=== PATIENT | male | born 1965 | race Caucasian/White ===

== ENCOUNTER → 2021-08-27 | Outpatient (CLI) | payer MEDICAID ==
--- NOTE | 2021-08-27 21:29 | MR ---
EXAMINATION TYPE: MR knee LT wo con DATE OF EXAM: 08/27/2021 COMPARISON: Plain film 08/13/2021 HISTORY: Left knee pain x 2 mos, no trauma. TECHNIQUE: Multiplanar, multisequence imaging of the left knee is performed without IV contrast. FINDINGS: MEDIAL MENISCUS: Suspect partial meniscocapsular separation, coronal image #22 through 25 medially LATERAL MENISCUS: Anterior and posterior horns are intact without tear. CRUCIATE LIGAMENTS: The anterior and posterior cruciate ligaments are intact and unremarkable. COLLATERAL LIGAMENTS: The medial collateral ligament shows fluid signal along its course suggestive o f strain EXTENSOR MECHANISM: Visualized quadriceps and patellar tendons are intact. EFFUSION: Small suprapatellar joint effusion POPLITEAL CYST: Small Rangel's cyst measuring 11 mm x 8 mm x 20 mm TRICOMPARTMENT SPACES: Maintained CARTILAGE: There is grade 2 to grade III chondromalacia in the medial compartment and posterior mensah la BONE MARROW SIGNAL: Suspect possible enchondroma posterior aspect of the distal femoral metaphysis, b one island present within the lateral femoral condyle OTHER: Subcutaneous edema changes present IMPRESSION: Osteoarthritis. Suspect a degree of meniscocapsular separation, medial collateral ligament strain and additional findings above.
== END | disposition home or self-care (01) ==
LOC: RADMRIMAIN 19:49
PROVIDERS: ATTEND Orthopaedic Surgery
DX: M17.12 Unilateral primary osteoarthritis, left knee (principal)

== ENCOUNTER → 2022-12-16 | Outpatient (CLI) | payer OTHER ==
[2022-12-16 16:15] LABS: ALT 42 U/L (10-49); AST 27 U/L (14-35); Albumin 4.5 d/dL (3.8-4.9); Albumin/Globulin Ratio 1.73 Ratio (1.60-3.17); Alkaline Phosphatase 47 U/L (41-126); BUN/Creat Ratio 16.89 Ratio (12.00-20.00); Blood Urea Nitrogen 15.2 mg/dL (9.0-27.0); Calcium 9.6 mg/dL (8.7-10.3); Carbon Dioxide 23.4 mmol/L (21.6-31.8); Chloride 103 mmol/L (96-109); Chol/HDL Ratio 4.71 Ratio; Globulin 2.6 d/dL (1.6-3.3); Glucose 109 mg/dL (70-110); LDL Cholesterol,Calculated 181.5 mg/dL (0.0-131.0); Potassium 4.8 mmol/L (3.5-5.5); Sodium 139 mmol/L (135-145); Total Bilirubin 0.3 mg/dL (0.3-1.2); Total Protein 7.1 d/dL (6.2-8.2)
[2022-12-16 16:22] LABS: Basophils # (A) 0.04 X 10*3/uL (0.00-0.10); Basophils % (A) 0.5 %; Eosinophils # (A) 0.26 X 10*3/uL (0.04-0.35); Eosinophils % (A) 3.3 %; HCT 46.7 % (39.6-50.0); HGB 15.3 d/dL (12.0-15.0); Lymphocytes # (A) 1.27 X 10*3/uL (0.90-5.00); Lymphocytes % (A) 16.3 %; MCH 30.8 pg (27.0-32.0); MCHC 32.8 d/dL (32.0-37.0); Mean Platelet Volume 9.4 FL (9.5-12.2); Monocytes # (A) 0.75 X 10*3/uL (0.20-1.00); Monocytes % (A) 9.6 %; NRBC Per 100 WBC 0 X 10*3/uL (0.00-0.01); Neutrophils # (A) 5.44 X 10*3/uL (1.80-7.70); Platelet Count 320 X 10*3/uL (140-440); RBC 4.97 X 10*6/uL (4.40-5.60); RBC Morphology Normal (Normal); RDW 12.4 % (11.5-14.5); WBC 7.78 X 10*3/uL (4.50-10.00)
== END | disposition home or self-care (01) ==
LOC: LABWHC1 09:41
PROVIDERS: ATTEND Family Medicine
DX: Z00.00 Encounter for general adult medical examination without abnormal findings (principal); E55.9 Vitamin D deficiency, unspecified
CPT/HCPCS: 36415; 80053; 80061; 82306; 84153; 84443; 85025

== ENCOUNTER 2023-04-01 10:13 | Inpatient (IN) | payer OTHER ==
[~2023-04-01 10:13] MED LIST: hydrALAZINE HCL 20 MG/ML 1 ML VIAL IVP ONE
[2023-04-01] MEDS ORDERED: SODIUM CHLORIDE 0.9% 500 ML 500 ML IV STA (10:27)
--- NOTE | 2023-04-01 10:30 | ED ---
General Adult HPI - General Chief complaint: Neuro Symptoms/Deficit Stated complaint: Left side numbness Time Seen by Provider: 04/01/23 10:23 Source: patient, RN notes reviewed, old records reviewed Mode of arrival: ambulatory Limitations: no limitations - History of Present Illness Initial comments: 57-year-old male history of hypertension presenting for evaluation of left arm and leg weakness which began at 2100 yesterday. Patient denies headache. He noted that his arm was both numb and weak and that he was dragging his left leg which was also numb. Patient woke this morning with persistent symptoms and presented for evaluation. No chest pain. No abdominal pain. No headache. - Related Data Home Medications Medication Instructions Recorded Confirmed Acetaminophen-Codeine 300-30mg 1 each PO Q6H PRN 11/04/13 11/05/13 [Tylenol w/codeine #3] Atorvastatin [Lipitor] 10 mg PO DAILY 11/04/13 11/05/13 Cefadroxil 500 mg PO Q12HR 11/04/13 11/05/13 lisinopriL [Zestril] 20 mg PO DAILY PRN 11/04/13 11/05/13 Previous Rx's Medication Instructions Recorded HYDROcodone/APAP 7.5-325MG [[place] 1 - 2 each PO Q6H PRN #60 tab 11/07/13 7.5-325] Allergies Allergy/AdvReac Type Severity Reaction Status Date / Time No Known Allergies Allergy Verified 11/05/13 12:14 Review of Systems ROS Statement: Those systems with pertinent positive or pertinent negative responses have been documented in the HPI. ROS Other: All systems not noted in ROS Statement are negative. Past Medical History Past Medical History: Hyperlipidemia, Hypertension, Osteoarthritis (OA) History of Any Multi-Drug Resistant Organisms: None Reported Past Surgical History: Joint Replacement Additional Past Surgical History / Comment(s): 9 teeth pulled under anesthesia Past Anesthesia/Blood Transfusion Reactions: No Reported Reaction Past Psychological History: No Psychological Hx Reported Past Alcohol Use History: Daily, Heavy Past Drug Use History: Marijuana - Past Family History Father Family Medical History: Cancer General Exam Limitations: no limitations General appearance: alert, in no apparent distress Head exam: Present: atraumatic, normocephalic Eye exam: Present: normal appearance, PERRL ENT exam: Present: normal exam Neck exam: Present: normal inspection. Absent: tenderness, meningismus Respiratory exam: Present: normal lung sounds bilaterally. Absent: respiratory distress, wheezes Cardiovascular Exam: Present: regular rate, normal rhythm GI/Abdominal exam: Present: soft. Absent: distended, tenderness, guarding Extremities exam: Present: normal inspection, normal capillary refill Neurological exam: Present: alert, oriented X3, CN II-XII intact, motor sensory deficit (Left upper extremity numbness, weakness, ataxia, left lower extremity numbness and weakness and ataxia. NIH of 6) Psychiatric exam: Present: normal affect, normal mood Skin exam: Present: warm, dry, intact. Absent: cyanosis, diaphoretic Course Vital Signs 04/01/23 04/01/23 04/01/23 10:17 10:35 10:50 Temperature 98.1 F 98.1 F Pulse Rate 78 83 70 Respiratory 20 18 18 Rate Blood Pressure 205/91 198/101 203/103 O2 Sat by Pulse 99 97 96 Oximetry 04/01/23 04/01/23 04/01/23 11:05 11:20 11:35 Temperature 98.0 F Pulse Rate 73 59 L 72 Respiratory 18 18 18 Rate Blood Pressure 191/102 201/104 204/112 O2 Sat by Pulse 96 96 96 Oximetry 04/01/23 12:00 Temperature 98.1 F Pulse Rate 59 L Respiratory 18 Rate Blood Pressure 196/95 O2 Sat by Pulse 95 Oximetry - Reevaluation(s) Reevaluation #1: 04/01/23 10:[address] Jonas. 04/01/23 12:[address] Jonas, recommends medical management Reevaluation #2: 04/01/23 12:24 NIH of 6 Medical Decision Making - Medical Decision Making Was pt. sent in by a medical professional or institution (, PA, MEDIA ARTS PROFESSOR, urgent care, hospital, or fci...) When possible be specific @ -No Did you speak to anyone other than the patient for history (EMS, parent, family, police, friend...)? What history was obtained from this source @ -No Did you review nursing and triage notes (agree or disagree)? Why? @ -I reviewed and agree with nursing and triage notes Were old charts reviewed (outside hosp., previous admission, EMS record, old EKG, old radiological studies, urgent care reports/EKG's, fci records)? Report findings @ -No old charts were reviewed Differential Diagnosis (chest pain, altered mental status, abdominal pain women, abdominal pain men, vaginal bleeding, weakness, fever, dyspnea, syncope, headache, dizziness, GI bleed, back pain, seizure, CVA, palpatations, mental health, musculoskeletal)? @ -[Differential CVA Ischemic stroke, hemorrhagic stroke, brain tumor, atypical migraine, Wernicke's encephalopathy, seizure, multiple sclerosis, meningitis, encephalitis, hypoglycemia, Guillain-Mason, electrolytes disturbance, myasthenia gravis.... This is not meant to be an all-inclusive list EKG interpreted by me (3pts min.). @ -Sinus rhythm rate of 78, RI interval 200, QRS duration 92, QTC 414, no ST segment elevation. X-rays interpreted by me (1pt min.). @ -None done CT interpreted by me (1pt min.). @CT brain without contrast, negative for hemorrhage U/S interpreted by me (1pt. min.). @ -None done What testing was considered but not performed or refused? (CT, X-rays, U/S, labs)? Why? @ -None What meds were considered but not given or refused? Why? @ -None Did you discuss the management of the patient with other professionals (professionals i.e. , PA, MEDIA ARTS PROFESSOR, lab, RT, psych nurse, social security specialist, burn center nurse, t eacher, combatant diver officer, employment case manager)? Give summary @Dr. Garcia, [facility] Was smoking cessation discussed for >3mins.? @ -No Was critical care preformed (if so, how long)? @ -Yes, 35 minutes Were there social determinants of health that impacted care today? How? (Homelessness, low income, unemployed, alcoholism, drug addiction, transportation, low edu. Level, literacy, decrease access to med. care, nursing home, rehab)? @ -No Was there de-escalation of care discussed even if they declined (Discuss DNR or withdrawal of care, Hospice)? DNR status @ -No What co-morbidities impacted this encounter? (DM, HTN, Smoking, COPD, CAD, Cancer, CVA, ARF, Chemo, Hep., AIDS, mental health diagnosis, sleep apnea, morbid obesity)? @ -Hypertension Was patient admitted / discharged? Hospital course, mention meds given and route, prescriptions, significant lab abnormalities, going to OR and other pertinent info. @ -[57-year-old male with left-sided weakness and numbness. Patient has initial NIH of 6 Weakness, numbness and ataxia in both the left arm and left leg. A code stroke is activated. The patient receives both CT CT angiography which are reviewed both by radiology and by interventional neurology. Patient's symptom onset time excludes him from TPA. He will require medical management for acute CVA. He'll be admitted to Dr. Garcia who is aware with neurology on consult. Undiagnosed new problem with uncertain prognosis? @ -No Drug Therapy requiring intensive monitoring for toxicity (Heparin, Nitro, Insu emely, Cardizem)? @ -No Were any procedures done? @ -No Diagnosis/symptom? @Acute CVA with left-sided weakness Acute, or Chronic, or Acute on Chronic? @ -Acute Uncomplicated (without systemic symptoms) or Complicated (systemic symptoms)? @ -Complicated Side effects of treatment? @ -No Exacerbation, Progression, or Severe Exacerbation? @ -No Poses a threat to life or bodily function? How? (Chest pain, [place], [place], pneumonia, PE, COPD, DKA, ARF, appy, cholecystitis, CVA, Diverticulitis, Homicidal, Suicidal, threat to staff... and all critical care pts) @ -[Yes, CVA - Lab Data Result diagrams: 04/01/23 10:37 04/01/23 10:37 Lab Results 04/01/23 04/01/23 04/01/23 Range/Units 10:34 10:37 10:37 WBC 7.9 (3.8-10.6) k/uL RBC 4.80 (4.30-5.90) m/uL Hgb 15.3 (13.0-17.5) gm/dL Hct 45.6 (39.0-53.0) % MCV 94.8 (80.0-100.0) fL MCH 31.8 (25.0-35.0) pg MCHC 33.5 (31.0-37.0) g/dL RDW 12.4 (11.5-15.5) % Plt Count 313 (150-450) k/uL MPV 6.8 Neutrophils % 73 % Lymphocytes % 15 % Monocytes % 8 % Eosinophils % 2 % Basophils % 0 % Neutrophils # 5.7 (1.3-7.7) k/uL Lymphocytes # 1.2 (1.0-4.8) k/uL Monocytes # 0.6 (0-1.0) k/uL Eosinophils # 0.2 (0-0.7) k/uL Basophils # 0.0 (0-0.2) k/uL PT 10.1 (9.0-12.0) sec INR 1.0 (<1.2) APTT 24.3 (22.0-30.0) sec Sodium (137-145) mmol/L Potassium (3.5-5.1) mmol/L Chloride (98-107) mmol/L Carbon Dioxide (22-30) mmol/L Anion Gap mmol/L BUN (9-20) mg/dL Creatinine (0.66-1.25) mg/dL Est GFR (CKD-EPI)AfAm (>60 ml/min/1.73 sqM) Est GFR (CKD-EPI)NonAf (>60 ml/min/1.73 sqM) Glucose (74-99) mg/dL POC Glucose (mg/dL) 114 H (70-110) mg/dL POC Glu News Librarian ID Les Garza Calcium (8.4-10.2) mg/dL Total Bilirubin (0.2-1.3) mg/dL AST (17-59) U/L ALT (4-49) U/L Alkaline Phosphatase (38-126) U/L Creatine Kinase (55-170) U/L Troponin I (0.000-0.034) ng/mL Total Protein (6.3-8.2) g/dL Albumin (3.5-5.0) g/dL 04/01/23 04/01/23 Range/Units 10:37 10:37 WBC (3.8-10.6) k/uL RBC (4.30-5.90) m/uL Hgb (13.0-17.5) gm/dL Hct (39.0-53.0) % MCV (80.0-100.0) fL MCH (25.0-35.0) pg MCHC (31.0-37.0) g/dL RDW (11.5-15.5) % Plt Count (150-450) k/uL MPV Neutrophils % % Lymphocytes % % Monocytes % % Eosinophils % % Basophils % % Neutrophils # (1.3-7.7) k/uL Lymphocytes # (1.0-4.8) k/uL Monocytes # (0-1.0) k/uL Eosinophils # (0-0.7) k/uL Basophils # (0-0.2) k/uL PT (9.0-12.0) sec INR (<1.2) APTT (22.0-30.0) sec Sodium 138 (137-145) mmol/L Potassium 4.3 (3.5-5.1) mmol/L Chloride 103 (98-107) mmol/L Carbon Dioxide 26 (22-30) mmol/L Anion Gap 9 mmol/L BUN 14 (9-20) mg/dL Creatinine 0.80 (0.66-1.25) mg/dL Est GFR (CKD-EPI)AfAm >90 (>60 ml/min/1.73 sqM) Est GFR (CKD-EPI)NonAf >90 (>60 ml/min/1.73 sqM) Glucose 118 H (74-99) mg/dL POC Glucose (mg/dL) (70-110) mg/dL POC Glu News Librarian ID Calcium 9.7 (8.4-10.2) mg/dL Total Bilirubin 1.0 (0.2-1.3) mg/dL AST 30 (17-59) U/L ALT 36 (4-49) U/L Alkaline Phosphatase 46 (38-126) U/L Creatine Kinase 134 (55-170) U/L Troponin I <0.012 (0.000-0.034) ng/mL Total Protein 7.8 (6.3-8.2) g/dL Albumin 4.6 (3.5-5.0) g/dL Critical Care Time Critical Care Time: Yes Total Critical Care Time: 35 Disposition Clinical Impression: Cerebrovascular accident (CVA) Disposition: ADMITTED IP TO THIS [facility] Condition: Stable Is patient prescribed a controlled substance at d/c from ED?: No Referrals: Jonathan Araiza [Primary Care Provider] - 1-2 days Time of Disposition: 12:27
[2023-04-01 10:36] LABS: Glucose,Whole Blood 114 mg/dL (70-110)
[2023-04-01 11:06] LABS: Basophils % (A) 0 %; Eosinophils # (A) 0.2 k/uL (0-0.7); Eosinophils % (A) 2 %; HCT 45.6 % (39.0-53.0); HGB 15.3 gm/dL (13.0-17.5); Lymphocytes # (A) 1.2 k/uL (1.0-4.8); Lymphocytes % (A) 15 %; MCH 31.8 pg (25.0-35.0); MCHC 33.5 g/dL (31.0-37.0); MCV 94.8 fL (80.0-100.0); Mean Platelet Volume 6.8; Monocytes # (A) 0.6 k/uL (0-1.0); Monocytes % (A) 8 %; Neutrophils # (A) 5.7 k/uL (1.3-7.7); Neutrophils % (A) 73 %; Platelet Count 313 k/uL (150-450); RDW 12.4 % (11.5-15.5); WBC 7.9 k/uL (3.8-10.6)
--- NOTE | 2023-04-01 11:07 | CT ---
EXAMINATION TYPE: CT brain wo con DATE OF EXAM: 04/01/2023 COMPARISON: None HISTORY: CODE STROKE CT DLP: 1973.6 mGycm Automated exposure control for dose reduction was used. FINDINGS: The ventricles, basal cisterns and sulci over convexities within normal limits. There is no mass effe ct or shift of midline structures. No abnormal density is seen throughout the brain parenchyma and there is no acute intra or extra-axia l hemorrhage. The posterior fossa is grossly normal. Intraorbital contents appear normal and symmetric. The paranasal sinuses and mastoid air cells are well aerated. IMPRESSION: No acute bleed or mass effect. IMPRESSION:
[2023-04-01 11:19] LABS: ALT 36 U/L (4-49); AST 30 U/L (17-59); African American GFR (CKD) >90 (>60 ml/min/1.73 sqM); Albumin 4.6 g/dL (3.5-5.0); Alkaline Phosphatase 46 U/L (38-126); Anion Gap 9 mmol/L; Blood Urea Nitrogen 14 mg/dL (9-20); Calcium 9.7 mg/dL (8.4-10.2); Carbon Dioxide 26 mmol/L (22-30); Chloride 103 mmol/L (98-107); Creatine Kinase 134 U/L (55-170); Glucose 118 mg/dL (74-99); Non-African American GFR(CKD) >90 (>60 ml/min/1.73 sqM); Potassium 4.3 mmol/L (3.5-5.1); Sodium 138 mmol/L (137-145); Total Protein 7.8 g/dL (6.3-8.2)
[2023-04-01 11:22] LABS: Partial Thromboplastin Time 24.3 sec (22.0-30.0); Prothrombin Time 10.1 sec (9.0-12.0)
[2023-04-01] MEDS ORDERED: ASPIRIN 325 MG TAB PO STA (11:34)
--- NOTE | 2023-04-01 11:58 | CT ---
EXAMINATION TYPE: CT angio head neck DATE OF EXAM: 04/01/2023 HISTORY: Code Stroke COMPARISON: None CT DLP: 1973.6 mGycm. Automated Exposure Control for Dose Reduction was Utilized. TECHNIQUE: CTA scan of the head and neck is performed without and with IV Contrast, patient injected with 65 ml mL of Isovue 370, axial images are obtained, coronal and sagittal reformatted images are reviewed. 3D reconstructed images are created on an independent workstation and reviewed. 3-D postpro cessing was performed FINDINGS: CTA neck: The brachiocephalic origins are widely patent. There is no significant stenosis of the common or or internal carotid arteries within the neck. There is minimal calcified plaque formation in the proximal internal carotid arteries bilaterally. The right vertebral artery is dominant but there is no vertebral artery stenosis. CTA HEAD: Intracranially, there is no segmental occlusion, sizable aneurysm sac or vascular malformation.. IMPRESSION: No significant arterial disease of the head and neck as described above.
[2023-04-01] MEDS: SODIUM CHLORIDE 0.9% 1,000 ML IV SCH (12:18)
--- NOTE | 2023-04-01 12:48 | XR ---
EXAMINATION TYPE: XR chest 2V DATE OF EXAM: 04/01/2023 COMPARISON: NONE HISTORY: Altered mental status TECHNIQUE: Frontal and lateral views of the chest are obtained. FINDINGS: There is no focal air space opacity, pleural effusion, or pneumothorax seen. The cardiac silhouette size is within normal limits. The osseous structures are intact. IMPRESSION: No acute cardiopulmonary process.
[2023-04-01] MEDS ORDERED: ACETAMINOPHEN TAB 325 MG TAB PO PRN (13:47)
[2023-04-01] MEDS ORDERED: hydrALAZINE HCL 20 MG/ML 1 ML VIAL IVP PRN (13:56)
--- NOTE | 2023-04-01 13:57 | P.HPIM ---
History of Present Illness H&P Date: 04/01/23 History of present illness; patient is a 57-year-old gentleman with past medical significant for hypertension and apparent the ER because of left-sided weakness that started yesterday. Patient stated that he was all right yesterday evening at around 9 PM started noticing that his left arm and leg were numb and also weaker. Denied any slurred speech. There was no complaint of any facial droop. No complain of any recent fall. Patient initially did not pay any attention to it as he has history of sciatica and thought it was secondary to that. Patient went to sleep and woke up this morning with persistent weakness of left side. Because of this persistent weakness, patient came to the ER Initial lab work done in the ER showed WBC 7.9, hemoglobin 15.3, platelet count 313, sodium 138, potassium 4.3, BUN 14, glucose 118, AST 30 ALT 36 troponin 0.012 EKG done in the ER showed heart rate of 78, normal sinus rhythm, no ST segment elevation or T-wave inversion noticeable CT brain negative for acute cranial process CTA head and neck negative for any significant stenosis of head and neck circulation Chest x-ray done in the ER for any acute cardiopulmonary process ER physician talked to the on-call interventional neurologist and was decided the patient was not a candidate for TPA, they recommended MRI and medical management Patient admitted to medicine service REVIEW OF SYSTEMS: CONSTITUTIONAL: No fever, no malaise, no fatigue. HEENT: No recent visual problems or hearing problems. Denied any sore throat. CARDIOVASCULAR: No chest pain, orthopnea, PND, no palpitations, no syncope. PULMONARY: No shortness of breath, no cough, no hemoptysis. GASTROINTESTINAL: No diarrhea, no nausea, no vomiting, no abdominal pain. NEUROLOGICAL: As mentioned in HPI HEMATOLOGICAL: Denies any bleeding or petechiae. GENITOURINARY: Denies any burning micturition, frequency, or urgency. MUSCULOSKELETAL/RHEUMATOLOGICAL: Denies any joint pain, swelling, or any muscle pain. ENDOCRINE: Denies any polyuria or polydipsia. The rest of the 14-point review of systems is negative. PHYSICAL EXAMINATION: GENERAL: The patient is alert and oriented x3, not in any acute distress. Well developed, well nourished. HEENT: Pupils are round and equally reacting to light. EOMI. No scleral icterus. No conjunctival pallor. Normocephalic, atraumatic. No pharyngeal erythema. No th yromegaly. CARDIOVASCULAR: S1 and S2 present. No murmurs, rubs, or gallops. PULMONARY: Chest is clear to auscultation, no wheezing or crackles. ABDOMEN: Soft, nontender, nondistended, normoactive bowel sounds. No palpable organomegaly. MUSCULOSKELETAL: No joint swelling or deformity. EXTREMITIES: No cyanosis, clubbing, or pedal edema. NEUROLOGICAL: Gross neurological examination did not reveal any focal deficits. Muscle strength 4/5 in left upper and lower extremity, muscle strength 5 x 5 in right side. Decreased sensation to touch noticeable in left arm and leg. Plantars are downgoing bilaterally SKIN: No rashes. Assessment and plan Acute CVA Hypertension Monitor vital signs Monitor CBC Monitor CMP Continue telemetry monitoring Continue neurochecks Ordered HbA1c level Order lipid panel Continue aspirin and Lipitor Ordered 2-D echo Ordered MRI brain Consult neurology PT and OT consulted Labs and medication were reviewed.. Continue same treatment. Continue with symptomatic treatment. Resume home medication. Monitor labs and vitals. DVT and GI prophylaxis. Further recommendations as per clinical course of the patient Dictation was produced using [employer] dictation software. please excuse any grammatical, word or spelling errors. Past Medical History Past Medical History: Hyperlipidemia, Hypertension, Osteoarthritis (OA) History of Any Multi-Drug Resistant Organisms: None Reported Past Surgical History: Joint Replacement Additional Past Surgical History / Comment(s): 9 teeth pulled under anesthesia Past Anesthesia/Blood Transfusion Reactions: No Reported Reaction Past Psychological History: No Psychological Hx Reported Past Alcohol Use History: Daily, Heavy Past Drug Use History: Marijuana - Past Family History Father Family Medical History: Cancer Medications and Allergies Home Medications Medication Instructions Recorded Confirmed Type amLODIPine [Norvasc] 2.5 mg PO DAILY 04/01/23 04/01/23 History lisinopriL 30 mg PO DAILY 04/01/23 04/01/23 History Allergies Allergy/AdvReac Type Severity Reaction Status Date / Time No Known Allergies Allergy Verified 04/01/23 12:57 Physical Exam Vitals: Vital Signs Temp Pulse Resp BP Pulse Ox 04/01/23 12:30 65 18 187/97 96 04/01/23 12:00 98.1 F 59 L 18 196/95 95 04/01/23 11:35 72 18 204/112 96 04/01/23 11:20 59 L 18 201/104 96 04/01/23 11:05 98.0 F 73 18 191/102 96 04/01/23 10:50 70 18 203/103 96 04/01/23 10:35 98.1 F 83 18 198/101 97 04/01/23 10:17 98.1 F 78 20 205/91 99 Intake and Output 03/31/23 04/01/23 04/01/23 22:59 06:59 14:59 Other: Weight 97.522 kg Results CBC & Chem 7: 04/01/23 10:37 04/01/23 10:37 Labs: Abnormal Lab Results - Last 24 Hours (Table) 04/01/23 04/01/23 Range/Units 10:34 10:37 Glucose 118 H (74-99) mg/dL POC Glucose (mg/dL) 114 H (70-110) mg/dL
--- NOTE | 2023-04-01 18:12 | P.CNNES ---
History of Present Illness Consult date: 04/01/23 Requesting physician: Dereje Lynch Reason for Consult: cva History of Present Illness: This is a 57-year-old gentleman with history of hypertension who presented to the department on 04/01/2023 because of left-sided weakness and numbness. He presented today aorund 10:13am. He stated that his left-sided weakness and numbness began yesterday around 7 PM borders mild then when he woke up today he felt was not much worse especially left upper extremity. He saw his symptoms will improve is why he did not seek any medical attention. He states that he has history of hypertension and his blood pressure is in the 140s at. He denies being on any antiplatelets or anticoagulation. Denies history of stroke or TIA in the past. As of tobacco use. Denies of any illicit drug use. He states he drinks sixpack every other day. He denies of any headache. Denies of any finding difficulty, any difficulty swallowing. Some other workup during this hospital visit consisted of: Initial vital signs his blood pressure is 205/91 and his systolic blood pressure has been in the range of 190s to 200s diastolic has been in the range of 90s to 100s. CBC with differential, chemistry panel seems unremarkable CT angiography the head and neck was reported as no significant arterial disease of the head and neck as described above. CT of the head is reported as no acute bleed or mass effect. Personally review the CT head and was no large or significant acute or subacute ischemia and there is no bleed. Stroke code was activated by ED team. NIH stroke scale is 6. No IV tpa since outside window since last normal was on 03/31/23 at 7pm. Review of Systems Review of system is a positive and negative as per HPI. Past Medical History Past Medical History: Hyperlipidemia, Hypertension, Osteoarthritis (OA) History of Any Multi-Drug Resistant Organisms: None Reported Past Surgical History: Joint Replacement Additional Past Surgical History / Comment(s): 9 teeth pulled under anesthesia Past Anesthesia/Blood Transfusion Reactions: No Reported Reaction Past Psychological History: No Psychological Hx Reported Past Alcohol Use History: Daily, Heavy Past Drug Use History: Marijuana - Past Family History Father Family Medical History: Cancer Medications and Allergies Home Medications Medication Instructions Recorded Confirmed Type amLODIPine [Norvasc] 2.5 mg PO DAILY 04/01/23 04/01/23 History lisinopriL 30 mg PO DAILY 04/01/23 04/01/23 History Allergies Allergy/AdvReac Type Severity Reaction Status Date / Time No Known Allergies Allergy Verified 04/01/23 12:57 Physical Examination - Vital Signs Vital Signs: Vital Signs Temp Pulse Resp BP Pulse Ox 04/01/23 16:30 86 18 168/91 96 04/01/23 15:30 98.0 F 80 18 184/96 95 04/01/23 13:50 59 L 18 182/97 94 L 04/01/23 13:30 76 18 201/108 96 04/01/23 13:00 65 18 185/98 96 04/01/23 12:30 65 18 187/97 96 04/01/23 12:00 98.1 F 59 L 18 196/95 95 04/01/23 11:35 72 18 204/112 96 04/01/23 11:20 59 L 18 201/104 96 04/01/23 11:05 98.0 F 73 18 191/102 96 04/01/23 10:50 70 18 203/103 96 04/01/23 10:35 98.1 F 83 18 198/101 97 04/01/23 10:17 98.1 F 78 20 205/91 99 Intake and Output 04/01/23 04/01/23 04/01/23 06:59 14:59 22:59 Other: Weight 97.522 kg GENERAL: The patient is lying in bed and is not in acute distress. NEUROLOGICAL: Higher mental function: The patient is awake, alert, oriented to self, place and time. Patient is following commands. No aphasia and no neglect. Cranial nerves: The pupils are round, equal and reactive to light and accommodation. Visual davis are full to confrontation throughout. Extraocular movement is intact no nystagmus is noted. Facial sensation is normal to touch throughout. The facial strength is normal throughout. Hearing is normal bilaterally to hand rub. Tongue is midline and moved [id number] without any difficulty. No dysarthria is noted. Shoulder shrug is normal bilaterally. Motor: The strength is left upper exremity is 3-4 over the upper extremity extensor with left hand camera assembler 4- with left arm drift. Left lower extremity is 4+. Otherwise 5 over 5 throughout right side. Mildly decrease tone over the left side. Normal bulk. Cerebellum: Difficulty perfroming left since weakness. But normal finger to nose heel to lilly on the right. . Sensation: Sensation is normal to touch throughout. Reflexes (right/left): 2+ throughout. Plantars are downgoing bilaterally. Results - Laboratory Findings CBC and BMP: 04/01/23 10:37 04/01/23 10:37 Abnormal Lab Findings: Abnormal Labs 04/01/23 04/01/23 10:34 10:37 Glucose 118 H POC Glucose (mg/dL) 114 H Assessment and Plan Assessment: This is a 57-year-old gentleman with history of hypertension and states his blood pressure runs in the 140s who presents them are department on 04/01/2023 in morning because of left-sided weakness and numbness that began on 03/31/2023 around 7 PM. He felt his symptoms were mild at night yesterday but was worse when he woke up today. Acute left-sided weakness with numbness and had NIH stroke scale of a 6 in the ED is likely due to acute ischemic stroke. Escalated hypertension and the blood pressure has been in the 200s over 90s to 100 History of hypertension Alcohol use and he drinks 6 pack every other day Plan: In the ED the patient was given aspirin 325mg once then was started on aspirin 325 daily. In addition I started the patient on Plavix 75 mg daily. He was started by ED team on Lipitor 80 mg daily at bedtime for secondary stroke prophylaxis. MR the brain, 2-D echo, lipid panel, hemoglobin A1c are ordered and pending. I ordered TSH level Continue Neuro checks Cardiac monitoring PT OT and CHILDREN'S BOOK AUTHOR are consulted Please avoid aggressive management of the hypertension and recommend permissive hypertension for 24-48 hours. Treat systolic blood pressure of more than 180. Placed the patient on thiamine 100 mg daily because of his alcohol use and he drinks 6 packs every other day and he was notified to decrease the consumption when he does drink on that particular day I ordered alcohol level as well as urine drug screen We'll defer the rest of the medical management to primary team For DVT prophylaxis I started the patient on subcu heparin 5000 Hz every 12 hours The plan discussed with the patient and his nurse Thank you consultation Time with Patient: Greater than 30
[2023-04-01 19:06] LABS: Alcohol <10 mg/dL
[2023-04-01 20:03] LABS: Amphetamine Screen,Urine Not Detected (NotDetected); Barbiturate Screen,Urine Not Detected (NotDetected); Benzodiazepines Screen,Urine Not Detected (NotDetected); Cocaine Screen,Urine Not Detected (NotDetected); Methadone Screen, Urine Not Detected (NotDetected); Opiate Screen,Urine Not Detected (NotDetected); Oxycodone Screen, Urine Not Detected (NotDetected); Phencyclidine Screen,Urine Not Detected (NotDetected); Tricyclic Antidepressant,Urine Not Detected (NotDetected); Urn Cannabinoid Scrn Detected (NotDetected)
[2023-04-01] MEDS: ATORVASTATIN 80 MG TAB PO SCH (22:23)
[2023-04-01] MEDS: HEPARIN SODIUM,PORCINE 5,000 UNIT/ML 1 ML VIAL SQ SCH (22:23)
[2023-04-01] MEDS: CLOPIDOGREL 75 MG TAB PO SCH (22:23)
[2023-04-02] MEDS: SODIUM CHLORIDE 0.9% 1,000 ML IV SCH ×2 (02:52→18:11)
[2023-04-02] MEDS ORDERED: hydrALAZINE HCL 20 MG/ML 1 ML VIAL IVP STA (04:18)
[2023-04-02] MEDS: CLOPIDOGREL 75 MG TAB PO SCH (09:11)
[2023-04-02] MEDS: THIAMINE 100 MG TAB PO SCH (09:11)
[2023-04-02] MEDS: ASPIRIN 325 MG TAB PO SCH (09:11)
[2023-04-02] MEDS: HEPARIN SODIUM,PORCINE 5,000 UNIT/ML 1 ML VIAL SQ SCH ×2 (09:11→20:12)
--- NOTE | 2023-04-02 11:43 | P.PN ---
Subjective Progress Note Date: 04/02/23 I am following-up with patient and he felt minimally better today in his strength in left upper extremity. He had some numbness over the left cheek. Otherwise feels about the same. Objective - Vital Signs Vital signs: Vital Signs Temp 98.2 F 04/02/23 11:29 Pulse 70 04/02/23 11:29 Resp 17 04/02/23 11:29 BP 171/94 04/02/23 11:29 Pulse Ox 99 04/02/23 11:29 FiO2 Intake & Output 04/01/23 04/02/23 04/02/23 18:59 06:59 18:59 Intake Total 118 Output Total 1300 250 Balance -1300 -132 Weight 97.522 kg Intake: Oral 118 Output: Urine 1300 250 Other: Voiding Method Urinal Urinal # Voids 2 - Exam GENERAL: The patient is lying in bed and is not in acute distress. NEUROLOGICAL: Higher mental function: The patient is awake, alert, oriented to self, place and time. Patient is following commands. No aphasia and no neglect. Cranial nerves: The pupils are round, equal and reactive to light and accommodation. Visual davis are full to confrontation throughout. Extraocular movement is intact no nystagmus is noted. Facial sensation is mildly decreased over the V2 distribution to touch. The facial strength is normal throughout. Hearing is normal bilaterally to hand rub. Tongue is midline and moved side -to-side without any difficulty. No dysarthria is noted. Shoulder shrug is normal bilaterally. Motor: The strength is left upper exremity is 3-4 over the upper extremity extensor with left hand hr manager 4- with left arm drift. Left lower extremity is 4+. Otherwise 5 over 5 throughout right side. Mildly decrease tone over the left side. Normal bulk. Cerebellum: Difficulty perfroming left since weakness. But normal finger to nose heel to lilly on the right. . Sensation: Sensation is normal to touch throughout. Reflexes (right/left): 2+ throughout. Plantars are downgoing bilaterally. Some other workup during this hospital visit consisted of: TSH: 3.24 CBC with differential, chemistry panel seems unremarkable UDS is positive for Marijuana and serum alcohol is <10. CT angiography the head and neck was reported as no significant arterial disease of the head and neck as described above. CT of the head is reported as no acute bleed or mass effect. Personally review the CT head and was no large or significant acute or subacute ischemia and there is no bleed. - Labs CBC & Chem 7: 04/01/23 10:37 04/01/23 10:37 Labs: Abnormal Lab Results - Last 24 Hours (Table) 04/01/23 Range/Units 19:17 U Marijuana (THC) Screen Detected H (NotDetected) Assessment and Plan Assessment: This is a 57-year-old gentleman with history of hypertension and states his blood pressure runs in the 140s who presents them are department on 04/01/2023 in morning because of left-sided weakness and numbness that began on 03/31/2023 around 7 PM. He felt his symptoms were mild at night yesterday but was worse when he woke up today. Acute left-sided weakness with numbness and had NIH stroke scale of a 6 in the ED is likely due to acute ischemic stroke. Escalated hypertension and the blood pressure has been in the 200s over 90s to 100 History of hypertension Alcohol use and he drinks 6 pack every other day Plan: Continue ASA 325mg daily and Plavix 75mg daily (was not on antiplatelets prior to this). Continue Lipitor 80 mg daily at bedtime for secondary stroke prophylaxis. MR the brain, 2-D echo, lipid panel, hemoglobin A1c are ordered and pending. Continue Neuro checks Cardiac monitoring PT OT and BOX STACKER are consulted Please avoid aggressive management of the hypertension and recommend permissive hypertension for 24 hours. Treat systolic blood pressure of more than 180. Placed the patient on thiamine 100 mg daily because of his alcohol use and he drinks 6 packs every other day and he was notified to decrease the consumption when he does drink on that particular day We'll defer the rest of the medical management to primary team For DVT prophylaxis On subcu heparin 5000 Hz every 12 hours The plan discussed with the patient. Dr. Celaya will start neurology service tomorrow A.M. Time with Patient: Less than 30
--- NOTE | 2023-04-02 12:10 | P.PN ---
Subjective Progress Note Date: 04/02/23 patient is a 57-year-old gentleman with past medical significant for hypertension and apparent the ER because of left-sided weakness that started yesterday. Patient stated that he was all right yesterday evening at around 9 PM started noticing that his left arm and leg were numb and also weaker. Denied any slurred speech. There was no complaint of any facial droop. No complain of any recent fall. Patient initially did not pay any attention to it as he has history of sciatica and thought it was secondary to that. Patient went to sleep and woke up this morning with persistent weakness of left side. Because of this persistent weakness, patient came to the ER Initial lab work done in the ER showed WBC 7.9, hemoglobin 15.3, platelet count 313, sodium 138, potassium 4.3, BUN 14, glucose 118, AST 30 ALT 36 troponin 0.012 EKG done in the ER showed heart rate of 78, normal sinus rhythm, no ST segment elevation or T-wave inversion noticeable CT brain negative for acute cranial process CTA head and neck negative for any significant stenosis of head and neck circulation Chest x-ray done in the ER for any acute cardiopulmonary process ER physician talked to the on-call interventional neurologist and was decided the patient was not a candidate for TPA, they recommended MRI and medical management Patient admitted to medicine service 04/02. Patient seen and examined. No acute issues overnight. Still has weakness of left side. Denies any slurred speech REVIEW OF SYSTEMS: CONSTITUTIONAL: No fever, no malaise,. CARDIOVASCULAR: No chest pain, no palpitations, no syncope. PULMONARY: No shortness of breath, no cough, GASTROINTESTINAL: No diarrhea, no nausea, no vomiting, no abdominal pain. NEUROLOGICAL: No headaches, no weakness, PHYSICAL EXAMINATION: GENERAL: The patient is alert and oriented x3, not in any acute distress. Well developed, well nourished. HEENT: Pupils are round and equally reacting to light. EOMI. No scleral icterus. No conjunctival pallor. Normocephalic, atraumatic. No pharyngeal erythema. No thyromegaly. CARDIOVASCULAR: S1 and S2 present. No murmurs, rubs, or gallops. PULMONARY: Chest is clear to auscultation, no wheezing or crackles. ABDOMEN: Soft, nontender, nondistended, normoactive bowel sounds. No palpable organomegaly. MUSCULOSKELETAL: No joint swelling or deformity. EXTREMITIES: No cyanosis, clubbing, or pedal edema. NEUROLOGICAL:. Cranial nerves II through XII intact Muscle strength 4/5 in left upper and lower extremity, muscle strength 5 x 5 in right side. Decreased sensation to touch noticeable in left arm and leg. Plantars are downgoing bilaterally SKIN: No rashes. Assessment and plan Acute CVA Hypertension Monitor vital signs Monitor CBC Monitor CMP Continue telemetry monitoring Continue neurochecks Ordered HbA1c level Order lipid panel Continue aspirin and Lipitor Ordered 2-D echo Ordered MRI brain Follow-up on neurology recommendations Follow-up on PT and OT recommendations Labs and medication were reviewed.. Continue same treatment. Continue with sym ptomatic treatment. Resume home medication. Monitor labs and vitals. DVT and GI prophylaxis. Further recommendations as per clinical course of the patient Dictation was produced using [employer] dictation software. please excuse any grammatical, word or spelling errors. Objective - Vital Signs Vital signs: Vital Signs Temp 98.0 F 04/02/23 08:10 Pulse 69 04/02/23 08:10 Resp 17 04/02/23 08:10 BP 169/87 04/02/23 08:10 Pulse Ox 97 04/02/23 09:14 FiO2 Intake & Output 04/01/23 04/02/23 04/02/23 18:59 06:59 18:59 Intake Total 118 Output Total 1300 250 Balance -1300 -132 Weight 97.522 kg Intake: Oral 118 Output: Urine 1300 250 Other: Voiding Method Urinal Urinal # Voids 2 - Labs CBC & Chem 7: 04/01/23 10:37 04/01/23 10:37 Labs: Abnormal Lab Results - Last 24 Hours (Table) 04/01/23 04/01/23 04/01/23 Range/Units 10:34 10:37 19:17 Glucose 118 H (74-99) mg/dL POC Glucose (mg/dL) 114 H (70-110) mg/dL U Marijuana (THC) Screen Detected H (NotDetected)
--- NOTE | 2023-04-02 13:15 | CA ---
Transthoracic Echo Report Name: Ralph Peacock Age: 57 Gender: M : 1965 Exam Date: 04/01/2023 15:19 Exam Location: [facility] Ht (in): 67 Wt (lb): 215 Ordering Physician: Velasquez Garcia MD Attending/Referring Phys: Manager Of Planning Alona Delcid RDCS Procedure CPT: Indications: Thrombus Cardiac Hx: Technical Quality: Technically difficult study Contrast 1: Lumason Total Dose (mL): 4 Contrast 2: Total Dose (mL): MEASUREMENTS (Male / Female) Normal Values 2D ECHO LV Diastolic Diameter PLAX 4.1 cm 4.2 - 5.9 / 3.9 - 5.3 cm LV Systolic Diameter PLAX 2.7 cm IVS Diastolic Thickness 1.5 cm 0.6 - 1.0 / 0.6 - 0.9 cm LVPW Diastolic Thickness 1.4 cm 0.6 - 1.0 / 0.6 - 0.9 cm LV Relative Wall Thickness 0.7 RV Internal Dim ED PLAX 3.5 cm LA Volume 68.7 cm??? 18 - 58 / 22 - 52 cm??? M-MODE Aortic Root Diameter MM 3.8 cm LA Systolic Diameter MM 2.7 cm LA Ao Ratio MM 0.7 AV Cusp Separation MM 1.9 cm DOPPLER AV Peak Velocity 149.7 cm/s AV Peak Gradient 9.0 mmHg AV Mean Velocity 95.4 cm/s AV Mean Gradient 4.3 mmHg AV Velocity Time Integral 27.2 cm LVOT Peak Velocity 115.5 cm/s LVOT Peak Gradient 5.3 mmHg LVOT Velocity Time Integral 22.5 cm MV Area PHT 3.0 cm??? Mitral E Point Velocity 52.0 cm/s Mitral A Point Velocity 74.1 cm/s Mitral E to A Ratio 0.7 MV Deceleration Time 253.1 ms MV E' Velocity 5.9 cm/s Mitral E to MV E' Ratio 8.8 FINDINGS Left Ventricle Moderately increased left ventricular wall thickness. Left ventricular cavity size normal. Normal left ventricular systolic function with no obvious regional wall motion abnormalities. Left ventricular ejection fraction is estimated at 55-60 %. Right Ventricle Mild right ventricular dilatation. Right ventricular systolic pressure within normal limits. Right Atrium Normal right atrial size. Left Atrium Mildly increased left atrial volume. Mildly increased left atrial area. Mitral Valve Structurally normal mitral valve. Mild mitral annular calcification. Trace to mild mitral regurgitation. Aortic Valve Trileaflet aortic valve. No aortic stenosis. Trace aortic regurgitation. Tricuspid Valve Structurally normal tricuspid valve. Mild tricuspid regurgitation. Pulmonic Valve Structurally normal pulmonic valve. Pericardium No pericardial effusion. Aorta Normal size aortic root and proximal ascending aorta. CONCLUSIONS Left ventricular hypertrophy with preserved systolic function Previewed by: Dr. Lopez Kimbrough MD (Electronically Signed) Final Date: 02 April 2023 13:14
[2023-04-02 14:51] LABS: Chol/HDL Ratio 5.27 Ratio; LDL Cholesterol,Calculated 172.8 mg/dL (0.0-131.0)
[2023-04-02] MEDS: ATORVASTATIN 80 MG TAB PO SCH (20:12)
[2023-04-02] MEDS: hydrALAZINE HCL 20 MG/ML 1 ML VIAL IVP PRN (20:12)
[2023-04-02] MEDS ORDERED: BACLOFEN 10 MG TAB PO PRN (21:48)
[2023-04-02] MEDS ORDERED: LORazepam 0.5 MG TAB PO PRN (22:14)
[2023-04-02] MEDS: lisinopriL 5 MG TAB PO SCH (22:19)
--- NOTE | 2023-04-03 00:21 | CT ---
EXAM: CT Head Without Intravenous Contrast CLINICAL HISTORY: ITS.REASON CT Reason: acute decreased sensation LUE TECHNIQUE: Axial computed tomography images of the head/brain without intravenous contrast. CTDI is 15.64 mGy and DLP is 1232.1 mGy-cm. This CT exam was performed using one or more of the following dose reduction techniques: automated exposure control, adjustment of the mA and/or kV according to patient size, and/or use of iterative reconstruction technique. COMPARISON: CT Head dated 04/01/23 FINDINGS: Brain: Mild volume loss with prominent ventricles and sulci. Periventricular white matter hypoattenuation likely reflects chronic small vessel disease. No hemorrhage. Ventricles: See above. Bones/joints: Unremarkable. No acute fracture. Soft tissues: Unremarkable. Sinuses: Unremarkable as visualized. No acute sinusitis. Mastoid air cells: Unremarkable as visualized. No mastoid effusion. IMPRESSION: No acute findings in the head/brain.
[2023-04-03] MEDS: hydrALAZINE HCL 20 MG/ML 1 ML VIAL IVP PRN (03:42)
[2023-04-03] MEDS: SODIUM CHLORIDE 0.9% 1,000 ML IV SCH (04:17)
[2023-04-03 07:43] LABS: HCT 47.2 % (39.0-53.0); MCH 31.8 pg (25.0-35.0); MCHC 33.8 g/dL (31.0-37.0); MCV 94.2 fL (80.0-100.0); Mean Platelet Volume 6.9; Platelet Count 316 k/uL (150-450); RBC 5.02 m/uL (4.30-5.90); RDW 12.4 % (11.5-15.5); WBC 9.7 k/uL (3.8-10.6)
[2023-04-03 07:56] LABS: ALT 31 U/L (4-49); AST 25 U/L (17-59); African American GFR (CKD) >90 (>60 ml/min/1.73 sqM); Albumin 4.4 g/dL (3.5-5.0); Alkaline Phosphatase 42 U/L (38-126); Anion Gap 9 mmol/L; Blood Urea Nitrogen 12 mg/dL (9-20); Calcium 9.3 mg/dL (8.4-10.2); Carbon Dioxide 21 mmol/L (22-30); Chloride 106 mmol/L (98-107); Glucose 120 mg/dL (74-99); Non-African American GFR(CKD) >90 (>60 ml/min/1.73 sqM); Potassium 4.1 mmol/L (3.5-5.1); Sodium 136 mmol/L (137-145); Total Bilirubin 0.9 mg/dL (0.2-1.3); Total Protein 7.3 g/dL (6.3-8.2)
[2023-04-03] MEDS: CLOPIDOGREL 75 MG TAB PO SCH (08:14)
[2023-04-03] MEDS: ASPIRIN 325 MG TAB PO SCH (08:14)
[2023-04-03] MEDS: THIAMINE 100 MG TAB PO SCH (08:14)
[2023-04-03] MEDS: lisinopriL 5 MG TAB PO SCH (08:14)
[2023-04-03] MEDS: HEPARIN SODIUM,PORCINE 5,000 UNIT/ML 1 ML VIAL SQ SCH ×2 (08:15→20:08)
[2023-04-03] MEDS ORDERED: LORazepam 2 MG/ML INJ IV STA (10:32)
--- NOTE | 2023-04-03 11:36 | P.PN ---
Subjective Progress Note Date: 04/03/23 Patient was initially seen by Dr. Robert Cyr. Please refer to his note for details. Patient is a 57-year-old right-handed male came to the hospital on 04/01/2023 at 10:13 AM for left-sided weakness. His symptoms started the night prior at 7 PM when he noticed some dragging and heavy feeling with the left leg. He thought it was his sciatic nerve acting up, therefore continued therapy. However in the middle of the night, he noticed left arm weakness. He was not a candidate for TPA, as symptoms have been present for over 12 hours. Patient does drink alcohol, and also sometimes uses marijuana gummies. Objective - Vital Signs Vital signs: Vital Signs Temp 98.1 F 04/03/23 08:51 Pulse 96 04/03/23 08:51 Resp 20 04/03/23 08:51 BP 135/76 04/03/23 08:51 Pulse Ox 97 04/03/23 08:51 FiO2 Intake & Output 04/02/23 04/03/23 04/03/23 18:59 06:59 18:59 Intake Total 458 10 Output Total 550 300 Balance -92 -290 Intake: IV 10 Invasive Line 1 10 Oral 458 Output: Urine 550 300 Other: Voiding Method Urinal Urinal Urinal # Voids 1 # Bowel Movements 1 - Exam Patient is a middle aged male, in no acute distress. Patient is alert awake oriented to time place and person. Speech and language functions are normal. Patient can name and repeat very well. No aphasia or dysarthria. Attention, concentration and fund of knowledge is adequate. On cranial nerve examination, pupils are equal, round and reacting to light, visual davis are full on confrontation, with no neglect on double simultaneous stimulation. Extraocular muscles are intact with no nystagmus. Patient has slight flattening of the left nasolabial fold. His tongue protrudes to the midline. Palatal elevation and sensation normal, hearing and shoulder shrug normal, facial sensation normal. On muscle strength testing, there is left pronator drift and the left arm hits the bed. The strength is (right/left) deltoid 5/2, biceps 5/3 to 3-, physical therapist assistant 5/4-, hip flexion 5/4, ankle dorsiflexion 5/4-. Deep tendon reflexes revealed positive Babinski only on the left. Sensory to touch is equal with no neglect on double simultaneous stimulation. Cerebellar function showed patient cannot perform [id number] testing on the left side. No ataxia for [id number] testing on either side. Tone and bulk of muscles normal. Gait deferred.. On general examination, there is no carotid bruit or murmur, S1-S2 audible. Chest is clear on consultation. Abdomen is soft nontender. No organomegaly, bowel sounds present. Peripheral pulses are present. No edema. - Labs CBC & Chem 7: 04/03/23 07:32 04/03/23 07:32 Labs: Abnormal Lab Results - Last 24 Hours (Table) 04/02/23 04/03/23 Range/Units 08:01 07:32 Sodium 136 L (137-145) mmol/L Carbon Dioxide 21 L (22-30) mmol/L Glucose 120 H (74-99) mg/dL Triglycerides 250.00 H (0.00-149.00) mg/dL Cholesterol 275.00 H (0.00-200.00) mg/dL LDL Cholesterol, Calc 172.8 H (0.0-131.0) mg/dL VLDL Cholesterol, Calc 50.00 H (5.00-40.00) mg/dL Assessment and Plan Assessment: This is a 57-year-old gentleman with history of hypertension and states his blood pressure runs in the 140s who presents them are department on 04/01/2023 at 10:13 AM because of left-sided weakness and numbness that began on 03/31/2023 around 7 PM. He felt his symptoms were mild at night yesterday but was worse when he woke up today. Acute left-sided weakness with numbness and had NIH stroke scale of a 6 in the ED is likely due to acute ischemic stroke. Escalated hypertension and the blood pressure has been in the 200s over 90s to 100 History of hypertension Hyperlipidemia Alcohol use and he drinks 6 pack every other day Sometimes uses marijuana gummies Plan: Patient believes he got slightly worse last night. He states his blood pressure went up, his left leg was shaking and after that his left side has got worse. Suggest keeping blood pressure around 160-180 systolic. Avoid hypotension. Continue ASA 325mg daily and Plavix 75mg daily (was not on antiplatelets prior to this). Continue Lipitor 80 mg daily at bedtime for secondary stroke prophylaxis. Pending MR the brain, 2-D echo revealed left ventricular hypertrophy, with preserved systolic function with EF 55-60%. Mildly increased left atrial size. No embolic source. Hemoglobin A1c 5.7. Lipid panel with cholesterol 275, LDL 172, HDL 52 and triglycerides 250. Contin ue high intensity statins. Lipitor [address] angiography the head and neck was reported as no significant arterial disease of the head and neck. Repeat CT of the head performed last night reported no acute findings in the head/brain. On my review, it appears there is a possible subacute hypodensity in the right basal ganglia/posterior external capsule. Continue Neuro checks Cardiac monitoring PT OT and CONCRETE PILE DRIVER OPERATOR are consulted Please avoid aggressive management of the hypertension. Placed the patient on thiamine 100 mg daily because of his alcohol use and he drinks 6 packs every other day and he was notified to decrease the consumption when he does drink on that particular day We'll defer the rest of the medical management to primary team For DVT prophylaxis On subcu heparin 5000 Hz every 12 hours Addendum: MRI of the brain was done, which revealed acute/subacute CVA involving the right stanton radiata of the frontal lobe. This does extend into the basal ganglia. Nonspecific white matter changes, likely secondary to small vessel ischemic disease. I personally reviewed MRI, agree with the findings. Consider inpatient rehabilitation. Discussed with patient's and patient's son in detail, review MRI on the computer.
--- NOTE | 2023-04-03 13:35 | MR ---
EXAMINATION TYPE: MR brain wo con DATE OF EXAM: 04/03/2023 1:06 PM CLINICAL INDICATION:Male, 57 years old with history of worsening neuro deficit,stroke suspected COMPARISON: 04/02/2023 . TECHNIQUE: Multi planar, multi sequence imaging was performed through the brain including: T1, T2, In version recovery, Diffusion weighted imaging, and gradient echo imaging. No gadolinium was given. FINDINGS: Restricted diffusion within the right stanton radiata of the frontal lobe with extension into the basa l ganglia. Mild cerebral atrophy and proportional dilation of the ventricular systems. Scattered foci of high T2 signal intensity are seen within the periventricular white matter. Midline structures omar w no abnormality. The susceptibility weighted images and straight punctate site of blooming artifact within the right thalamus compatible with microhemorrhage. The bone marrow signal is within normal l imits. Paranasal sinuses and mastoid air cells: Mild scattered paranasal sinus disease. Visualized orbits: Orbital contents are intact. IMPRESSION: 1. Acute/subacute CVA involving the right stanton radiata of the frontal lobe. This does extend into t he basal ganglia. 2. Nonspecific white matter changes, likely secondary to small vessel ischemic disease.
--- NOTE | 2023-04-03 13:56 | P.PN ---
Subjective Progress Note Date: 04/03/23 patient is a 57-year-old gentleman with past medical significant for hypertension and apparent the ER because of left-sided weakness that started yesterday. Patient stated that he was all right yesterday evening at around 9 PM started noticing that his left arm and leg were numb and also weaker. Denied any slurred speech. There was no complaint of any facial droop. No complain of any recent fall. Patient initially did not pay any attention to it as he has history of sciatica and thought it was secondary to that. Patient went to sleep and woke up this morning with persistent weakness of left side. Because of this persistent weakness, patient came to the ER Initial lab work done in the ER showed WBC 7.9, hemoglobin 15.3, platelet count 313, sodium 138, potassium 4.3, BUN 14, glucose 118, AST 30 ALT 36 troponin 0.012 EKG done in the ER showed heart rate of 78, normal sinus rhythm, no ST segment elevation or T-wave inversion noticeable CT brain negative for acute cranial process CTA head and neck negative for any significant stenosis of head and neck circulation Chest x-ray done in the ER for any acute cardiopulmonary process ER physician talked to the on-call interventional neurologist and was decided the patient was not a candidate for TPA, they recommended MRI and medical management Patient admitted to medicine service 04/02. Patient seen and examined. No acute issues overnight. Still has weakness of left side. Denies any slurred speech 04/03. Patient seen and examined. CT brain done on 04/02 negative for acute intracranial process. 2-D echo done showed left ventricular Hypertrophy with preserved systolic function. lipid panel showed triglyceride 250, cholesterol 275, LDL 172. started on lisinopril 5 mg daily. REVIEW OF SYSTEMS: CONSTITUTIONAL: No fever, no malaise,. CARDIOVASCULAR: No chest pain, no palpitations, no syncope. PULMONARY: No shortness of breath, no cough, GASTROINTESTINAL: No diarrhea, no nausea, no vomiting, no abdominal pain. NEUROLOGICAL: No headaches, no weakness, PHYSICAL EXAMINATION: GENERAL: The patient is alert and oriented x3, not in any acute distress. Well developed, well nourished. HEENT: Pupils are round and equally reacting to light. EOMI. No scleral icterus. No conjunctival pallor. Normocephalic, atraumatic. No pharyngeal erythema. No thyromegaly. CARDIOVASCULAR: S1 and S2 present. No murmurs, rubs, or gallops. PULMONARY: Chest is clear to auscultation, no wheezing or crackles. ABDOMEN: Soft, nontender, nondistended, normoactive bowel sounds. No palpable organomegaly. MUSCULOSKELETAL: No joint swelling or deformity. EXTREMITIES: No cyanosis, clubbing, or pedal edema. NEUROLOGICAL:. Cranial nerves II through XII intact Muscle strength 4/5 in left upper and lower extremity, muscle strength 5 x 5 in right side. Decreased sensation to touch noticeable in left arm and leg. Plantars are downgoing bilaterally SKIN: No rashes. Assessment and plan Acute CVA Hypertension Monitor vital signs Monitor CBC Monitor CMP Continue telemetry monitoring Continue neurochecks HbA1c level is 5.7 lipid panel showed triglyceride 250, cholesterol 275, LDL 172 Continue aspirin and Lipitor, neurology added Plavix 2-D echo done showed left ventricular Hypertrophy with preserved systolic function Ordered MRI brain Follow-up on neurology recommendations Follow-up on PT and OT recommendations Labs and medication were reviewed.. Continue same treatment. Continue with symptomatic treatment. Resume home medication. Monitor labs and vitals. DVT and GI prophylaxis. Further recommendations as per clinical course of the patient Dictation was produced using [employer] dictation software. please excuse any grammatical, word or spelling errors. Objective - Vital Signs Vital signs: Vital Signs Temp 98.1 F 04/03/23 08:51 Pulse 96 04/03/23 08:51 Resp 20 04/03/23 08:51 BP 135/76 04/03/23 08:51 Pulse Ox 97 04/03/23 08:51 FiO2 Intake & Output 04/02/23 04/03/23 04/03/23 18:59 06:59 18:59 Intake Total 458 10 Output Total 550 300 Balance -92 -290 Intake: IV 10 Invasive Line 1 10 Oral 458 Output: Urine 550 300 Other: Voiding Method Urinal Urinal Urinal # Voids 1 # Bowel Movements 1 - Labs CBC & Chem 7: 04/03/23 07:32 04/03/23 07:32 Labs: Abnormal Lab Results - Last 24 Hours (Table) 04/02/23 04/03/23 Range/Units 08:01 07:32 Sodium 136 L (137-145) mmol/L Carbon Dioxide 21 L (22-30) mmol/L Glucose 120 H (74-99) mg/dL Triglycerides 250.00 H (0.00-149.00) mg/dL Cholesterol 275.00 H (0.00-200.00) mg/dL LDL Cholesterol, Calc 172.8 H (0.0-131.0) mg/dL VLDL Cholesterol, Calc 50.00 H (5.00-40.00) mg/dL
--- NOTE | 2023-04-03 15:20 | P.CONS ---
History of Present Illness - Reason for Consult Consult date: 04/03/23 rehab recommendations - Chief Complaint CVA, left sided weakness - History of Present Illness Mr Ralph Peacock is a 57 y/o right handed, male who lives in a bilevel home with 7 steps with his . He was independent with mobility and ADLs prior to admission. 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 He has 5 children. Patient presented to the hospital on 04/01/23 with left sided weakness. His symptoms started the night prior, felt his left leg was heavy and ahd to drag it. He originally thought it was his sciatic nerve acting up. He was determined not to be a tPA candidate. CT head negative for acute intracranial process. CTA head and neck negative for significant stenosis. Neurology was consulted. He had a 2D echo revealing left ventricular hypertrophy with EF 55-60%. MRI brain omar wed Acute/Subacute CVA involving the right stanton radiata of the frontal lobe with extension into the basal ganglia. PM&R consulted for rehab recommendations. Patient was seen by therapies; mod assist with bathing and UB dressing, max assist with LB dressing, grooming min assist, Mod I with eating, toielting max assist, gait 20 ft CONDITIONER TENDER with 2 people for safety, min assist with bed mobility, slums, heart healthy diet. Today thinks his left UE is weaker than it had been. He is tired as he was medicated for the MRI, has numbness in the left UE, left sided weakness. Denies NEGRON, CP, SOB, abdominal pain. Last BM yesterday, denies bladder issues. Review of Systems reviewed, negative unless stated above in HPI Past Medical History Past Medical History: Hyperlipidemia, Hypertension, Osteoarthritis (OA) History of Any Multi-Drug Resistant Organisms: None Reported Past Surgical History: Joint Replacement Additional Past Surgical History / Comment(s): 9 teeth pulled under anesthesia Past Anesthesia/Blood Transfusion Reactions: No Reported Reaction Past Psychological History: No Psychological Hx Reported Past Alcohol Use History: Daily, Heavy Past Drug Use History: Marijuana - Past Family History Father Family Medical History: Cancer Medications and Allergies Home Medications Medication Instructions Recorded Confirmed Type amLODIPine [Norvasc] 2.5 mg PO DAILY 04/01/23 04/01/23 History lisinopriL 30 mg PO DAILY 04/01/23 04/01/23 History Allergies Allergy/AdvReac Type Severity Reaction Status Date / Time No Known Allergies Allergy Verified 04/01/23 12:57 Physical Exam Vitals: Vital Signs Temp Pulse Pulse Resp BP BP Pulse Ox 04/03/23 11:05 98.5 F 99 18 164/95 95 04/03/23 08:51 98.1 F 96 20 135/76 97 04/03/23 07:55 98.1 F 96 17 135/76 96 04/03/23 03:45 98.1 F 88 18 186/94 97 04/02/23 23:49 98.0 F 62 18 177/92 96 04/02/23 21:30 18 187/98 97 04/02/23 21:15 98.0 F 20 214/107 92 L 04/02/23 20:00 98.1 F 76 18 185/120 97 04/02/23 16:53 175/99 04/02/23 16:00 98.3 F 68 17 194/94 97 Intake and Output 04/03/23 04/03/23 04/03/23 06:59 14:59 22:59 Output Total 300 600 Balance -300 -600 Output: Urine 300 600 Other: Voiding Method Urinal Urinal # Voids 1 2 # Bowel Movements 1 General: WDWN, male, NAD Head: Normocephalic, atraumatic. Eyes: Symmetric Ears: Symmetric. Hearing within normal limits. Mouth: Clear. Neck: Supple. Cardiac: Regular rate and rhythm. Calves supple, non tender, no edema Lungs: Breathing comfortably on RA. Chest symmetric. Abdomen: Soft, nontender. Extremities: Arthritic changes consistent with age. Neurological: Alert and oriented x4. Follows 3 step commands. Speech is clear and fluent without paraphasic errors. Repeats no ifs ands or buts, names 3/3 objects. Cranial nerves: CN II-XII: intact EXCEPT left facial weakness. Sensation: Intact and symmetrical limbs EXCEPT decreased left forearm/hand Musculoskeletal: ROM WFL EXCEPT: decreased left shoulder, wrist. DTR symmetric UE/LE, equivocal left babinski. Finger to nose, heel to lilly intact on right; dysmetria with left heel to lilly, unable to do left finger to nose. MMT UE Sh Abd EE EF FABD WE HG Right 5 5 5 5 5 5 Left <3 4- 4- 2 2 2 MMT LE HF KE DF EHL Right 5 5 5 5 Left 4+ 4+ 4+ 4+ Skin: Skin intact where visible to head, neck, and bilateral upper and lower extremities Psych: Calm, cooperative Results CBC & Chem 7: 04/03/23 07:32 04/03/23 07:32 Labs: Abnormal Lab Results - Last 24 Hours (Table) 04/03/23 Range/Units 07:32 Sodium 136 L (137-145) mmol/L Carbon Dioxide 21 L (22-30) mmol/L Glucose 120 H (74-99) mg/dL Assessment and Plan Assessment: # left hemiparesis secondary to Acute/Subacute CVA involving the right stanton radiata of the frontal lobe with extension into the basal ganglia -ASA 325 mg QD, Plavix, statin -PT/OT, MASH FILTER CLOTH CHANGER signed off # Impaired gait and ADLs secondary to CVA # Escalated HTN, on admission BP 205/91 # HTN -suggested keeping BP around 160-180 systolic #HLD # ETOH -drinks a 6 pack every other day # Pain Management -Tylenol 650 mg Q 6 hrs prn, Baclofen 5 mg QD prn - no pain issues at this time # DVT Proph -Heparin SQ # Bowel/ Bladder: Nursing to monitor and report concerns if any. # Diet-cardiac # Skin/wound: Skin/Wound care to follow as needed # Your medical dx and mgt Goals: Modified Independent mobility and ADLS both basic and advanced; increased functional mobility/strength; increased balance, safety, endurance. Improvement in medical issues through your care. Barriers: left hemiparesis, endurance Discharge recommendation: Recommending IPR for continued rehab, patient will need insurance authorization. Patient seen and examined in coordination with Dr. Lerma, consult remotely prepped by Ivonne Schwab PA-C
[2023-04-03] MEDS: ATORVASTATIN 80 MG TAB PO SCH (20:09)
[2023-04-04] MEDS: THIAMINE 100 MG TAB PO SCH (08:58)
[2023-04-04] MEDS: HEPARIN SODIUM,PORCINE 5,000 UNIT/ML 1 ML VIAL SQ SCH ×2 (08:58→20:15)
[2023-04-04] MEDS: CLOPIDOGREL 75 MG TAB PO SCH (08:58)
[2023-04-04] MEDS: lisinopriL 5 MG TAB PO SCH (08:58)
[2023-04-04] MEDS: ASPIRIN 325 MG TAB PO SCH (08:58)
[2023-04-04] MEDS: amLODIPine 2.5 MG TAB PO SCH (13:18)
--- NOTE | 2023-04-04 13:27 | P.PN ---
Subjective Progress Note Date: 04/04/23 patient is a 57-year-old gentleman with past medical significant for hypertension and apparent the ER because of left-sided weakness that started yesterday. Patient stated that he was all right yesterday evening at around 9 PM started noticing that his left arm and leg were numb and also weaker. Denied any slurred speech. There was no complaint of any facial droop. No complain of any recent fall. Patient initially did not pay any attention to it as he has history of sciatica and thought it was secondary to that. Patient went to sleep and woke up this morning with persistent weakness of left side. Because of this persistent weakness, patient came to the ER Initial lab work done in the ER showed WBC 7.9, hemoglobin 15.3, platelet count 313, sodium 138, potassium 4.3, BUN 14, glucose 118, AST 30 ALT 36 troponin 0.012 EKG done in the ER showed heart rate of 78, normal sinus rhythm, no ST segment elevation or T-wave inversion noticeable CT brain negative for acute cranial process CTA head and neck negative for any significant stenosis of head and neck circulation Chest x-ray done in the ER for any acute cardiopulmonary process ER physician talked to the on-call interventional neurologist and was decided the patient was not a candidate for TPA, they recommended MRI and medical management Patient admitted to medicine service 04/02. Patient seen and examined. No acute issues overnight. Still has weakness of left side. Denies any slurred speech 04/03. Patient seen and examined. CT brain done on 04/02 negative for acute intracranial process. 2-D echo done showed left ventricular Hypertrophy with preserved systolic function. lipid panel showed triglyceride 250, cholesterol 275, LDL 172. started on lisinopril 5 mg daily. 04/04. Patient seen and examined. MRI done showed acute/subacute CVA involving the right stanton radiata frontal lobe. Still has weakness of left upper and lower extremity. Discussed with him getting therapy, he is agreeable to go to inpatient rehab REVIEW OF SYSTEMS: CONSTITUTIONAL: No fever, no malaise,. CARDIOVASCULAR: No chest pain, no palpitations, no syncope. PULMONARY: No shortness of breath, no cough, GASTROINTESTINAL: No diarrhea, no nausea, no vomiting, no abdominal pain. NEUROLOGICAL: No headaches, no weakness, PHYSICAL EXAMINATION: GENERAL: The patient is alert and oriented x3, not in any acute distress. Well developed, well nourished. HEENT: Pupils are round and equally reacting to light. EOMI. No scleral icterus. No conjunctival pallor. Normocephalic, atraumatic. No pharyngeal erythema. No thyromegaly. CARDIOVASCULAR: S1 and S2 present. No murmurs, rubs, or gallops. PULMONARY: Chest is clear to auscultation, no wheezing or crackles. ABDOMEN: Soft, nontender, nondistended, normoactive bowel sounds. No palpable organomegaly. MUSCULOSKELETAL: No joint swelling or deformity. EXTREMITIES: No cyanosis, clubbing, or pedal edema. NEUROLOGICAL:. Cranial nerves II through XII intact Muscle strength 4/5 in left upper and lower extremity, muscle strength 5 x 5 in right side. Decreased sensation to touch noticeable in left arm and leg. Plantars are downgoing bilaterally SKIN: No rashes. Assessment and plan Acute CVA Hypertension Monitor vital signs Monitor CBC Monitor CMP Continue telemetry monitoring Continue neurochecks HbA1c level is 5.7 lipid panel showed triglyceride 250, cholesterol 275, LDL 172 Continue aspirin and Lipitor, Plavix Resume home dose of Norvasc, increase lisinopril to 20 mg daily 2-D echo done showed left ventricular Hypertrophy with preserved systolic function MRI done showed acute/subacute CVA involving the right stanton radiata frontal lobe Follow-up on neurology recommendations PT and OT recommended IPR Labs and medication were reviewed.. Continue same treatment. Continue with symptomatic treatment. Resume home medication. Monitor labs and vitals. DVT and GI prophylaxis. Further recommendations as per clinical course of the patient Dictation was produced using [employer] dictation software. please excuse any grammatical, word or spelling errors. Objective - Vital Signs Vital signs: Vital Signs Temp 98.2 F 04/04/23 08:20 Pulse 85 04/04/23 08:20 Resp 17 04/04/23 08:20 BP 172/83 04/04/23 08:20 Pulse Ox 98 04/04/23 08:20 FiO2 Intake & Output 04/03/23 04/04/23 04/04/23 18:59 06:59 18:59 Intake Total 118 Output Total 600 Balance -482 Intake: Oral 118 Output: Urine 600 Other: Voiding Method Urinal Urinal Urinal # Voids 2 2 - Labs CBC & Chem 7: 04/03/23 07:32 04/03/23 07:32
--- NOTE | 2023-04-04 16:47 | P.PN ---
Subjective Progress Note Date: 04/04/23 04/04/2023: Patient was seen for a follow-up. Denies any new neurological symptoms. Patient states he walked with a physical therapist in the hallway and was quite well balanced. The therapist was next to him. Did not use any assistive device. Patient's blood pressure is better controlled. He has been started on low-dose Norvasc 2.5 mg. Denies any new neurological symptoms. Patient is able to lift his arm much better, but still a significant problem with extending the fingers, and spreading the fingers. 04/03/2023: Patient was initially seen by Dr. Robert Cyr. Please refer to his note for details. Patient is a 57-year-old right-handed male came to the hospital on 04/01/2023 at 10:13 AM for left-sided weakness. His symptoms started the night prior at 7 PM when he noticed some dragging and heavy feeling with the left leg. He thought it was his sciatic nerve acting up, therefore continued therapy. However in the middle of the night, he noticed left arm weakness. He was not a candidate for TPA, as symptoms have been present for over 12 hours. Patient does drink alcohol, and also sometimes uses marijuana gummies. Objective - Vital Signs Vital signs: Vital Signs Temp 97.8 F 04/04/23 15:28 Pulse 85 04/04/23 15:28 Resp 17 04/04/23 15:28 BP 144/96 04/04/23 15:28 Pulse Ox 97 04/04/23 15:28 FiO2 Intake & Output 04/03/23 04/04/23 04/04/23 18:59 06:59 18:59 Intake Total 118 180 Output Total 600 800 Balance -482 -620 Intake: Oral 118 180 Output: Urine 600 800 Other: Voiding Method Urinal Urinal Urinal # Voids 2 2 2 - Exam Patient is a middle aged male, in no acute distress. Patient is alert awake oriented to time place and person. Speech and language functions are normal. Patient can name and repeat very well. No aphasia or dysarthria. Attention, concentration and fund of knowledge is adequate. On cranial nerve examination, pupils are equal, round and reacting to light, visual davis are full on confrontation, with no neglect on double simultaneous stimulation. Extraocular muscles are intact with no nystagmus. Patient has slight flattening of the left nasolabial fold. His tongue protrudes to the midline. Palatal elevation and sensation normal, hearing and shoulder shrug normal, facial sensation normal. On muscle strength testing, there is left pronator drift and the left arm hits the bed. The strength is (right/left) deltoid 5/4-, biceps 5/3+, anesthesia attending 5/4, finger extension 5/0 finger abduction 5/0, hip flexion 5/4+, ankle dorsiflexion 5/4+. Deep tendon reflexes revealed positive Babinski only on the left. Sensory to touch is equal with no neglect on double simultaneous stimulation. Cerebellar function showed patient cannot perform [id number] testing on the left side. No ataxia for [id number] testing on either side. Tone and bulk of muscles normal. Gait deferred.. On general examination, there is no carotid bruit or murmur, S1-S2 audible. Chest is clear on consultation. Abdomen is soft nontender. No organomegaly, bowel sounds present. Peripheral pulses are present. No edema. - Labs CBC & Chem 7: 04/03/23 07:32 04/03/23 07:32 Assessment and Plan Assessment: This is a 57-year-old gentleman with history of hypertension and states his blood pressure runs in the 140s who presents them are department on 04/01/2023 at 10:13 AM because of left-sided weakness and numbness that began on 03/31/2023 around 7 PM. He felt his symptoms were mild at night yesterday but was worse when he woke up today. Acute left-sided weakness with numbness and had NIH stroke scale of a 6 in the ED is likely due to acute ischemic stroke. Escalated hypertension and the blood pressure has been in the 200s over 90s to 100 History of hypertension Hyperlipidemia Alcohol use and he drinks 6 pack every other day Sometimes uses marijuana gummies Plan: Patient's neurological examination has improved. His left arm and left leg both are improved. Continue ASA 325mg daily and Plavix 75mg daily (was not on antiplatelets prior to this). Recommend dual antiplatelet medications for 4 weeks, then stop Plavix and continue aspirin 325 mg indefinitely. Start Pepcid 20 mg twice a day for gastric ulcer prophylaxis while patient is on DAPT. MRI of the brain was done, which revealed acute/subacute CVA involving the right stanton radiata of the frontal lobe. This does extend into the basal ganglia. Nonspecific white matter changes, likely secondary to small vessel ischemic disease. I personally reviewed MRI, agree with the findings. 2-D echo revealed left ventricular hypertrophy, with preserved systolic function with EF 55-60%. Mildly increased left atrial size. No embolic source. Hemoglobin A1c 5.7. Lipid panel with cholesterol 275, LDL 172, HDL 52 and triglycerides 250. Continue high intensity statins. Lipitor [address] angiography the head and neck was reported as no significant arterial disease of the head and neck. Continue Neuro checks Cardiac monitoring PT OT and OIL EXPELLER are consulted Please avoid aggressive management of the hypertension. Placed the patient on thiamine 100 mg daily because of his alcohol use and he drinks 6 packs every other day and he was notified to decrease the consumption when he does drink on that particular day We'll defer the rest of the medical management to primary team For DVT prophylaxis On subcu heparin 5000 Hz every 12 hours Discussed with patient's son in detail. Patient accepted to inpatient rehab, awaiting insurance authorization. Neurologically clear. Recommend follow-up with neurologist outpatient in 2-3 weeks.
[2023-04-04] MEDS: ATORVASTATIN 80 MG TAB PO SCH (20:14)
[2023-04-04] MEDS: FAMOTIDINE 20 MG TAB PO SCH (20:15)
[2023-04-05] MEDS ORDERED: lisinopriL 20 MG TAB PO SCH (09:00)
[2023-04-05] MEDS: HEPARIN SODIUM,PORCINE 5,000 UNIT/ML 1 ML VIAL SQ SCH (09:08)
[2023-04-05] MEDS: THIAMINE 100 MG TAB PO SCH (09:09)
[2023-04-05] MEDS: FAMOTIDINE 20 MG TAB PO SCH (09:09)
[2023-04-05] MEDS: CLOPIDOGREL 75 MG TAB PO SCH (09:09)
[2023-04-05] MEDS: ASPIRIN 325 MG TAB PO SCH (09:09)
[2023-04-05] MEDS: amLODIPine 2.5 MG TAB PO SCH (09:09)
[2023-04-05 10:21] VITALS: TEMP 98.3
--- NOTE | 2023-04-05 11:11 | P.DS ---
Providers Date of admission: 04/01/23 12:22 Expected date of discharge: 04/05/23 Attending physician: Fermin Mancini Consults: 04/01/23 12:23 Consult Physician Routine Consulting Provider: Robert Cyr Consult Reason/Comments: CVA Do you want consulting provider notified?: Yes 04/03/23 11:38 Consult Physician Routine Consulting Provider: Ace Kumari Consult Reason/Comments: eval for IPR Do you want consulting provider notified?: Yes Primary care physician: Jonathan Araiza Hospital Course: Discharge diagnosis Acute CVA. MRI showed acute/subacute CVA involving right stanton radiata frontal lobe Hypertension. Uncontrolled. Hospital course Patient is a 57-year-old gentleman with past medical significant for hypertension and apparent the ER because of left-sided weakness that started yesterday. Patient stated that he was all right yesterday evening at around 9 PM started noticing that his left arm and leg were numb and also weaker. Denied any slurred speech. There was no complaint of any facial droop. No complain of any recent fall. Patient initially did not pay any attention to it as he has history of sciatica and thought it was secondary to that. Patient went to sleep and woke up this morning with persistent weakness of left side. Because of this persistent weakness, patient came to the ER Initial lab work done in the ER showed WBC 7.9, hemoglobin 15.3, platelet count 313, sodium 138, potassium 4.3, BUN 14, glucose 118, AST 30 ALT 36 troponin 0.012 EKG done in the ER showed heart rate of 78, normal sinus rhythm, no ST segment elevation or T-wave inversion noticeable CT brain negative for acute cranial process CTA head and neck negative for any significant stenosis of head and neck circulation Chest x-ray done in the ER for any acute cardiopulmonary process ER physician talked to the on-call interventional neurologist and was decided the patient was not a candidate for TPA, they recommended MRI and medical management Patient admitted to medicine service 04/02. Patient seen and examined. No acute issues overnight. Still has weakness of left side. Denies any slurred speech 04/03. Patient seen and examined. CT brain done on 04/02 negative for acute intracranial process. 2-D echo done showed left ventricular Hypertrophy with preserved systolic function. lipid panel showed triglyceride 250, cholesterol 275, LDL 172. started on lisinopril 5 mg daily. 04/04. Patient seen and examined. MRI done showed acute/subacute CVA involving the right stanton radiata frontal lobe. Still has weakness of left upper and lower extremity. Discussed with him getting therapy, he is agreeable to go to inpatient rehab 04/05/2023 Patient is currently sitting in a chair. Awake alert and oriented 3. Able to tolerate oral diet. Still having left upper and lower extremity weakness and feels heaviness in the hand. No complains of spasms. No headache or dizziness or lightheadedness. No palpitations. Patient has been afebrile. No other a cute overnight issues. Patient is being discharged to inpatient rehab. Continue with both aspirin and Plavix for 4 weeks and followed by aspirin indefinitely. Continue with statins. Continue with blood pressure medications. Laboratory data reviewed. 2-D echo done showed left ventricular Hypertrophy with preserved systolic function MRI done showed acute/subacute CVA involving the right stanton radiata frontal lobe PHYSICAL EXAMINATION: GENERAL: The patient is alert and oriented x3, not in any acute distress. Well developed, well nourished. HEENT: Pupils are round and equally reacting to light. EOMI. No scleral icterus. No conjunctival pallor. Normocephalic, atraumatic. No pharyngeal erythema. No thyromegaly. CARDIOVASCULAR: S1 and S2 present. No murmurs, rubs, or gallops. PULMONARY: Chest is clear to auscultation, no wheezing or crackles. ABDOMEN: Soft, nontender, nondistended, normoactive bowel sounds. No palpable organomegaly. MUSCULOSKELETAL: No joint swelling or deformity. EXTREMITIES: No cyanosis, clubbing, or pedal edema. NEUROLOGICAL:. Cranial nerves II through XII intact Muscle strength 4/5 in left upper and lower extremity, muscle strength 5 x 5 in right side. Decreased sensation to touch noticeable in left arm and leg. Plantars are downgoing bilaterally SKIN: No rashes. Vital Signs 04/05/23 04/05/23 03:43 09:10 Temperature 97.7 F 98.3 F Pulse Rate [ 82 86 Pulse Oximetery ] Respiratory 17 18 Rate Blood Pressure 144/79 174/84 [Right Arm] O2 Sat by Pulse 94 L 98 Oximetry Total time taken greater than 35 minutes including 18 minutes for counseling and coordination of care. Patient Condition at Discharge: Stable Plan - Discharge Summary New Discharge Prescriptions: New Famotidine [Pepcid] 20 mg PO BID 28 Days #56 tab Thiamine [Vitamin B-1] 100 mg PO DAILY #30 tab lisinopriL [Zestril] 20 mg PO BID #60 tab Aspirin 325 mg PO DAILY #30 tab Atorvastatin [Lipitor] 80 mg PO HS #30 tab Clopidogrel [Plavix] 75 mg PO DAILY #28 tab Continue amLODIPine [Norvasc] 2.5 mg PO DAILY Discontinued lisinopriL 30 mg PO DAILY Discharge Medication List amLODIPine [Norvasc] 2.5 mg PO DAILY 04/01/23 [History] Aspirin 325 mg PO DAILY #30 tab 04/05/23 [Rx] Atorvastatin [Lipitor] 80 mg PO HS #30 tab 04/05/23 [Rx] Clopidogrel [Plavix] 75 mg PO DAILY #28 tab 04/05/23 [Rx] Famotidine [Pepcid] 20 mg PO BID 28 Days #56 tab 04/05/23 [Rx] Thiamine [Vitamin B-1] 100 mg PO DAILY #30 tab 04/05/23 [Rx] lisinopriL [Zestril] 20 mg PO BID #60 tab 04/05/23 [Rx] Follow up Appointment(s)/Referral(s): [facility], [NON-STAFF] - Jonathan Araiza [Primary Care Provider] - 1-2 days Discharge/Stand Alone Forms: AA Meetings [facility], Outpatient Counseling, In Substance Abuse Facilities Discharge Disposition: TRANSFER TO SNF/ECF
[2023-04-05 12:20] VITALS: BP 142/97; PULSE 91; RESP 17
== END 2023-04-05 13:00 | DRG 45 ==
LOC: EC 10:13 → 3SCARD 12:22
PROVIDERS: ADMIT Hospitalist; ATTEND Hospitalist
DX: I63.9 Cerebral infarction, unspecified (principal); G81.94 Hemiplegia, unspecified affecting left nondominant side; I11.9 Hypertensive heart disease without heart failure; F10.10 Alcohol abuse, uncomplicated; R29.706 NIHSS score 6; E78.5 Hyperlipidemia, unspecified; M19.90 Unspecified osteoarthritis, unspecified site; R27.0 Ataxia, unspecified; M54.30 Sciatica, unspecified side; Y90.0 Blood alcohol level of less than 20 mg/100 ml; Z96.60 Presence of unspecified orthopedic joint implant; Z79.899 Other long term (current) drug therapy; Z28.310 Unvaccinated for COVID-19
CPT/HCPCS: 36415; 70450; 70496; 70498; 70551; 71046; 80053; 80061; 80306; 80320; 82550; 83036; 84443; 84484; 85025; 85027; 85610; 85730; 93005; 93306; 94760; 96361; 96372; 96375; 99285

== ENCOUNTER → 2023-10-26 | Outpatient (CLI) | payer OTHER ==
--- NOTE | 2023-10-27 13:05 | NM ---
EXAMINATION TYPE: NM hepatobiliary w EF DATE OF EXAM: 10/26/2023 COMPARISON: NONE CLINICAL INDICATION: Male, 58 years old with history of K82.8 OTHER SPECIFIED DISEASES OF GALLBLADDER ; TECHNIQUE: After the intravenous administration of 5.0 mCi Tc 99m Mebrofenin hepatobiliary scintigrap hy is performed. Immediate images post injection. FINDINGS: There is satisfactory initial accumulation of tracer by the liver. The gallbladder is visualized wit hin 4 minutes. The small bowel activity is noted after oral and intravenous administration after on e hour. At one hour 8 ounces of oral ensure plus is given to mimic CCK and gallbladder ejection frac tion is calculated at 59 %, in the normal range. IMPRESSION: No scintigraphic evidence for acute/chronic cholecystitis or biliary dyskinesia.
== END | disposition home or self-care (01) ==
LOC: RADNMMAIN 12:49
PROVIDERS: ATTEND Internal Medicine
DX: K82.8 Other specified diseases of gallbladder (principal)
CPT/HCPCS: 78226; A9537

== ENCOUNTER 2023-11-02 09:15 | Inpatient (IN) | payer OTHER ==
[2023-11-02] MEDS: HYDROmorphone 1 MG/ML 1 ML SYRINGE IVP STA ×2 (09:41→10:27)
[2023-11-02] MEDS: KETOROLAC 15 MG/ML 1 ML VIAL IVP STA (09:42)
[2023-11-02] MEDS: ONDANSETRON 4 MG/2 ML VIAL IVP STA ×2 (09:43→10:28)
[2023-11-02] MEDS: SODIUM CHLORIDE 0.9% 1,000 ML IV STA (09:44)
[2023-11-02] MEDS: SODIUM CHLORIDE 0.9% 500 ML 500 ML IV STA (09:44)
--- NOTE | 2023-11-02 09:50 | ED ---
General Adult HPI - General Chief complaint: Abdominal Pain Stated complaint: Stomach pain Time Seen by Provider: 11/02/23 09:20 Source: patient, family, RN notes reviewed, old records reviewed Mode of arrival: wheelchair Limitations: no limitations - History of Present Illness Initial comments: This is a 58-year-old male who presents to the emergency department complaining of left-sided abdominal pain that radiates to his back. Patient states it sta rted about 3 weeks ago and it has not improved. Patient states he was seen over at [facility] and they could not determine the source of his pain. Patient states the pain is so bad he cannot stop vomiting. Patient denies any fever or chills. Patient denies chest pain difficulty breathing shortness of breath. Patient denies any diarrhea. Patient states this occurred about 3 years ago and again no determination was made of a cause of the pain. - Related Data Home Medications Medication Instructions Recorded Confirmed amLODIPine [Norvasc] 2.5 mg PO DAILY 04/01/23 11/02/23 Aspirin EC [Ecotrin Low Dose] 81 mg PO DAILY 11/02/23 11/02/23 Ezetimibe [Zetia] 10 mg PO DAILY 11/02/23 11/02/23 HYDROcodone/APAP 5-325MG [[place] 1 tab PO Q12H PRN 11/02/23 11/02/23 5-325] Pregabalin [Lyrica] 150 mg PO BID 11/02/23 11/02/23 Rosuvastatin [Crestor] 20 mg PO HS 11/02/23 11/02/23 methocarbamoL [Robaxin-750] 750 mg PO BID 11/02/23 11/02/23 traMADol HCL 50 mg PO BID PRN 11/02/23 11/02/23 Previous Rx's Medication Instructions Recorded Clopidogrel [Plavix] 75 mg PO DAILY #28 tab 04/05/23 lisinopriL [Zestril] 20 mg PO BID #60 tab 04/05/23 Allergies Allergy/AdvReac Type Severity Reaction Status Date / Time No Known Allergies Allergy Verified 04/01/23 12:57 Review of Systems ROS Statement: Those systems with pertinent positive or pertinent negative responses have been documented in the HPI. ROS Other: All systems not noted in ROS Statement are negative. Past Medical History Past Medical History: CVA/TIA, Hyperlipidemia, Hypertension, Osteoarthritis (OA) History of Any Multi-Drug Resistant Organisms: None Reported Past Surgical History: Joint Replacement Additional Past Surgical History / Comment(s): 9 teeth pulled under anesthesia Past Anesthesia/Blood Transfusion Reactions: No Reported Reaction Past Psychological History: No Psychological Hx Reported Smoking Status: Never smoker Past Alcohol Use History: Daily, Heavy Past Drug Use History: Marijuana - Past Family History Father Family Medical History: Cancer General Exam - General Exam Comments Initial Comments: GENERAL: Patient is well-developed and well-nourished. Patient is nontoxic and well- hydrated and is in moderate distress. ENT: Neck is soft and supple. No significant lymphadenopathy is noted. Oropharynx is clear. Moist mucous membranes. Neck has full range of motion without eliciting any pain. EYES: The sclera were anicteric and conjunctiva were pink and moist. Extraocular movements were intact and pupils were equal round and reactive to light. Eyelids were unremarkable. PULMONARY: Unlabored respirations. Good breath sounds bilaterally. No audible rales rhonchi or wheezing was noted. CARDIOVASCULAR: There is a regular rate and rhythm without any murmurs gallops or rubs. ABDOMEN: Patient has tenderness to the left lower quadrant and has positive CVA tenderness SKIN: Skin is clear with no lesions or rashes and otherwise unremarkable. NEUROLOGIC: Patient is alert and oriented x3. Cranial nerves II through XII are grossly intact. Motor and sensory are also intact. Normal speech, volume and content. Symmetrical smile. MUSCULOSKELETAL: Normal extremities with adequate strength and full range of motion. Positive le ft CVA tenderness LYMPHATICS: No significant lymphadenopathy is noted PSYCHIATRIC: Normal psychiatric evaluation. Limitations: no limitations Course Vital Signs 11/02/23 11/02/23 11/02/23 09:17 09:47 10:29 Temperature 97 F L Pulse Rate 55 L 78 92 Respiratory 40 H 24 24 Rate Blood Pressure 230/120 157/77 176/71 O2 Sat by Pulse 98 100 Oximetry 11/02/23 11/02/23 11:25 11:32 Temperature Pulse Rate 95 Respiratory 20 Rate Blood Pressure 200/150 208/101 O2 Sat by Pulse 100 Oximetry Medical Decision Making - Medical Decision Making EKG is interpreted by myself but EKG shows a sinus rhythm with occasional PAC at 61 bpm parable 188 QRS 94 QT interval 394 QTc is 398. Patient's EKG shows no ST segment ovation or depression Was pt. sent in by a medical professional or institution (KIRBY Castillo, INSTRUCTOR OF NURSING, urgent care, hospital, or longterm...) When possible be specific @ -No Did you speak to anyone other than the patient for history (EMS, parent, family, police, friend...)? What history was obtained from this source @ -No Did you review nursing and triage notes (agree or disagree)? Why? @ -I reviewed and agree with nursing and triage notes Were old charts reviewed (outside hosp., previous admission, EMS record, old EKG, old radiological studies, urgent care reports/EKG's, longterm records)? Report findings @ -I reviewed the patient's prior HIDA scan and it showed no acute abnormality to explain the patient's pain Differential Diagnosis (chest pain, altered mental status, abdominal pain women, abdominal pain men, vaginal bleeding, weakness, fever, dyspnea, syncope, headache, dizziness, GI bleed, back pain, seizure, CVA, palpatations, mental health, musculoskeletal)? @ -Differential Abdominal Pain Men: Appendicitis, cholecystitis, diverticulosis, ischemic bowel, pancreatitis, hepatitis, UTI, gastroenteritis, AAA, incarcerated hernia, bowel obstruction, constipation, inflammatory bowel, hepatitis, peptic ulcer disease, splenic infarction, perforated viscus, testicular torsion, this is not meant to be an all-inclusive list EKG interpreted by me (3pts min.). @ -As above X-rays interpreted by me (1pt min.). @ -None done CT interpreted by me (1pt min.). @ -CT of the abdomen pelvis showed no acute abnormality U/S interpreted by me (1pt. min.). @ -None done What testing was considered but not performed or refused? (CT, X-rays, U/S, labs)? Why? @ -None What meds were considered but not given or refused? Why? @ -None Did you discuss the management of the patient with other professionals (pr ofessionals i.e. KIRBY Castillo, INSTRUCTOR OF NURSING, lab, RT, psych nurse, social security benefits interviewer, paramedic supervisor, teacher, child support case officer, transplant case manager)? Give summary @ -I spoke with Dr. Winston he agreed to admit the patient admit the patient I consulted Dr. Cunha Was smoking cessation discussed for >3mins.? @ -No Was critical care preformed (if so, how long)? @ -No Were there social determinants of health that impacted care today? How? (Homelessness, low income, unemployed, alcoholism, drug addiction, transportation, low edu. Level, literacy, decrease access to med. care, nursing home, rehab)? @ -No Was there de-escalation of care discussed even if they declined (Discuss DNR or withdrawal of care, Hospice)? DNR status @ -No What co-morbidities impacted this encounter? (DM, HTN, Smoking, COPD, CAD, Cancer, CVA, ARF, Chemo, Hep., AIDS, mental health diagnosis, sleep apnea, morbid obesity)? @ -High blood pressure. Was patient admitted / discharged? Hospital course, mention meds given and route, prescriptions, significant lab abnormalities, going to OR and other pertinent info. @ -Patient was given a liter half of fluid. Patient was given Zofran for vomiting. Patient was also given Dilaudid x 2. Patient states helped only briefly. Patient was then given morphine 5 mg and droperidol which seemed to help the pain significantly. I spoke with Dr. Winston he wanted the patient admitted I admitted the patient I did consult Dr. Cunha. Patient's lactic acid was elevated but there was no signs of any infection patient was hydrated with a liter and a half of fluid. Patient's blood pressure was also elevated but he did not take his blood pressure medicines this morning. Patient was given Vasotec 2.5 mg Undiagnosed new problem with uncertain prognosis? @ -No Drug Therapy requiring intensive monitoring for toxicity (Heparin, Nitro, Insulin, Cardizem)? @ -No Were any procedures done? @ -No Diagnosis/symptom? @ -Abdominal pain Acute, or Chronic, or Acute on Chronic? @ -Acute Uncomplicated (without systemic symptoms) or Complicated (systemic symptoms)? @ -Complicated Side effects of treatment? @ -No Exacerbation, Progression, or Severe Exacerbation? @ -No Poses a threat to life or bodily function? How? (Chest pain, [place], [place], pneumonia, PE, COPD, DKA, ARF, appy, cholecystitis, CVA, Diverticulitis, Homicidal, Suicidal, threat to staff... and all critical care pts) @ -Yes since the cause remains unknown this could be something significant considering the severe amount the patient is in and lead to morbidity or mortality - Lab Data Result diagrams: 11/02/23 09:45 11/02/23 09:45 Lab Results 11/02/23 11/02/23 11/02/23 Range/Units 09:45 09:45 09:45 WBC 12.9 H (3.8-10.6) k/uL RBC 5.38 (4.30-5.90) m/uL Hgb 15.7 (13.0-17.5) gm/dL Hct 47.9 (39.0-53.0) % MCV 89.0 (80.0-100.0) fL MCH 29.2 (25.0-35.0) pg MCHC 32.8 (31.0-37.0) g/dL RDW 12.7 (11.5-15.5) % Plt Count 411 (150-450) k/uL MPV 6.8 Neutrophils % 79 % Lymphocytes % 12 % Monocytes % 6 % Eosinophils % 2 % Basophils % 0 % Neutrophils # 10.2 H (1.3-7.7) k/uL Lymphocytes # 1.5 (1.0-4.8) k/uL Monocytes # 0.7 (0-1.0) k/uL Eosinophils # 0.2 (0-0.7) k/uL Basophils # 0.1 (0-0.2) k/uL Sodium 141 (137-145) mmol/L Potassium 4.6 (3.5-5.1) mmol/L Chloride 105 (98-107) mmol/L Carbon Dioxide 24 (22-30) mmol/L Anion Gap 12 mmol/L BUN 15 (9-20) mg/dL Creatinine 0.76 (0.66-1.25) mg/dL Est GFR (CKD-EPI)AfAm >90 (>60 ml/min/1.73 sqM) Est GFR (CKD-EPI)NonAf >90 (>60 ml/min/1.73 sqM) Glucose 142 H (74-99) mg/dL Plasma Lactic Acid Kurt 4.8 H* (0.7-2.0) mmol/L Calcium 10.0 (8.4-10.2) mg/dL Total Bilirubin 0.7 (0.2-1.3) mg/dL AST 27 (17-59) U/L ALT 31 (4-49) U/L Alkaline Phosphatase 71 (38-126) U/L Troponin I (0.000-0.034) ng/mL Total Protein 7.7 (6.3-8.2) g/dL Albumin 4.7 (3.5-5.0) g/dL Amylase 46 (30-110) U/L Lipase 99 (23-300) U/L 11/02/23 Range/Units 10:52 WBC (3.8-10.6) k/uL RBC (4.30-5.90) m/uL Hgb (13.0-17.5) gm/dL Hct (39.0-53.0) % MCV (80.0-100.0) fL MCH (25.0-35.0) pg MCHC (31.0-37.0) g/dL RDW (11.5-15.5) % Plt Count (150-450) k/uL MPV Neutrophils % % Lymphocytes % % Monocytes % % Eosinophils % % Basophils % % Neutrophils # (1.3-7.7) k/uL Lymphocytes # (1.0-4.8) k/uL Monocytes # (0-1.0) k/uL Eosinophils # (0-0.7) k/uL Basophils # (0-0.2) k/uL Sodium (137-145) mmol/L Potassium (3.5-5.1) mmol/L Chloride (98-107) mmol/L Carbon Dioxide (22-30) mmol/L Anion Gap mmol/L BUN (9-20) mg/dL Creatinine (0.66-1.25) mg/dL Est GFR (CKD-EPI)AfAm (>60 ml/min/1.73 sqM) Est GFR (CKD-EPI)NonAf (>60 ml/min/1.73 sqM) Glucose (74-99) mg/dL Plasma Lactic Acid Kurt (0.7-2.0) mmol/L Calcium (8.4-10.2) mg/dL Total Bilirubin (0.2-1.3) mg/dL AST (17-59) U/L ALT (4-49) U/L Alkaline Phosphatase (38-126) U/L Troponin I <0.012 (0.000-0.034) ng/mL Total Protein (6.3-8.2) g/dL Albumin (3.5-5.0) g/dL Amylase (30-110) U/L Lipase (23-300) U/L Disposition Clinical Impression: Abdominal pain, Hypertension Disposition: ADMITTED IP TO THIS [facility] Referrals: Rebecca Winston MD [Primary Care Provider] - 1-2 days Time of Disposition: 12:18
[2023-11-02 10:04] LABS: Basophils # (A) 0.1 k/uL (0-0.2); Basophils % (A) 0 %; Eosinophils # (A) 0.2 k/uL (0-0.7); Eosinophils % (A) 2 %; HCT 47.9 % (39.0-53.0); HGB 15.7 gm/dL (13.0-17.5); Lymphocytes # (A) 1.5 k/uL (1.0-4.8); Lymphocytes % (A) 12 %; MCH 29.2 pg (25.0-35.0); MCHC 32.8 g/dL (31.0-37.0); Mean Platelet Volume 6.8; Monocytes # (A) 0.7 k/uL (0-1.0); Monocytes % (A) 6 %; Neutrophils # (A) 10.2 k/uL (1.3-7.7); Neutrophils % (A) 79 %; Platelet Count 411 k/uL (150-450); RBC 5.38 m/uL (4.30-5.90); RDW 12.7 % (11.5-15.5); WBC 12.9 k/uL (3.8-10.6)
[2023-11-02 10:22] LABS: ALT 31 U/L (4-49); AST 27 U/L (17-59); African American GFR (CKD) >90 (>60 ml/min/1.73 sqM); Albumin 4.7 g/dL (3.5-5.0); Alkaline Phosphatase 71 U/L (38-126); Amylase 46 U/L (30-110); Anion Gap 12 mmol/L; Blood Urea Nitrogen 15 mg/dL (9-20); Carbon Dioxide 24 mmol/L (22-30); Chloride 105 mmol/L (98-107); Glucose 142 mg/dL (74-99); Lipase 99 U/L (23-300); Non-African American GFR(CKD) >90 (>60 ml/min/1.73 sqM); Potassium 4.6 mmol/L (3.5-5.1); Sodium 141 mmol/L (137-145); Total Bilirubin 0.7 mg/dL (0.2-1.3); Total Protein 7.7 g/dL (6.3-8.2)
--- NOTE | 2023-11-02 11:06 | CT ---
EXAMINATION TYPE: CT abdomen pelvis wo con CT DLP: 985.8 mGycm, Automated exposure control for dose reduction was used. DATE OF EXAM: 11/02/2023 10:54 AM COMPARISON: None CLINICAL INDICATION:Male, 58 years old with history of Abdominal pain severe; Abdominal pain severe. Diaphoretic TECHNIQUE: Axial CT abdomen pelvis wo con;Sagittal and coronal reformats were created on a separate workstation. Contrast used: mL of , (none if empty) Oral contrast used: without Oral Contrast (none if empty) FINDINGS: LOWER CHEST: Unremarkable ABDOMEN LIVER: Unremarkable GALLBLADDER AND BILE DUCTS: Couple small layering gallstones in the gallbladder neck. There is a sing le gallstone in the cystic duct on series 202 image 39 possibly obstructing the cystic duct. PANCREAS: Unremarkable. SPLEEN: Unremarkable. ADRENAL GLANDS: Unremarkable. KIDNEYS AND URETERS: No evidence of hydronephrosis or renal calculus. The ureters are unremarkable. PELVIS BLADDER: Unremarkable REPRODUCTIVE: Unremarkable. ABDOMEN & PELVIS STOMACH AND BOWEL: No evidence of bowel obstruction. Scattered colonic diverticula. The appendix is n ormal. PERITONEUM/RETROPERITONEUM: No evidence of pneumoperitoneum or free fluid. VASCULATURE: No evidence of aortic aneurysm. MUSCULOSKELETAL: No acute osseous abnormalities. Moderate disc degeneration changes are present throu ghout the thoracolumbar spine., right hip arthroplasty with streak artifact limits evaluation. Severe degeneration changes of the left hip with ithy-tc-mual articulation. Grade 2 anterolisthesis of L4 a nd L5 with bilateral spondylolysis. LYMPH NODES: No gross evidence for lymphadenopathy. SOFT TISSUE/ABDOMINAL WALL: Fat-containing umbilical hernia. IMPRESSION: 1. Gallstone in the cystic duct best appreciated on series 202 image 39 which may be obstructing. Co rrelate for signs and symptoms of early cholecystitis. Additional layering gallstones present. 2. Scattered colonic diverticulosis. 3. End-stage left hip osteoporosis. 4. Grade 2 anterolisthesis of L4 and L5 with bilateral spondylolysis.
[2023-11-02] MEDS: droPERidol 5 MG/2 ML VIAL IVP ONE (11:27)
[2023-11-02] MEDS: ENALAPRILAT 1.25 MG/ML 1 ML VIAL IVP STA (11:50)
[2023-11-02] MEDS: MORPHINE SULFATE 4 MG/ML SYRINGE IVP STA (11:50)
[2023-11-02 12:35] LABS: Appearance,Urine Clear (Clear); Bilirubin,Urine Negative (Negative); Blood,Urine Negative (Negative); Color,Urine Colorless; Glucose,Urine (UA) Negative (Negative); Ketones,Urine 1+ (Negative); Leukocyte Esterase,Urine Negative (Negative); Nitrite,Urine Negative (Negative); Protein,Urine Negative (Negative); Specific Gravity,Urine 1.014 (1.001-1.035); Urobilinogen,Urine <2.0 mg/dL (<2.0)
[2023-11-02] MEDS: SODIUM CHLORIDE 0.9% 1,000 ML IV ONE (15:05)
[2023-11-02] MEDS: MORPHINE SULFATE 4 MG/ML SYRINGE IVP PRN (15:47)
[2023-11-02] MEDS: KETOROLAC 15 MG/ML 1 ML VIAL IVP SCH (18:23)
[2023-11-02] MEDS: ONDANSETRON 4 MG/2 ML VIAL IVP PRN (18:24)
[2023-11-02] MEDS: AMPICILLIN-SULBACTAM 3 GM in SODIUM CHLORIDE 0.9% 100 ML IVPB SCH (18:54)
[2023-11-02] MEDS: EZETIMIBE 10 MG TAB PO SCH (18:54)
[2023-11-02] MEDS: SODIUM CHLORIDE 0.9% 1,000 ML IV SCH (18:54)
[2023-11-02] MEDS: HYDROcodone/APAP 5-325MG 1 EACH TAB PO PRN (18:54)
[2023-11-02] MEDS: amLODIPine 2.5 MG TAB PO SCH (18:54)
--- NOTE | 2023-11-02 18:59 | P.HPIM ---
History of Present Illness H&P Date: 11/02/23 Chief Complaint: Abdominal pain left upper quadrant HISTORY OF PRESENT ILLNESS: This is a 58-year-old male with a previous medical history significant for hypertension and hypertensive cardiovascular disease, hyperlipidemia, history of patent foramen ovale, history of ischemic cerebrovascular accident in the past with left sided weakness, patient was recently hospitalized at [facility] with increased left upper quadrant abdominal pain to mid epigas tric abdominal pain associated with increased nausea vomiting dry heaving as well as diaphoresis, associated with significant lactic acidosis at that time, he did have a CT scan of the abdomen pelvis at that time that showed only Patricia lithiasis without evidence of any cholecystitis, patient was admitted to the hospital at that time and he was treated with IV antibiotic as well as IV pain medication and antiemetics, and he was discharged home, he was seen in the office he was doing fine he was having episodes of this abdominal pain on and off this is the fourth episode over the last year or so, patient ended up going for a HIDA scan that was negative for acute cholecystitis or any cystic duct obstruction or biliary dyskinesia, I made an appointment for the patient to go see Dr. Velazco is a general surgery for evaluation and he is scheduled not till December or December of this year, patient apparently came to the emergency department today with significant left upper quadrant abdominal pain associated with diaphoresis nausea vomiting, he had a significant lactic acidosis, he did receive IV fluid resuscitation, he ended up started on IV pain medication in the form of Toradol, Dilaudid, morphine, droperidol, the patient is not feeling any better, added Toradol 15 mg IV push every 6 hours [id number], he was started also on IV antibiotic in the form of Unasyn, 3 g IV piggyback every 6 hours, patient will be seen in consultation by gastroenterology, as well as general surgery Dr. Decker, patient did have a CT scan of the abdomen and pelvis that showed evidence of layering gallstones, with a stone at the cystic duct suggestive of possible cystic duct obstruction, we will continue IV fluid resuscitation in the form of normal saline at 130 cc an hour, continue Zofran 4 mg IV push every 6 hours, Protonix 40 mg IV push every 24 hours, hold off aspirin and Plavix for now, continue with Unasyn 3 g IV piggyback every 6 hours obtain blood culture, stool culture, patient and his stated that they were exposed possibly to Salmonella because they have lizards at home they have tu rtles water turtles at home as well and to have multiple chickens and they get at least 16 eggs on a daily basis and 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 That need to be done urgently. REVIEW OF SYSTEMS: Constitutional: positive for documented fever, chills, poitive for night sweats. No weight change. No weakness, fatigue or lethargy. No daytime sleepiness. EENT: No headache. No blurred vision or double vision, no loss of vision. No loss of Hearing, no ringing in the ears, no dizziness. No nasal drainage or congestion. No epistaxis. No sore throat. Lungs: No shortness of breath, no cough, no sputum production. No wheezing. Reports dyspnea with activity. Cardiovascular: No chest pain, no lower extremity edema. No palpitations. No paroxysmal nocturnal dyspnea. No orthopnea. No lightheadedness or dizziness. No syncopal episodes. Abdominal: Reports abdominal pain. positive for nausea, vomiting. No diarrhea. No constipation. positive for bloody but no tarry stools reports loss of appetite. Genitourinary: No dysuria, increased frequency, urgency. No urinary retention. Musculoskeletal: No myalgias. left sided muscle weakness, no gait dysfunction, no frequent falls. No back pain. No neck pain. Integumentary: No wounds, no lesions. No rash or pruritus. No unusual bruising. No change in hair or nails. Neurologic: No aphasia. No facial droop. No change in mentation. No head injury. No headache. No paralysis. No paresthesia. Psychiatric: No depression. No anxiety. No mood swings. Endocrine: No abnormal blood sugars. No weight change. PAST MEDICAL HISTORY: Hypertension and hypertensive cardiovascular disease. Mixed hyperlipidemia. Ischemic cerebrovascular accident with left-sided weakness. Patent foramen ovale. Spondylosis of the lumbar spine. GERD with esophagitis. Cholelithiasis. Enlarged prostate. PAST SURGICAL HISTORY: Right total hip arthroplasty 2013 Tonsillectomy and adenoidectomy Transesophageal echocardiogram 2023 Colonoscopy 2022 SOCIAL HISTORY: Patient does not smoke, he drinks occasionally he denies any drug use or abuse. He lives with his . 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 FAMILY HISTORY: Father at age of 78 from acute myelogenous leukemia, mother is 88 with CVA hypertension and hyperlipidemia, patient has 1 brother 65-year-old with history of multiple sclerosis, patient has 1 sister 62-year-old with a history of patent foramen ovale status post closure device placement, patient has 1 son he is 31-year-old and he had small bowel hypoplasia ended up with a colostomy and he is doing fine now, patient has 2 daughters alive and well. PHYSICAL EXAMINATION: General: This is a 58-year-old male laying down in bed in moderate distress. HEENT: Head is atraumatic, normocephalic, pupils were equal round reactive to light and recommendation, extraocular muscle movement were intact, sclera nonicteric, conjunctivae were pale, mucous membranes of the mouth are somewhat d ry. Neck: Supple, no JVP, normal carotid upstroke bilaterally, no lymphadenopathy. Chest: Decreased breath sounds at the bases, few rhonchi, no expiratory wheezes, no chest wall tenderness, no intercostal retractions. Heart: First heart sound is normal, second heart sound is normal there is systolic ejection murmur 2/6 located in the left sternal border. Abdomen: Soft, moderate tenderness in the epigastric area and the left upper quadrant area no guarding or rebound tenderness, positive for bowel sounds. Extremities: There is no edema no calf tenderness DP +2 bilaterally. Neurologic examination: Patient is awake alert and oriented x3, cranial nerves II-12 appear grossly intact, left-sided weakness. ASSESSMENT AND PLAN: 1. Acute cholecystitis with cystic duct obstruction. Keep the patient on nothing per mouth except for his medication, start the patient on IV fluid in the form of normal saline at 130 cc an hour, continue Zofran 4 mg IV push every 6 hours as needed, continue Unasyn 3 g IV piggyback every 6 hours, obtain blood cultures, obtain stool culture, start the patient on morphine 4 mg IV push every 4 hours as needed, started the patient on Toradol 15 mg IV push every 6 hours, patient will be seen in consultation by general surgery as well as by gastroenterology. 2. Hypertension and hypertensive cardiovascular disease. Continue patient on lisinopril 20 mg orally twice every day, continue amlodipine 2.5 mg once every day, patient may have Vasotec as needed for systolic blood pressure greater than 160 monitor the patient blood pressure very closely. 3. Mixed hyperlipidemia. Continue patient on rosuvastatin 20 mg once every day, will substitute, keep LDL 55-70. 4. History of ischemic cerebrovascular accident in the past. Hold aspirin and Plavix for now for anticipation of laparoscopic cholecystectomy monitor the patient very closely. 5. GERD with esophagitis. Continue patient on Protonix 40 mg IV push every 24 hours. 6. History of patent foramen ovale. Patient has been under the care of Dr. Gunn and the plan is to have a closure device when the patient gallbladder is taken out. 7. 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 continue patient on Robaxin-750 milligram orally 3 times every day, continue Lajas for pain control and use morphine for breakthrough pain. 8. Lactic acidosis likely related to sepsis. Continue IV fluid resuscitation, continue IV antibiotic, recheck lactic acid in 6 hours. 9. DVT prophylaxis. Lovenox 40 mg subcutaneous every 24 hours. 10. GI prophylaxis. Protonix 40 mg IV push every 24 hours. 11. Admit to inpatient. Estimated length of stay 2 midnights. 12. Patient is full code. Past Medical History Past Medical History: CVA/TIA, Hyperlipidemia, Hypertension, Osteoarthritis (OA) History of Any Multi-Drug Resistant Organisms: None Reported Past Surgical History: Joint Replacement Additional Past Surgical History / Comment(s): 9 teeth pulled under anesthesia Past Anesthesia/Blood Transfusion Reactions: No Reported Reaction Past Psychological History: No Psychological Hx Reported Smoking Status: Never smoker Past Alcohol Use History: Daily, Heavy Past Drug Use History: Marijuana - Past Family History Father Family Medical History: Cancer Medications and Allergies Home Medications Medication Instructions Recorded Confirmed Type amLODIPine [Norvasc] 2.5 mg PO DAILY 04/01/23 11/02/23 History Clopidogrel [Plavix] 75 mg PO DAILY #28 tab 04/05/23 11/02/23 Rx lisinopriL [Zestril] 20 mg PO BID #60 tab 04/05/23 11/02/23 Rx Aspirin EC [Ecotrin Low Dose] 81 mg PO DAILY 11/02/23 11/02/23 History Ezetimibe [Zetia] 10 mg PO DAILY 11/02/23 11/02/23 History HYDROcodone/APAP 5-325MG [[place]ajas 1 tab PO Q12H PRN 11/02/23 11/02/23 History 5-325] Pregabalin [Lyrica] 150 mg PO BID 11/02/23 11/02/23 History Rosuvastatin [Crestor] 20 mg PO HS 11/02/23 11/02/23 History methocarbamoL [Robaxin-750] 750 mg PO BID 11/02/23 11/02/23 History traMADol HCL 50 mg PO BID PRN 11/02/23 11/02/23 History Allergies Allergy/AdvReac Type Severity Reaction Status Date / Time No Known Allergies Allergy Verified 04/01/23 12:57 Physical Exam Vitals: Vital Signs Temp Pulse Resp BP Pulse Ox 11/02/23 18:21 90 20 186/105 100 11/02/23 15:07 105 H 18 135/104 100 11/02/23 12:34 95 18 175/98 97 11/02/23 11:32 208/101 11/02/23 11:25 95 20 200/150 100 11/02/23 10:29 92 24 176/71 100 11/02/23 09:47 78 24 157/77 11/02/23 09:17 97 F L 55 L 40 H 230/120 98 Intake and Output 11/02/23 11/02/23 11/02/23 06:59 14:59 22:59 Other: Weight 113.398 kg Results CBC & Chem 7: 11/02/23 09:45 11/02/23 09:45 Labs: Abnormal Lab Results - Last 24 Hours (Table) 11/02/23 11/02/23 11/02/23 Range/Units 09:45 09:45 09:45 WBC 12.9 H (3.8-10.6) k/uL Neutrophils # 10.2 H (1.3-7.7) k/uL Glucose 142 H (74-99) mg/dL Plasma Lactic Acid Kurt 4.8 H* (0.7-2.0) mmol/L Urine Ketones (Negative) 11/02/23 11/02/23 11/02/23 Range/Units 12:29 12:55 15:43 WBC (3.8-10.6) k/uL Neutrophils # (1.3-7.7) k/uL Glucose (74-99) mg/dL Plasma Lactic Acid Kurt 3.5 H* 3.3 H* (0.7-2.0) mmol/L Urine Ketones 1+ H (Negative)
[2023-11-02] MEDS ORDERED: CLOPIDOGREL 75 MG TAB PO SCH (19:00)
[2023-11-02] MEDS ORDERED: ASPIRIN 81 MG PO SCH (19:00)
[2023-11-02] MEDS: ATORVASTATIN 40 MG TAB PO SCH (21:26)
[2023-11-02] MEDS: lisinopriL 20 MG TAB PO SCH (21:26)
[2023-11-02] MEDS: PREGABALIN 75 MG CAP PO SCH (21:26)
[2023-11-02] MEDS: methocarbamoL 750 MG TAB PO SCH (21:27)
[2023-11-03] MEDS: ENALAPRILAT 1.25 MG/ML 1 ML VIAL IVP PRN (01:15)
[2023-11-03] MEDS: PANTOPRAZOLE 40 MG/10 ML VIAL IVP SCH (08:57)
[2023-11-03] MEDS: ENOXAPARIN 40 MG/0.4 ML SYRINGE SQ SCH (08:57)
[2023-11-03 10:13] LABS: Basophils % (A) 0 %; Eosinophils % (A) 0 %; HGB 14.3 gm/dL (13.0-17.5); Lymphocytes % (A) 8 %; MCH 29.5 pg (25.0-35.0); MCHC 33.2 g/dL (31.0-37.0); MCV 88.6 fL (80.0-100.0); Mean Platelet Volume 7.2; Monocytes # (A) 0.7 k/uL (0-1.0); Monocytes % (A) 5 %; Neutrophils # (A) 10.5 k/uL (1.3-7.7); Neutrophils % (A) 84 %; Platelet Count 367 k/uL (150-450); RBC 4.85 m/uL (4.30-5.90); RDW 13.3 % (11.5-15.5); WBC 12.5 k/uL (3.8-10.6)
[2023-11-03 10:15] LABS: ALT 25 U/L (4-49); AST 24 U/L (17-59); African American GFR (CKD) >90 (>60 ml/min/1.73 sqM); Albumin 4.4 g/dL (3.5-5.0); Alkaline Phosphatase 64 U/L (38-126); Anion Gap 12 mmol/L; Blood Urea Nitrogen 15 mg/dL (9-20); Calcium 9.5 mg/dL (8.4-10.2); Carbon Dioxide 19 mmol/L (22-30); Chloride 110 mmol/L (98-107); Glucose 141 mg/dL (74-99); INR 1.1 (<1.2); Non-African American GFR(CKD) >90 (>60 ml/min/1.73 sqM); Potassium 3.8 mmol/L (3.5-5.1); Prothrombin Time 11.9 sec (10.0-12.5); Sodium 141 mmol/L (137-145); Total Bilirubin 0.7 mg/dL (0.2-1.3); Total Protein 7.2 g/dL (6.3-8.2)
--- NOTE | 2023-11-03 11:08 | P.CONS ---
History of Present Illness - Reason for Consult Consult date: 11/03/23 Severe abdominal pain Requesting physician: Mason Morales - Chief Complaint abdominal pain - History of Present Illness This is a 58-year-old male who presented to the emergency department with complaints of left lower quadrant abdominal pain. Patient is laying in bed and appears comfortable. He states that the pain has been intermittent. He states 1 to 2 weeks ago he was seen at [facility] for similar abdominal pain and has had it in the past as well. States they did not find anything at [facility]. He had a HIDA scan done as an outpatient that was normal. It is associated with nausea but no vomiting. He denies any fevers or chills. He does state that he had a little bit of blood in his bowel movement yesterday. Last colonoscopy was with Dr. Camargo in April 2023 which she states was normal. No report available. Patient had mild leukocytosis on admission, otherwise labs were unremarkable. Patient has been afebrile. He had a CT of the abdomen and pelvis that reported gallstone in the cystic duct best appreciated on series 202 image 39 which may be obstructing. Correlate for signs and symptoms of early cholecystitis. Additional layering gallstones present. Scattered colonic diverticulosis. End-stage left hip osteoporosis. Grade 2 anterolisthesis of L4 and L5 with bilateral spondylolysis. Review of Systems REVIEW OF SYSTEMS: CARDIOPULMONARY: No chest pain or shortness of breath. Gastrointestinal: Left lower abdominal pain, intermittent. Nausea with no vomiting. No hematemesis, coffee-ground emesis. No rectal bleeding, or melena. GENITOURINARY: No dysuria or hematuria. MUSCULOSKELETAL: Reports normal range of motion., Joint pain. SKIN: No rashes. No jaundice. ENDOCRINE: No chills, fevers. No excessive weight gain or loss. No polydipsia or polyuria. PSYCHIATRIC: Unremarkable. NEUROLOGY: No change in mental status. Denies dizziness, headache. ENT: Vision unremarkable. CONSTITUTIONAL: No recent weight loss. No fever, chills, night sweats. Past Medical History Past Medical History: CVA/TIA, Hyperlipidemia, Hypertension, Osteoarthritis (OA) History of Any Multi-Drug Resistant Organisms: None Reported Past Surgical History: Joint Replacement Additional Past Surgical History / Comment(s): 9 teeth pulled under anesthesia Past Anesthesia/Blood Transfusion Reactions: No Reported Reaction Past Psychological History: No Psychological Hx Reported Smoking Status: Former smoker Past Alcohol Use History: Daily, Heavy Additional Past Alcohol Use History / Comment(s): 8-10 beers/day Past Drug Use History: Marijuana - Past Family History Father Family Medical History: Cancer Medications and Allergies Home Medications Medication Instructions Recorded Confirmed Type amLODIPine [Norvasc] 2.5 mg PO DAILY 04/01/23 11/02/23 History Clopidogrel [Plavix] 75 mg PO DAILY #28 tab 04/05/23 11/02/23 Rx lisinopriL [Zestril] 20 mg PO BID #60 tab 04/05/23 11/02/23 Rx Aspirin EC [Ecotrin Low Dose] 81 mg PO DAILY 11/02/23 11/02/23 History Ezetimibe [Zetia] 10 mg PO DAILY 11/02/23 11/02/23 History HYDROcodone/APAP 5-325MG [[place] 1 tab PO Q12H PRN 11/02/23 11/02/23 History 5-325] Pregabalin [Lyrica] 150 mg PO BID 11/02/23 11/02/23 History Rosuvastatin [Crestor] 20 mg PO HS 11/02/23 11/02/23 History methocarbamoL [Robaxin-750] 750 mg PO BID 11/02/23 11/02/23 History traMADol HCL 50 mg PO BID PRN 11/02/23 11/02/23 History Allergies Allergy/AdvReac Type Severity Reaction Status Date / Time No Known Allergies Allergy Verified 04/01/23 12:57 Physical Exam Vitals: Vital Signs Temp Pulse Pulse Resp BP BP Pulse Ox 11/03/23 04:14 98.1 F 80 16 145/72 98 11/03/23 02:13 162/54 11/03/23 01:08 97.8 F 78 16 170/85 98 11/02/23 23:13 88 11/02/23 20:35 95 18 170/86 98 11/02/23 20:00 98.2 F 16 155/88 95 11/02/23 19:24 94 20 164/95 100 11/02/23 18:21 90 20 186/105 100 11/02/23 15:07 105 H 18 135/104 100 11/02/23 12:34 95 18 175/98 97 11/02/23 11:32 208/101 11/02/23 11:25 95 20 200/150 100 11/02/23 10:29 92 24 176/71 100 11/02/23 09:47 78 24 157/77 11/02/23 09:17 97 F L 55 L 40 H 230/120 98 Intake and Output 11/02/23 11/03/23 11/03/23 22:59 06:59 14:59 Intake Total 1240 Output Total 600 Balance 640 Intake: Intake, IV Titration 1240 Amount Ampicillin-Sulbactam 3 gm 200 In Sodium Chloride 0.9% 100 ml @ 200 mls/hr IVPB Q6HR SHRUTI Rx#:[id number] Sodium Chloride 0.9% 1, 1040 000 ml @ 130 mls/hr IV . Q7H42M SHRUTI Rx#:[id number] Oral 0 Output: Urine 600 Other: Weight 113.398 kg General appearance: The patient is alert, oriented, appears in no acute distress. HET: Head is normocephalic and atraumatic. Conjunctiva pink. Sclera anicteric. Neck: Supple without lymphadenopathy. Trachea midline. Heart: Regular. Lungs: Equal expansion, normal respiratory effort. Abdomen: Soft, left lower quadrant tenderness, nondistended. Skin: No rashes. No jaundice. Extremities: Normal skin color and turgor. No pedal edema. Neurological: No focal deficits. Alert and oriented x3. Results CBC & Chem 7: 11/03/23 09:14 11/03/23 09:14 Labs: Abnormal Lab Results - Last 24 Hours (Table) 11/02/23 11/02/23 11/02/23 Range/Units 09:45 09:45 09:45 WBC 12.9 H (3.8-10.6) k/uL Neutrophils # 10.2 H (1.3-7.7) k/uL Glucose 142 H (74-99) mg/dL Plasma Lactic Acid Kurt 4.8 H* (0.7-2.0) mmol/L Urine Ketones (Negative) 11/02/23 11/02/23 11/02/23 Range/Units 12:29 12:55 15:43 WBC (3.8-10.6) k/uL Neutrophils # (1.3-7.7) k/uL Glucose (74-99) mg/dL Plasma Lactic Acid Kurt 3.5 H* 3.3 H* (0.7-2.0) mmol/L Urine Ketones 1+ H (Negative) 11/02/23 Range/Units 19:17 WBC (3.8-10.6) k/uL Neutrophils # (1.3-7.7) k/uL Glucose (74-99) mg/dL Plasma Lactic Acid Kurt 3.5 H* (0.7-2.0) mmol/L Urine Ketones (Negative) Comments: CT of the abdomen and pelvis that reported gallstone in the cystic duct best appreciated on series 202 image 39 which may be obstructing. Correlate for signs and symptoms of early cholecystitis. Additional layering gallstones present. Scattered colonic diverticulosis. End-stage left hip osteoporosis. Grade 2 anterolisthesis of L4 and L5 with bilateral spondylolysis. Assessment and Plan (1) Left lower quadrant abdominal pain Narrative/Plan: 58-year-old male presenting with severe intermittent left lower quadrant abdominal pain. He has been seen at an outside facility within the last couple weeks had workup there and was sent home. He had an outpatient HIDA scan that was normal. CT abdomen pelvis reports multiple gallstones with a gallstone in the cystic duct possibly occluded. However patient has no pain in the right upper quadrant or epigastric region. LFTs are normal. Mild leukocytosis and patient has reported IV small amount of blood in his stool yesterday. CT of the abdomen pelvis did note pockets of diverticulosis. Patient's symptoms are more consistent with diverticulitis, patient's pain likely secondary to acute diverticulitis. He is currently on IV Unasyn. Recommend continuing IV antibiotics. Clear liquid diet and advance as tolerated. No plans on endoscopic evaluation at this time. Current Visit: Yes Status: Acute Code(s): R10.32 - LEFT LOWER QUADRANT PAIN SNOMED Code(s): 506248707 Plan: 1. Continue symptomatic and supportive care 2. Pain medication as needed 3. Continue IV antibiotics 4. Antiemetics as needed 5. Clear liquid diet, advance as tolerated 6. No indication for any endoscopic evaluation at this time 7. Continue with recommended patient's from general surgery Thank you for allowing us to participate in the care of the patient, the GI service will sign off, gastroenterology will not be available at the hospital this weekend and through next week. If further evaluation by gastroenterology is required the patient will need transfer as per the primary team's discretion. Dr. Sheryl Feng I agree with the dictator's note, documented as a scribe by Lazara Pérez.
--- NOTE | 2023-11-03 14:52 | P.GSCN ---
History of Present Illness Consult date: 11/03/23 History of present illness: CHIEF COMPLAINT: Abdominal pain HISTORY OF PRESENT ILLNESS: This is a 58-year-old male who presented to the hospital with complaints of abdominal pain and vomiting that started yesterday. Patient had reported having symptoms similar intermittently over the last 3 weeks. He had a similar episode 3 years ago. He reports having bowel movem ents. Denies any fever chills or sweats. He had a CT scan abdomen and pelvis completed that had reported gallstone in the cystic duct which may be obstructing. An additional layering gallstones present. Scattered colonic diverticulosis. LFTs and lipase are within normal limits. Patient did have elevated white count and lactic acid level on admission. Patient had a prior HIDA scan October 27, 2023 which was normal EF of 59%. Patient does take Plavix at home. Last dose of Plavix was October 31. Patient seen and examined with Dr. Reeves PAST MEDICAL HISTORY: CVA/TIA, hyperlipidemia, hypertension osteoarthritis PAST SURGICAL HISTORY: None MEDICATIONS: See below ALLERGIES: See below SOCIAL HISTORY: No illicit drug use. Daily alcohol use REVIEW OF SYSTEMS: CONSTITUTIONAL: Denies fever or chills. HEENT: Denies blurred vision, vision changes, or eye pain. Denies hemoptysis CARDIOVASCULAR: Denies chest pain or pressure. RESPIRATORY: No shortness of breath. GASTROINTESTINAL: See HPI for pertinent findings HEMATOLOGIC: Denies bleeding disorders. GENITOURINARY: Denies any blood in urine or increased urinary frequency. SKIN: Denies pruitis. Denies rash. PHYSICAL EXAM: VITAL SIGNS: Reviewed GENERAL: Well-developed in no acute distress. HEENT: No sclera icterus. Extraocular movements grossly intact. Moist buccal mucosa. Head is atraumatic, normocephalic. No nasal drainage. ABDOMEN: Soft. Nondistended. Tenderness with palpation left upper quadrant epigastric area and to the left of the umbilicus NEUROLOGIC: Alert and oriented. Cranial nerves II through XII grossly intact. LABORATORY DATA: WBC 12.5 Hgb 14.3 platelets 367 Sodium is 141 potassium 3.8 creatinine 0.62 Lactic acid 3.5 down to 1.4 LFTs normal lipase 99 IMAGING: CT scan abdomen pelvis reports gallstone in the cystic duct, which may be obstructing. Additional layering gallstones present. Scattered colonic diverticulosis. End-stage left hip osteoporosis. Grade 2 anterolisthesis of L4 and L5 ASSESSMENT: 1. Abdominal pain with vomiting 2. Cholelithiasis with CT scan reporting gallstone in the cystic duct. LFTs are normal 3. Possible cholecystitis PLAN: -Abdominal ultrasound ordered for further evaluation of gallstones -Agree with clear liquid diet -Patient tentatively scheduled for laparoscopic cholecystectomy on Monday with Dr. Reeves -Continue antibiotics Physician [facility] Manager note has been reviewed by physician. Signing provider agrees with the documented findings, assessment, and plan of care. Past Medical History Past Medical History: CVA/TIA, Hyperlipidemia, Hypertension, Osteoarthritis (OA) History of Any Multi-Drug Resistant Organisms: None Reported Past Surgical History: Joint Replacement Additional Past Surgical History / Comment(s): 9 teeth pulled under anesthesia Past Anesthesia/Blood Transfusion Reactions: No Reported Reaction Past Psychological History: No Psychological Hx Reported Smoking Status: Former smoker Past Alcohol Use History: Daily, Heavy Additional Past Alcohol Use History / Comment(s): 8-10 beers/day Past Drug Use History: Marijuana - Past Family History Father Family Medical History: Cancer Medications and Allergies Home Medications Medication Instructions Recorded Confirmed Type amLODIPine [Norvasc] 2.5 mg PO DAILY 04/01/23 11/02/23 History Clopidogrel [Plavix] 75 mg PO DAILY #28 tab 04/05/23 11/02/23 Rx lisinopriL [Zestril] 20 mg PO BID #60 tab 04/05/23 11/02/23 Rx Aspirin EC [Ecotrin Low Dose] 81 mg PO DAILY 11/02/23 11/02/23 History Ezetimibe [Zetia] 10 mg PO DAILY 11/02/23 11/02/23 History HYDROcodone/APAP 5-325MG [[place] 1 tab PO Q12H PRN 11/02/23 11/02/23 History 5-325] Pregabalin [Lyrica] 150 mg PO BID 11/02/23 11/02/23 History Rosuvastatin [Crestor] 20 mg PO HS 11/02/23 11/02/23 History methocarbamoL [Robaxin-750] 750 mg PO BID 11/02/23 11/02/23 History traMADol HCL 50 mg PO BID PRN 11/02/23 11/02/23 History Allergies Allergy/AdvReac Type Severity Reaction Status Date / Time No Known Allergies Allergy Verified 04/01/23 12:57 Surgical - Exam Vital Signs Temp Pulse Resp BP Pulse Ox 97 F L 55 L 40 H 230/120 98 11/02/23 09:17 11/02/23 09:17 11/02/23 09:17 11/02/23 09:17 11/02/23 09:17 Results - Labs 11/03/23 09:14 11/03/23 09:14 Abnormal Lab Results - Last 24 Hours (Table) 11/02/23 11/02/23 11/02/23 Range/Units 12:55 15:43 19:17 WBC (3.8-10.6) k/uL Neutrophils # (1.3-7.7) k/uL Chloride (98-107) mmol/L Carbon Dioxide (22-30) mmol/L Creatinine (0.66-1.25) mg/dL Glucose (74-99) mg/dL Plasma Lactic Acid Kurt 3.5 H* 3.3 H* 3.5 H* (0.7-2.0) mmol/L 11/03/23 11/03/23 Range/Units 09:14 09:14 WBC 12.5 H (3.8-10.6) k/uL Neutrophils # 10.5 H (1.3-7.7) k/uL Chloride 110 H (98-107) mmol/L Carbon Dioxide 19 L (22-30) mmol/L Creatinine 0.62 L (0.66-1.25) mg/dL Glucose 141 H (74-99) mg/dL Plasma Lactic Acid Kurt (0.7-2.0) mmol/L Diabetes panel 11/03/23 Range/Units 09:14 Sodium 141 (137-145) mmol/L Potassium 3.8 (3.5-5.1) mmol/L Chloride 110 H (98-107) mmol/L Carbon Dioxide 19 L (22-30) mmol/L BUN 15 (9-20) mg/dL Creatinine 0.62 L (0.66-1.25) mg/dL Glucose 141 H (74-99) mg/dL Calcium 9.5 (8.4-10.2) mg/dL AST 24 (17-59) U/L ALT 25 (4-49) U/L Alkaline Phosphatase 64 (38-126) U/L Total Protein 7.2 (6.3-8.2) g/dL Albumin 4.4 (3.5-5.0) g/dL Calcium panel 11/03/23 Range/Units 09:14 Calcium 9.5 (8.4-10.2) mg/dL Albumin 4.4 (3.5-5.0) g/dL Pituitary panel 11/03/23 Range/Units 09:14 Sodium 141 (137-145) mmol/L Potassium 3.8 (3.5-5.1) mmol/L Chloride 110 H (98-107) mmol/L Carbon Dioxide 19 L (22-30) mmol/L BUN 15 (9-20) mg/dL Creatinine 0.62 L (0.66-1.25) mg/dL Glucose 141 H (74-99) mg/dL Calcium 9.5 (8.4-10.2) mg/dL Adrenal panel 11/03/23 Range/Units 09:14 Sodium 141 (137-145) mmol/L Potassium 3.8 (3.5-5.1) mmol/L Chloride 110 H (98-107) mmol/L Carbon Dioxide 19 L (22-30) mmol/L BUN 15 (9-20) mg/dL Creatinine 0.62 L (0.66-1.25) mg/dL Glucose 141 H (74-99) mg/dL Calcium 9.5 (8.4-10.2) mg/dL Total Bilirubin 0.7 (0.2-1.3) mg/dL AST 24 (17-59) U/L ALT 25 (4-49) U/L Alkaline Phosphatase 64 (38-126) U/L Total Protein 7.2 (6.3-8.2) g/dL Albumin 4.4 (3.5-5.0) g/dL
[2023-11-04] MEDS: METOCLOPRAMIDE 5 MG/ML 2 ML VIAL IVP PRN (04:04)
[2023-11-04] MEDS ORDERED: METOCLOPRAMIDE 5 MG/ML 2 ML VIAL IVP SCH (06:00)
--- NOTE | 2023-11-04 08:12 | US ---
EXAMINATION TYPE: US gallbladder DATE OF EXAM: 11/04/2023 Exam done portable COMPARISON: CT 2023 CLINICAL INDICATION: Male, 58 years old with history of abdominal pain, vomiting; TECHNIQUE: Multiple sonographic images of the right upper quadrant are obtained. FINDINGS: EXAM MEASUREMENTS: Liver Length: 18.3 cm Gallbladder Wall: 0.3 cm CBD: 0.6 cm Right Kidney: 11.5 x 4.8 x 6.2 cm Pancreas: obscured by overlying midline bowel gas Liver: enlarged Gallbladder: borderline hydropic, cholelithiasis with sludge, limited visualization of cystic duct - unable to confirm stone in cystic duct seen on CT Evidence for sonographic Unger's sign: yes CBD: visualized portions borderline dilated, limited by overlying bowel gas Right Kidney: wnl IMPRESSION: 1. Findings consistent with acute cholecystitis with positive sonographic Unger sign, distended gall bladder and cholelithiasis. 2. Mild hepatomegaly. 3. Pancreas obscured by bowel gas.
[2023-11-04 09:25] LABS: Basophils % (A) 0 %; Eosinophils % (A) 0 %; HCT 43.6 % (39.0-53.0); HGB 14.3 gm/dL (13.0-17.5); Lymphocytes # (A) 0.8 k/uL (1.0-4.8); Lymphocytes % (A) 6 %; MCHC 32.7 g/dL (31.0-37.0); MCV 88.7 fL (80.0-100.0); Monocytes # (A) 0.5 k/uL (0-1.0); Monocytes % (A) 3 %; Neutrophils % (A) 90 %; Platelet Count 342 k/uL (150-450); RBC 4.92 m/uL (4.30-5.90); RDW 12.8 % (11.5-15.5); WBC 14.5 k/uL (3.8-10.6)
[2023-11-04 09:37] LABS: ALT 32 U/L (4-49); AST 32 U/L (17-59); African American GFR (CKD) >90 (>60 ml/min/1.73 sqM); Albumin 4.7 g/dL (3.5-5.0); Alkaline Phosphatase 66 U/L (38-126); Anion Gap 15 mmol/L; Blood Urea Nitrogen 12 mg/dL (9-20); Calcium 9.3 mg/dL (8.4-10.2); Carbon Dioxide 20 mmol/L (22-30); Chloride 103 mmol/L (98-107); Glucose 123 mg/dL (74-99); Non-African American GFR(CKD) >90 (>60 ml/min/1.73 sqM); Potassium 3.6 mmol/L (3.5-5.1); Sodium 138 mmol/L (137-145); Total Bilirubin 0.9 mg/dL (0.2-1.3); Total Protein 7.4 g/dL (6.3-8.2)
--- NOTE | 2023-11-04 11:01 | P.PN ---
Subjective Progress Note Date: 11/04/23 NAEON. Patient endorses persistent RUQ pain. No N/V. No F/C. No SOB or CP. Voiding and ambulatory. Admits to flatus no BM. Objective - Vital Signs Vital signs: Vital Signs Temp 97.8 F 11/04/23 08:00 Pulse 87 11/04/23 08:00 Resp 16 11/04/23 08:00 BP 178/96 11/04/23 08:00 Pulse Ox 97 11/04/23 08:00 FiO2 Intake & Output 11/03/23 11/04/23 11/04/23 18:59 06:59 18:59 Intake Total 240 Output Total 500 1700 Balance -500 -1460 Intake: Oral 240 Output: Urine 500 1700 Other: # Voids 2 - Exam Gen: AxO, NAD Pulm: non-labored respiration Abd: soft, mildly-tender in RUQ, non-distended. No guarding/rebound/rigidity Extrem: no edema seen - Labs CBC & Chem 7: 11/04/23 08:45 11/04/23 08:45 Labs: Abnormal Lab Results - Last 24 Hours (Table) 11/04/23 11/04/23 Range/Units 08:45 08:45 WBC 14.5 H (3.8-10.6) k/uL Neutrophils # 13.0 H (1.3-7.7) k/uL Lymphocytes # 0.8 L (1.0-4.8) k/uL Carbon Dioxide 20 L (22-30) mmol/L Creatinine 0.57 L (0.66-1.25) mg/dL Glucose 123 H (74-99) mg/dL Microbiology - Last 24 Hours (Table) 11/02/23 19:00 Blood Culture - Preliminary Blood 11/02/23 18:45 Blood Culture - Preliminary Blood Assessment and Plan Assessment: Patient is a 58 year old male who presents with concerns for acute cholecysitits. Plan: -RUQ US: hydropic gallbladder with wall thickening concerning for acute cholecysitits -NPO at midnight on 11/05/23 -IV abx -IVF hydration -PRN pain and nausea control -Plan for lap sigrid on 11/06/23 Hernan Zuleta MD General Surgery
--- NOTE | 2023-11-04 14:20 | P.PN ---
Subjective Progress Note Date: 11/03/23 HISTORY OF PRESENT ILLNESS: This is a 58-year-old male with a previous medical history significant for hypertension and hypertensive cardiovascular disease, hyperlipidemia, history of patent foramen ovale, history of ischemic cerebrovascular accident in the past with left sided weakness, patient was recently hospitalized at [facility] with increased left upper quadrant abdominal pain to mid epigastric abdominal pain associated with increased nausea vomiting dry heaving as well as diaphoresis, associated with significant lactic acidosis at that time, he did have a CT scan of the abdomen pelvis at that time that showed only Patricia lithiasis without evidence of any cholecystitis, patient was admitted to the hospital at that time and he was treated with IV antibiotic as well as IV pain medication and antiemetics, and he was discharged home, he was seen in the office he was doing fine he was having episodes of this abdominal pain on and off this is the fourth episode over the last year or so, patient ended up going for a HIDA scan that was negative for acute cholecystitis or any cystic duct obstruction or biliary dyskinesia, I made an appointment for the patient to go s Dr. Velazco is a general surgery for evaluation and he is scheduled not till December or December of this year, patient apparently came to the emergency department today with significant left upper quadrant abdominal pain associated with diaphoresis nausea vomiting, he had a significant lactic acidosis, he did receive IV fluid resuscitation, he ended up started on IV pain medication in the form of Toradol, Dilaudid, morphine, droperidol, the patient is not feeling any better, added Toradol 15 mg IV push every 6 hours [id number], he was started also on IV antibiotic in the form of Unasyn, 3 g IV piggyback every 6 hours, patient will be seen in consultation by gastroenterology, as well as gene ral surgery Dr. Decker, patient did have a CT scan of the abdomen and pelvis that showed evidence of layering gallstones, with a stone at the cystic duct suggestive of possible cystic duct obstruction, we will continue IV fluid resuscitation in the form of normal saline at 130 cc an hour, continue Zofran 4 mg IV push every 6 hours, Protonix 40 mg IV push every 24 hours, hold off aspirin and Plavix for now, continue with Unasyn 3 g IV piggyback every 6 hours obtain blood culture, stool culture, patient and his stated that they were exposed possibly to Salmonella because they have lizards at home they have turtles water turtles at home as well and to have multiple chickens and they get at least 16 eggs on a daily basis and 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 That need to be done urgently. 11/02: Patient sitting up in bed, pain seems to be under better control today. Patient was seen today by both GI and surgery. GI has signed off. Awaiting result of ultrasound of gallbladder as well is surgical recommendation. Continue Unasyn 3 g every 6 hours. Continue current pain regimen. REVIEW OF SYSTEMS: Constitutional: positive for documented fever, chills, poitive for night sweats. No weight change. No weakness, fatigue or lethargy. No daytime sleepiness. EENT: No headache. No blurred vision or double vision, no loss of vision. No loss of Hearing, no ringing in the ears, no dizziness. No nasal drainage or congestion. No epistaxis. No sore throat. Lungs: No shortness of breath, no cough, no sputum production. No wheezing. Reports dyspnea with activity. Cardiovascular: No chest pain, no lower extremity edema. No palpitations. No paroxysmal nocturnal dyspnea. No orthopnea. No lightheadedness or dizziness. No syncopal episodes. Abdominal: Reports abdominal pain. positive for nausea, vomiting. No diarrhea. No constipation. positive for bloody but no tarry stools reports loss of appetite. Genitourinary: No dysuria, increased frequency, urgency. No urinary retention. Musculoskeletal: No myalgias. left sided muscle weakness, no gait dysfunction, no frequent falls. No back pain. No neck pain. Integumentary: No wounds, no lesions. No rash or pruritus. No unusual bruising. No change in hair or nails. Neurologic: No aphasia. No facial droop. No change in mentation. No head injury. No headache. No paralysis. No paresthesia. Psychiatric: No depression. No anxiety. No mood swings. Endocrine: No abnormal blood sugars. No weight change. PHYSICAL EXAMINATION: General: This is a 58-year-old male laying down in bed in moderate distress. HEENT: Head is atraumatic, normocephalic, pupils were equal round reactive to light and recommendation, extraocular muscle movement were intact, sclera no nicteric, conjunctivae were pale, mucous membranes of the mouth are somewhat dry. Neck: Supple, no JVP, normal carotid upstroke bilaterally, no lymphadenopathy. Chest: Decreased breath sounds at the bases, few rhonchi, no expiratory wheezes, no chest wall tenderness, no intercostal retractions. Heart: First heart sound is normal, second heart sound is normal there is systolic ejection murmur 2/6 located in the left sternal border. Abdomen: Soft, moderate tenderness in the epigastric area and the left upper quadrant area no guarding or rebound tenderness, positive for bowel sounds. Extremities: There is no edema no calf tenderness DP +2 bilaterally. Neurologic examination: Patient is awake alert and oriented x3, cranial nerves II-12 appear grossly intact, left-sided weakness. ASSESSMENT AND PLAN: 1. Acute cholecystitis with cystic duct obstruction. Keep the patient on nothing per mouth except for his medication, start the patient on IV fluid in the form of normal saline at 130 cc an hour, continue Zofran 4 mg IV push every 6 hours as needed, continue Unasyn 3 g IV piggyback every 6 hours, obtain blood cultures, obtain stool culture, start the patient on morphine 4 mg IV push every 4 hours as needed, started the patient on Toradol 15 mg IV push every 6 hours, patient will be seen in consultation by general surgery as well as by gastroenterology. 2. Hypertension and hypertensive cardiovascular disease. Continue patient on lisinopril 20 mg orally twice every day, continue amlodipine 2.5 mg once every day, patient may have Vasotec as needed for systolic blood pressure greater than 160 monitor the patient blood pressure very closely. 3. Mixed hyperlipidemia. Continue patient on rosuvastatin 20 mg once every day, will substitute, keep LDL 55-70. 4. History of ischemic cerebrovascular accident in the past. Hold aspirin and Plavix for now for anticipation of laparoscopic cholecystectomy monitor the patient very closely. 5. GERD with esophagitis. Continue patient on Protonix 40 mg IV push every 24 hours. 6. History of patent foramen ovale. Patient has been under the care of Dr. Gunn and the plan is to have a closure device when the patient gallbladder is taken out. 7. 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 8. Lactic acidosis likely related to sepsis. Continue IV fluid resuscitation, continue IV antibiotic, recheck lactic acid in 6 hours. 9. DVT prophylaxis. Lovenox 40 mg subcutaneous every 24 hours. 10. GI prophylaxis. Protonix 40 mg IV push every 24 hours. Impression and plan of care have been directed as dictated by the signing physician. Ximena Maxwell, nurse practitioner acting as scribe for signing physician. Objective - Vital Signs Vital signs: Vital Signs Temp 98.3 F 11/03/23 11:55 Pulse 88 11/03/23 11:55 Resp 18 11/03/23 11:55 BP 145/86 11/03/23 11:55 Pulse Ox 98 11/03/23 11:55 FiO2 Intake & Output 11/02/23 11/03/23 11/03/23 18:59 06:59 18:59 Intake Total 1240 Output Total 600 Balance 640 Weight 113.398 kg 113.398 kg Intake: Intake, IV Titration 1240 Amount Ampicillin-Sulbactam 3 gm 200 In Sodium Chloride 0.9% 100 ml @ 200 mls/hr IVPB Q6HR [facility] Rx#:[id number] Sodium Chloride 0.9% 1, 1040 000 ml @ 130 mls/hr IV . [id number] [facility] Rx#:[id number] Oral 0 Output: Urine 600 - Labs CBC & Chem 7: 11/04/23 08:45 11/04/23 08:45 Labs: Abnormal Lab Results - Last 24 Hours (Table) 11/02/23 11/02/23 11/03/23 Range/Units 15:43 19:17 09:14 WBC 12.5 H (3.8-10.6) k/uL Neutrophils # 10.5 H (1.3-7.7) k/uL Chloride (98-107) mmol/L Carbon Dioxide (22-30) mmol/L Creatinine (0.66-1.25) mg/dL Glucose (74-99) mg/dL Plasma Lactic Acid Kurt 3.3 H* 3.5 H* (0.7-2.0) mmol/L 11/03/23 Range/Units 09:14 WBC (3.8-10.6) k/uL Neutrophils # (1.3-7.7) k/uL Chloride 110 H (98-107) mmol/L Carbon Dioxide 19 L (22-30) mmol/L Creatinine 0.62 L (0.66-1.25) mg/dL Glucose 141 H (74-99) mg/dL Plasma Lactic Acid Kurt (0.7-2.0) mmol/L
--- NOTE | 2023-11-04 17:07 | P.PN ---
Subjective Progress Note Date: 11/04/23 HISTORY OF PRESENT ILLNESS: This is a 58-year-old male with a previous medical history significant for hypertension and hypertensive cardiovascular disease, hyperlipidemia, history of patent foramen ovale, history of ischemic cerebrovascular accident in the past with left sided weakness, patient was recently hospitalized at [facility] with increased left upper quadrant abdominal pain to mid epigastric abdominal pain associated with increased nausea vomiting dry heaving as well as diaphoresis, associated with significant lactic acidosis at that time, he did have a CT scan of the abdomen pelvis at that time that showed only Patricia lithiasis without evidence of any cholecystitis, patient was admitted to the hospital at that time and he was treated with IV antibiotic as well as IV pain medication and antiemetics, and he was discharged home, he was seen in the office he was doing fine he was having episodes of this abdominal pain on and off this is the fourth episode over the last year or so, patient ended up going for a HIDA scan that was negative for acute cholecystitis or any cystic duct obstruction or biliary dyskinesia, I made an appointment for the patient to go s Dr. Velazco is a general surgery for evaluation and he is scheduled not till December or December of this year, patient apparently came to the emergency department today with significant left upper quadrant abdominal pain associated with diaphoresis nausea vomiting, he had a significant lactic acidosis, he did receive IV fluid resuscitation, he ended up started on IV pain medication in the form of Toradol, Dilaudid, morphine, droperidol, the patient is not feeling any better, added Toradol 15 mg IV push every 6 hours [id number], he was started also on IV antibiotic in the form of Unasyn, 3 g IV piggyback every 6 hours, patient will be seen in consultation by gastroenterology, as well as gene ral surgery Dr. Decker, patient did have a CT scan of the abdomen and pelvis that showed evidence of layering gallstones, with a stone at the cystic duct suggestive of possible cystic duct obstruction, we will continue IV fluid resuscitation in the form of normal saline at 130 cc an hour, continue Zofran 4 mg IV push every 6 hours, Protonix 40 mg IV push every 24 hours, hold off aspirin and Plavix for now, continue with Unasyn 3 g IV piggyback every 6 hours obtain blood culture, stool culture, patient and his stated that they were exposed possibly to Salmonella because they have lizards at home they have turtles water turtles at home as well and to have multiple chickens and they get at least 16 eggs on a daily basis and 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 That need to be done urgently. 11/02: Patient sitting up in bed, pain seems to be under better control today. Patient was seen today by both GI and surgery. GI has signed off. Awaiting result of ultrasound of gallbladder as well is surgical recommendation. Continue Unasyn 3 g every 6 hours. Continue current pain regimen. 11/03: Patient resting at this time states that his pain is 6 out of 10. He has had multiple episodes of nausea and vomiting today. Continue Reglan 10 mg IV push every 6 hours as needed as well is current pain regimen. Gallbladder ultrasound revealed acute cholecystitis, positive sonographic Unger sign, distended gallbladder and cholelithiasis. Plan is for lap sigrid on Monday, November 05. Continue Unasyn 3 g every 6 hours. Continue clear liquid diet and patient is to be NPO tomorrow at midnight. REVIEW OF SYSTEMS: Constitutional: positive for documented fever, chills, poitive for night sweats. No weight change. No weakness, fatigue or lethargy. No daytime sleepiness. EENT: No headache. No blurred vision or double vision, no loss of vision. No loss of Hearing, no ringing in the ears, no dizziness. No nasal drainage or congestion. No epistaxis. No sore throat. Lungs: No shortness of breath, no cough, no sputum production. No wheezing. Reports dyspnea with activity. Cardiovascular: No chest pain, no lower extremity edema. No palpitations. No paroxysmal nocturnal dyspnea. No orthopnea. No lightheadedness or dizziness. No syncopal episodes. Abdominal: Reports abdominal pain. positive for nausea, vomiting. No diarrhea. No constipation. positive for bloody but no tarry stools reports loss of appetite. Genitourinary: No dysuria, increased frequency, urgency. No urinary retention. Musculoskeletal: No myalgias. left sided muscle weakness, no gait dysfunction, no frequent falls. No back pain. No neck pain. Integumentary: No wounds, no lesions. No rash or pruritus. No unusual bruising. No change in hair or nails. Neurologic: No aphasia. No facial droop. No change in mentation. No head injury. No headache. No paralysis. No paresthesia. Psychiatric: No depression. No anxiety. No mood swings. Endocrine: No abnormal blood sugars. No weight change. PHYSICAL EXAMINATION: General: This is a 58-year-old male laying down in bed in moderate distress. HEENT: Head is atraumatic, normocephalic, pupils were equal round reactive to light and recommendation, extraocular muscle movement were intact, sclera nonicteric, conjunctivae were pale, mucous membranes of the mouth are somewhat dry. Neck: Supple, no JVP, normal carotid upstroke bilaterally, no lymphadenopathy. Chest: Decreased breath sounds at the bases, few rhonchi, no expiratory wheezes, no chest wall tenderness, no intercostal retractions. Heart: First heart sound is normal, second heart sound is normal there is systolic ejection murmur 2/6 located in the left sternal border. Abdomen: Soft, moderate tenderness in the epigastric area and the left upper quadrant area no guarding or rebound tenderness, positive for bowel sounds. Extremities: There is no edema no calf tenderness DP +2 bilaterally. Neurologic examination: Patient is awake alert and oriented x3, cranial nerves II-12 appear grossly intact, left-sided weakness. ASSESSMENT AND PLAN: 1. Acute cholecystitis with cystic duct obstruction. Continue clear liquid diet. Continue Unasyn 3 g IV piggyback every 6 hours. Continue morphine 4 mg IV push every 4 hours as needed continue Toradol 15 mg IV push every 6 hours scheduled. Continue Zofran 4 mg IV push as needed and Reglan 10 mg IV push as needed. Plan is for lap sigrid on Monday. 2. Hypertension and hypertensive cardiovascular disease. Continue patient on lisinopril 20 mg orally twice every day, continue amlodipine 2.5 mg once every day, patient may have Vasotec as needed for systolic blood pressure greater than 160 monitor the patient blood pressure very closely. 3. Mixed hyperlipidemia. Continue patient on rosuvastatin 20 mg once every day, will substitute, keep LDL 55-70. 4. History of ischemic cerebrovascular accident in the past. Hold aspirin and Plavix. 5. GERD with esophagitis. Continue patient on Protonix 40 mg IV push every 24 hours. 6. History of patent foramen ovale. Patient has been under the care of Dr. Gunn and the plan is to have a closure device when the patient gallbladder is taken out. 7. 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 8. Lactic acidosis likely related to sepsis. Continue IV fluid resuscitation, continue IV antibiotic. 9. DVT prophylaxis. Lovenox 40 mg subcutaneous every 24 hours. 10. GI prophylaxis. Protonix 40 mg IV push every 24 hours. Impression and plan of care have been directed as dictated by the signing physician. Ximena Maxwell, nurse practitioner acting as scribe for signing physician. Objective - Vital Signs Vital signs: Vital Signs Temp 98.4 F 11/04/23 12:25 Pulse 87 11/04/23 12:25 Resp 16 11/04/23 12:25 BP 132/84 11/04/23 12:25 Pulse Ox 96 11/04/23 12:25 FiO2 Intake & Output 11/03/23 11/04/23 11/04/23 18:59 06:59 18:59 Intake Total 240 Output Total 500 1700 Balance -500 -1460 Intake: Oral 240 Output: Urine 500 1700 Other: # Voids 2 - Labs CBC & Chem 7: 11/04/23 08:45 11/04/23 08:45 Labs: Abnormal Lab Results - Last 24 Hours (Table) 11/04/23 11/04/23 Range/Units 08:45 08:45 WBC 14.5 H (3.8-10.6) k/uL Neutrophils # 13.0 H (1.3-7.7) k/uL Lymphocytes # 0.8 L (1.0-4.8) k/uL Carbon Dioxide 20 L (22-30) mmol/L Creatinine 0.57 L (0.66-1.25) mg/dL Glucose 123 H (74-99) mg/dL Microbiology - Last 24 Hours (Table) 11/02/23 19:00 Blood Culture - Preliminary Blood 11/02/23 18:45 Blood Culture - Preliminary Blood
--- NOTE | 2023-11-05 09:16 | P.PN ---
Subjective Progress Note Date: 11/05/23 HISTORY OF PRESENT ILLNESS: This is a 58-year-old male with a previous medical history significant for hypertension and hypertensive cardiovascular disease, hyperlipidemia, history of patent foramen ovale, history of ischemic cerebrovascular accident in the past with left sided weakness, patient was recently hospitalized at [facility] with increased left upper quadrant abdominal pain to mid epigastric abdominal pain associated with increased nausea vomiting dry heaving as well as diaphoresis, associated with significant lactic acidosis at that time, he did have a CT scan of the abdomen pelvis at that time that showed only Patricia lithiasis without evidence of any cholecystitis, patient was admitted to the hospital at that time and he was treated with IV antibiotic as well as IV pain medication and antiemetics, and he was discharged home, he was seen in the office he was doing fine he was having episodes of this abdominal pain on and off this is the fourth episode over the last year or so, patient ended up going for a HIDA scan that was negative for acute cholecystitis or any cystic duct obstruction or biliary dyskinesia, I made an appointment for the patient to go s Dr. Velazco is a general surgery for evaluation and he is scheduled not till December or December of this year, patient apparently came to the emergency department today with significant left upper quadrant abdominal pain associated with diaphoresis nausea vomiting, he had a significant lactic acidosis, he did receive IV fluid resuscitation, he ended up started on IV pain medication in the form of Toradol, Dilaudid, morphine, droperidol, the patient is not feeling any better, added Toradol 15 mg IV push every 6 hours [id number], he was started also on IV antibiotic in the form of Unasyn, 3 g IV piggyback every 6 hours, patient will be seen in consultation by gastroenterology, as well as gene ral surgery Dr. Decker, patient did have a CT scan of the abdomen and pelvis that showed evidence of layering gallstones, with a stone at the cystic duct suggestive of possible cystic duct obstruction, we will continue IV fluid resuscitation in the form of normal saline at 130 cc an hour, continue Zofran 4 mg IV push every 6 hours, Protonix 40 mg IV push every 24 hours, hold off aspirin and Plavix for now, continue with Unasyn 3 g IV piggyback every 6 hours obtain blood culture, stool culture, patient and his stated that they were exposed possibly to Salmonella because they have lizards at home they have turtles water turtles at home as well and to have multiple chickens and they get at least 16 eggs on a daily basis and 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 That need to be done urgently. 11/02: Patient sitting up in bed, pain seems to be under better control today. Patient was seen today by both GI and surgery. GI has signed off. Awaiting result of ultrasound of gallbladder as well is surgical recommendation. Continue Unasyn 3 g every 6 hours. Continue current pain regimen. 11/03: Patient resting at this time states that his pain is 6 out of 10. He has had multiple episodes of nausea and vomiting today. Continue Reglan 10 mg IV push every 6 hours as needed as well is current pain regimen. Gallbladder ultrasound revealed acute cholecystitis, positive sonographic Unger sign, distended gallbladder and cholelithiasis. Plan is for lap sigrid on Monday, November 05. Continue Unasyn 3 g every 6 hours. Continue clear liquid diet and patient is to be NPO tomorrow at midnight. 11/04: Patient is in significant amount of pain in the abdomen he is ultrasound of the gallbladder showed evidence of acute cholecystitis, there is a suspicion for a cystic duct obstruction as the patient is doubled over in bed, he is in a lot of pain, I will switch his morphine to Dilaudid 1 mg IV push every 4 hours, continue IV fluid resuscitation, continue IV antibiotic, continue antiemetic, awaiting general surgery for laparoscopic cholecystectomy I hope will be done this soon as possible. REVIEW OF SYSTEMS: Constitutional: positive for documented fever, chills, poitive for night sweats. No weight change. No weakness, fatigue or lethargy. No daytime sleepiness. EENT: No headache. No blurred vision or double vision, no loss of vision. No loss of Hearing, no ringing in the ears, no dizziness. No nasal drainage or congestion. No epistaxis. No sore throat. Lungs: No shortness of breath, no cough, no sputum production. No wheezing. Reports dyspnea with activity. Cardiovascular: No chest pain, no lower extremity edema. No palpitations. No paroxysmal nocturnal dyspnea. No orthopnea. No lightheadedness or dizziness. No syncopal episodes. Abdominal: Reports abdominal pain. positive for nausea, vomiting. No diarrhea. No constipation. positive for bloody but no tarry stools reports loss of appetite. Genitourinary: No dysuria, increased frequency, urgency. No urinary retention. Musculoskeletal: No myalgias. left sided muscle weakness, no gait dysfunction, no frequent falls. No back pain. No neck pain. Integumentary: No wounds, no lesions. No rash or pruritus. No unusual bruising. No change in hair or nails. Neurologic: No aphasia. No facial droop. No change in mentation. No head injury. No headache. No paralysis. No paresthesia. Psychiatric: No depression. No anxiety. No mood swings. Endocrine: No abnormal blood sugars. No weight change. PHYSICAL EXAMINATION: General: This is a 58-year-old male laying down in bed in moderate distress. HEENT: Head is atraumatic, normocephalic, pupils were equal round reactive to light and recommendation, extraocular muscle movement were intact, sclera no nicteric, conjunctivae were pale, mucous membranes of the mouth are somewhat dry. Neck: Supple, no JVP, normal carotid upstroke bilaterally, no lymphadenopathy. Chest: Decreased breath sounds at the bases, few rhonchi, no expiratory wheezes, no chest wall tenderness, no intercostal retractions. Heart: First heart sound is normal, second heart sound is normal there is systolic ejection murmur 2/6 located in the left sternal border. Abdomen: Soft, moderate tenderness in the epigastric area and the left upper quadrant area no guarding or rebound tenderness, positive for bowel sounds. Extremities: There is no edema no calf tenderness DP +2 bilaterally. Neurologic examination: Patient is awake alert and oriented x3, cranial nerves II-12 appear grossly intact, left-sided weakness. ASSESSMENT AND PLAN: 1. Acute cholecystitis with cystic duct obstruction. Continue clear liquid diet. Continue Unasyn 3 g IV piggyback every 6 hours. Discontinue morphine start patient on Dilaudid 1 mg IV push every 4 hours as needed continue Toradol 15 mg IV push every 6 hours scheduled. Continue Zofran 4 mg IV push as needed and Reglan 10 mg IV push as needed. Plan is for lap sigrid on Monday. 2. Hypertension and hypertensive cardiovascular disease. Continue patient on lisinopril 20 mg orally twice every day, continue amlodipine and increased to 5 mg once every day, add metoprolol 50 mg orally twice every day, and hydralazine 20 mg IV push every 4 hours as needed for systolic blood pressure greater than 160 and diastolic blood pressure greater than 90 3. Mixed hyperlipidemia. Continue patient on atorvastatin 40 mg once every day, monitor lipid panel, keep LDL 55-70. 4. History of ischemic cerebrovascular accident in the past. Hold aspirin and Plavix. For surgical intervention on Monday 5. GERD with esophagitis. Continue patient on Protonix 40 mg IV push every 24 hours. 6. History of patent foramen ovale. Patient has been under the care of Dr. Gunn and the plan is to have a closure device when the patient gallbladder is taken out. 7. 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 Lactic acidosis likely related to sepsis. Resolved. 9. DVT prophylaxis. Lovenox 40 mg subcutaneous every 24 hours. 10. GI prophylaxis. Protonix 40 mg IV push every 24 hours. 11. Overall prognosis is guarded Objective - Vital Signs Vital signs: Vital Signs Temp 98.4 F 11/05/23 07:42 Pulse 76 11/05/23 07:42 Resp 18 11/05/23 07:42 BP 204/91 11/05/23 07:42 Pulse Ox 99 11/05/23 07:42 FiO2 Intake & Output 11/04/23 11/05/23 11/05/23 18:59 06:59 18:59 Intake Total 240 0 Output Total 1999 300 Balance -1760 -300 0 Intake: Oral 240 0 Output: Urine 1999 300 - Labs CBC & Chem 7: 11/04/23 08:45 11/04/23 08:45 Labs: Abnormal Lab Results - Last 24 Hours (Table) 11/04/23 11/04/23 Range/Units 08:45 08:45 WBC 14.5 H (3.8-10.6) k/uL Neutrophils # 13.0 H (1.3-7.7) k/uL Lymphocytes # 0.8 L (1.0-4.8) k/uL Carbon Dioxide 20 L (22-30) mmol/L Creatinine 0.57 L (0.66-1.25) mg/dL Glucose 123 H (74-99) mg/dL Microbiology - Last 24 Hours (Table) 11/02/23 19:00 Blood Culture - Preliminary Blood 11/02/23 18:45 Blood Culture - Preliminary Blood
[2023-11-05] MEDS: METOPROLOL TARTRATE 50 MG TAB PO SCH (09:34)
[2023-11-05] MEDS: amLODIPine 5 MG TAB PO SCH (09:34)
[2023-11-05] MEDS: HYDROmorphone 1 MG/ML 1 ML SYRINGE IVP PRN (09:35)
--- NOTE | 2023-11-05 18:32 | P.PN ---
Subjective Progress Note Date: 11/05/23 Patient tolerating clear liquid diet. He had an acute event of intractable nausea and vomiting earlier this morning which is now resolved. Reports having prior attacks several months ago. His history significant for stroke April 01 of last year due to "hole in my heart." Abdomen: Tender right upper quadrant. Studies: Ultrasound of the gallbladder independent reviewed demonstrates gallstone. Gallbladder wall without moderate thickening. This is my independent interpretation. Assessment: 1. Symptomatic gallstones Plan: 1. Due to the severity of his recurrent attacks, cholecystectomy advised. 2. Hold Plavix and blood thinners. 3. Patient is elevated risk for complications due to recent antiplatelet therapy for risk of bleeding Objective - Vital Signs Vital signs: Vital Signs Temp 98.4 F 11/05/23 07:42 Pulse 65 11/05/23 16:05 Resp 18 11/05/23 16:05 BP 146/71 11/05/23 16:05 Pulse Ox 97 11/05/23 16:05 FiO2 Intake & Output 11/04/23 11/05/23 11/05/23 18:59 06:59 18:59 Intake Total 240 0 Output Total 2000 300 500 Balance -1760 -300 -500 Intake: Oral 240 0 Output: Urine 2000 300 500 - Labs CBC & Chem 7: 11/04/23 08:45 11/04/23 08:45 Labs: Microbiology - Last 24 Hours (Table) 11/02/23 19:00 Blood Culture - Preliminary Blood 11/02/23 18:45 Blood Culture - Preliminary Blood
[2023-11-05] MEDS: LACTATED RINGERS 1,000 ML IV SCH (20:56)
[2023-11-06] MEDS ORDERED: HYDROmorphone 0.5 MG/0.5 ML SYRINGE IVP PRN (07:00)
[2023-11-06] MEDS: DEXAMETHASONE SOD PHOSPHATE 4 MG/ML 1 ML VIAL IV ONE (11:32)
[2023-11-06] MEDS: ONDANSETRON 4 MG/2 ML VIAL IVP ONE (11:32)
[2023-11-06 11:51] LABS: African American GFR (CKD) >90 (>60 ml/min/1.73 sqM); Anion Gap 7 mmol/L; Blood Urea Nitrogen 17 mg/dL (9-20); Calcium 8.7 mg/dL (8.4-10.2); Carbon Dioxide 24 mmol/L (22-30); Chloride 105 mmol/L (98-107); Glucose 99 mg/dL (74-99); Non-African American GFR(CKD) >90 (>60 ml/min/1.73 sqM); Potassium 3.3 mmol/L (3.5-5.1); Sodium 136 mmol/L (137-145)
[2023-11-06 11:57] LABS: Basophils # (A) 0.1 k/uL (0-0.2); Basophils % (A) 1 %; Eosinophils # (A) 0.2 k/uL (0-0.7); Eosinophils % (A) 2 %; HCT 42.9 % (39.0-53.0); HGB 14.7 gm/dL (13.0-17.5); Lymphocytes # (A) 1.9 k/uL (1.0-4.8); Lymphocytes % (A) 24 %; MCH 29.7 pg (25.0-35.0); MCHC 34.3 g/dL (31.0-37.0); MCV 86.6 fL (80.0-100.0); Monocytes # (A) 0.7 k/uL (0-1.0); Monocytes % (A) 9 %; Neutrophils # (A) 4.7 k/uL (1.3-7.7); Neutrophils % (A) 61 %; Platelet Count 337 k/uL (150-450); RBC 4.95 m/uL (4.30-5.90); RDW 12.7 % (11.5-15.5); WBC 7.8 k/uL (3.8-10.6)
[2023-11-06] MEDS: LACTATED RINGERS 1,000 ML IV SCH (11:58)
--- NOTE | 2023-11-06 12:38 | P.PN ---
Subjective Progress Note Date: 11/06/23 Principal diagnosis: Acute calculus cholecystitis Patient known to our service from previous gallbladder issues and previous endoscopy. Admitted with abdominal pain. Was recently hospitalized at [facility] as well. Pain is improved today. Pain has been in the right upper quadrant epigastric region with radiation to the back. Sometimes he has had some pain on the left side as well. He thinks that may be related to a fall he took recently. CAT scan reviewed and shows a small stone impacted in the cystic duct. White blood cell count has been elevated however normalized today. Transaminases normal. Objective - Vital Signs Vital signs: Vital Signs Temp 97.6 F 11/06/23 12:00 Pulse 52 L 11/06/23 12:00 Resp 16 11/06/23 12:00 BP 149/75 11/06/23 12:00 Pulse Ox 98 11/06/23 12:00 FiO2 Intake & Output 11/05/23 11/06/23 11/06/23 18:59 06:59 18:59 Intake Total 0 222 Output Total 500 200 Balance -500 22 Intake: Oral 0 222 Output: Urine 500 200 Other: # Voids 1 - Exam Abdomen: Soft, mild right upper quadrant tenderness nondistended - Labs CBC & Chem 7: 11/06/23 11:06 11/06/23 11:06 Labs: Abnormal Lab Results - Last 24 Hours (Table) 11/06/23 Range/Units 11:06 Sodium 136 L (137-145) mmol/L Potassium 3.3 L (3.5-5.1) mmol/L Microbiology - Last 24 Hours (Table) 11/02/23 19:00 Blood Culture - Preliminary Blood 11/02/23 18:45 Blood Culture - Preliminary Blood Assessment and Plan (1) Acute cholecystitis due to biliary calculus Narrative/Plan: 58-year-old male with acute cholecystitis. Patient requested I see him since we have met in the past. Will proceed with laparoscopic, possible open cholecy stectomy tomorrow. Risks of bleeding, infection, bile leak, bile duct injury, retained common bile duct stone, trocar injury, conversion to an open procedure, hernia, anesthesia related complications were reviewed. The patient understands and wishes to proceed. Current Visit: Yes Status: Acute Code(s): K80.00 - CALCULUS OF GALLBLADDER W ACUTE CHOLECYST W/O OBSTRUCTION SNOMED Code(s): [id number]
--- NOTE | 2023-11-06 12:56 | P.PN ---
Subjective Progress Note Date: 11/06/23 HISTORY OF PRESENT ILLNESS: This is a 58-year-old male with a previous medical history significant for hypertension and hypertensive cardiovascular disease, hyperlipidemia, history of patent foramen ovale, history of ischemic cerebrovascular accident in the past with left sided weakness, patient was recently hospitalized at [facility] with increased left upper quadrant abdominal pain to mid epigastric abdominal pain associated with increased nausea vomiting dry heaving as well as diaphoresis, associated with significant lactic acidosis at that time, he did have a CT scan of the abdomen pelvis at that time that showed only Patricia lithiasis without evidence of any cholecystitis, patient was admitted to the hospital at that time and he was treated with IV antibiotic as well as IV pain medication and antiemetics, and he was discharged home, he was seen in the office he was doing fine he was having episodes of this abdominal pain on and off this is the fourth episode over the last year or so, patient ended up going for a HIDA scan that was negative for acute cholecystitis or any cystic duct obstruction or biliary dyskinesia, I made an appointment for the patient to go s Dr. Velazco is a general surgery for evaluation and he is scheduled not till December or December of this year, patient apparently came to the emergency department today with significant left upper quadrant abdominal pain associated with diaphoresis nausea vomiting, he had a significant lactic acidosis, he did receive IV fluid resuscitation, he ended up started on IV pain medication in the form of Toradol, Dilaudid, morphine, droperidol, the patient is not feeling any better, added Toradol 15 mg IV push every 6 hours [id number], he was started also on IV antibiotic in the form of Unasyn, 3 g IV piggyback every 6 hours, patient will be seen in consultation by gastroenterology, as well as gene ral surgery Dr. Decker, patient did have a CT scan of the abdomen and pelvis that showed evidence of layering gallstones, with a stone at the cystic duct suggestive of possible cystic duct obstruction, we will continue IV fluid resuscitation in the form of normal saline at 130 cc an hour, continue Zofran 4 mg IV push every 6 hours, Protonix 40 mg IV push every 24 hours, hold off aspirin and Plavix for now, continue with Unasyn 3 g IV piggyback every 6 hours obtain blood culture, stool culture, patient and his stated that they were exposed possibly to Salmonella because they have lizards at home they have turtles water turtles at home as well and to have multiple chickens and they get at least 16 eggs on a daily basis and 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 That need to be done urgently. 11/02: Patient sitting up in bed, pain seems to be under better control today. Patient was seen today by both GI and surgery. GI has signed off. Awaiting result of ultrasound of gallbladder as well is surgical recommendation. Continue Unasyn 3 g every 6 hours. Continue current pain regimen. 11/03: Patient resting at this time states that his pain is 6 out of 10. He has had multiple episodes of nausea and vomiting today. Continue Reglan 10 mg IV push every 6 hours as needed as well is current pain regimen. Gallbladder ultrasound revealed acute cholecystitis, positive sonographic Unger sign, distended gallbladder and cholelithiasis. Plan is for lap sigrid on Monday, November 05. Continue Unasyn 3 g every 6 hours. Continue clear liquid diet and patient is to be NPO tomorrow at midnight. 11/04: Patient is in significant amount of pain in the abdomen he is ultrasound of the gallbladder showed evidence of acute cholecystitis, there is a suspicion for a cystic duct obstruction as the patient is doubled over in bed, he is in a lot of pain, I will switch his morphine to Dilaudid 1 mg IV push every 4 hours, continue IV fluid resuscitation, continue IV antibiotic, continue antiemetic, awaiting general surgery for laparoscopic cholecystectomy I hope will be done this soon as possible. 11/05: Patient is laying down in bed in no apparent distress, his female better today, since we adjusted his pain medication, he was seen earlier by general surgery, he scheduled to go for laparoscopic cholecystectomy tomorrow morning with Dr. Velazco, continue IV antibiotic, continue IV fluid resuscitation, patient appears to be slightly hypokalemic, we will replace his potassium he will be given potassium chloride 40 mill equivalent p.o. x 1, continue other britt atment plan as indicated, keep the patient off aspirin and Plavix, as to resume those immediately after surgery in 24 hours if okay with general surgery. REVIEW OF SYSTEMS: Constitutional: positive for documented fever, chills, poitive for night sweats. No weight change. No weakness, fatigue or lethargy. No daytime sleepiness. EENT: No headache. No blurred vision or double vision, no loss of vision. No loss of Hearing, no ringing in the ears, no dizziness. No nasal drainage or congestion. No epistaxis. No sore throat. Lungs: No shortness of breath, no cough, no sputum production. No wheezing. Reports dyspnea with activity. Cardiovascular: No chest pain, no lower extremity edema. No palpitations. No paroxysmal nocturnal dyspnea. No orthopnea. No lightheadedness or dizziness. No syncopal episodes. Abdominal: Reports abdominal pain. positive for nausea, vomiting. No diarrhea. No constipation. positive for bloody but no tarry stools reports loss of appetite. Genitourinary: No dysuria, increased frequency, urgency. No urinary retention. Musculoskeletal: No myalgias. left sided muscle weakness, no gait dysfunction, no frequent falls. No back pain. No neck pain. Integumentary: No wounds, no lesions. No rash or pruritus. No unusual bruising. No change in hair or nails. Neurologic: No aphasia. No facial droop. No change in mentation. No head injury. No headache. No paralysis. No paresthesia. Psychiatric: No depression. No anxiety. No mood swings. Endocrine: No abnormal blood sugars. No weight change. PHYSICAL EXAMINATION: General: This is a 58-year-old male laying down in bed in moderate distress. HEENT: Head is atraumatic, normocephalic, pupils were equal round reactive to light and recommendation, extraocular muscle movement were intact, sclera nonicteric, conjunctivae were pale, mucous membranes of the mouth are somewhat dry. Neck: Supple, no JVP, normal carotid upstroke bilaterally, no lymphadenopathy. Chest: Decreased breath sounds at the bases, few rhonchi, no expiratory wheezes, no chest wall tenderness, no intercostal retractions. Heart: First heart sound is normal, second heart sound is normal there is systolic ejection murmur 2/6 located in the left sternal border. Abdomen: Soft, moderate tenderness in the epigastric area and the left upper quadrant area no guarding or rebound tenderness, positive for bowel sounds. Extremities: There is no edema no calf tenderness DP +2 bilaterally. Neurologic examination: Patient is awake alert and oriented x3, cranial nerves II-12 appear grossly intact, left-sided weakness. ASSESSMENT AND PLAN: 1. Acute cholecystitis with cystic duct obstruction. Continue clear liquid diet. Continue Unasyn 3 g IV piggyback every 6 hours. Discontinue morphine start patient on Dilaudid 1 mg IV push every 4 hours as needed discontinue Toradol, continue Zofran 4 mg IV push as needed and Reglan 10 mg IV push as needed. Plan is for lap sigrid tomorrow morning. 2. Hypertension and hypertensive cardiovascular disease. Continue patient on lisinopril 20 mg orally twice every day, continue amlodipine and increased to 5 mg once every day, add metoprolol 50 mg orally twice every day, and hydralazine 20 mg IV push every 4 hours as needed for systolic blood pressure greater than 160 and diastolic blood pressure greater than 90 3. Mixed hyperlipidemia. Continue patient on atorvastatin 40 mg once every day, monitor lipid panel, keep LDL 55-70. 4. History of ischemic cerebrovascular accident in the past. Hold aspirin and Plavix. For surgical intervention on Monday 5. GERD with esophagitis. Continue patient on Protonix 40 mg IV push every 24 hours. 6. History of patent foramen ovale. Patient has been under the care of Dr. Gunn and the plan is to have a closure device when the patient gallbladder is taken out. 7. 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 Lactic acidosis likely related to sepsis. Resolved. 9. DVT prophylaxis. Lovenox 40 mg subcutaneous every 24 hours. 10. GI prophylaxis. Protonix 40 mg IV push every 24 hours. 11. laparoscopic cholecystectomy tomorrow morning. Objective - Vital Signs Vital signs: Vital Signs Temp 97.6 F 11/06/23 12:00 Pulse 52 L 11/06/23 12:00 Resp 16 11/06/23 12:00 BP 149/75 11/06/23 12:00 Pulse Ox 98 11/06/23 12:00 FiO2 Intake & Output 11/05/23 11/06/23 11/06/23 18:59 06:59 18:59 Intake Total 0 222 Output Total 500 200 Balance -500 22 Intake: Oral 0 222 Output: Urine 500 200 Other: # Voids 1 - Labs CBC & Chem 7: 11/06/23 11:06 11/06/23 11:06 Labs: Abnormal Lab Results - Last 24 Hours (Table) 11/06/23 Range/Units 11:06 Sodium 136 L (137-145) mmol/L Potassium 3.3 L (3.5-5.1) mmol/L Microbiology - Last 24 Hours (Table) 11/02/23 19:00 Blood Culture - Preliminary Blood 11/02/23 18:45 Blood Culture - Preliminary Blood
[2023-11-06] MEDS: POTASSIUM CHLORIDE ER 20 MEQ TAB.ER PO STA (13:00)
[2023-11-06] MEDS: hydrALAZINE HCL 20 MG/ML 1 ML VIAL IVP PRN (17:42)
[2023-11-07] MEDS ORDERED: HYDROmorphone 0.5 MG/0.5 ML SYRINGE IVP PRN (07:00)
[2023-11-07] MEDS: DEXAMETHASONE SOD PHOSPHATE 4 MG/ML 1 ML VIAL IV ONE (08:17)
[2023-11-07] MEDS: ONDANSETRON 4 MG/2 ML VIAL IVP ONE ×2 (08:17→13:44)
[2023-11-07 09:22] LABS: African American GFR (CKD) >90 (>60 ml/min/1.73 sqM); Anion Gap 3 mmol/L; Blood Urea Nitrogen 15 mg/dL (9-20); Calcium 8.9 mg/dL (8.4-10.2); Carbon Dioxide 29 mmol/L (22-30); Chloride 106 mmol/L (98-107); Glucose 104 mg/dL (74-99); Non-African American GFR(CKD) >90 (>60 ml/min/1.73 sqM); Potassium 3.5 mmol/L (3.5-5.1); Sodium 138 mmol/L (137-145)
--- NOTE | 2023-11-07 12:54 | P.PN ---
Subjective Progress Note Date: 11/07/23 HISTORY OF PRESENT ILLNESS: This is a 58-year-old male with a previous medical history significant for hypertension and hypertensive cardiovascular disease, hyperlipidemia, history of patent foramen ovale, history of ischemic cerebrovascular accident in the past with left sided weakness, patient was recently hospitalized at [facility] with increased left upper quadrant abdominal pain to mid epigastric abdominal pain associated with increased nausea vomiting dry heaving as well as diaphoresis, associated with significant lactic acidosis at that time, he did have a CT scan of the abdomen pelvis at that time that showed only Patricia lithiasis without evidence of any cholecystitis, patient was admitted to the hospital at that time and he was treated with IV antibiotic as well as IV pain medication and antiemetics, and he was discharged home, he was seen in the office he was doing fine he was having episodes of this abdominal pain on and off this is the fourth episode over the last year or so, patient ended up going for a HIDA scan that was negative for acute cholecystitis or any cystic duct obstruction or biliary dyskinesia, I made an appointment for the patient to go s Dr. Velazco is a general surgery for evaluation and he is scheduled not till December or December of this year, patient apparently came to the emergency department today with significant left upper quadrant abdominal pain associated with diaphoresis nausea vomiting, he had a significant lactic acidosis, he did receive IV fluid resuscitation, he ended up started on IV pain medication in the form of Toradol, Dilaudid, morphine, droperidol, the patient is not feeling any better, added Toradol 15 mg IV push every 6 hours [id number], he was started also on IV antibiotic in the form of Unasyn, 3 g IV piggyback every 6 hours, patient will be seen in consultation by gastroenterology, as well as gene ral surgery Dr. Decker, patient did have a CT scan of the abdomen and pelvis that showed evidence of layering gallstones, with a stone at the cystic duct suggestive of possible cystic duct obstruction, we will continue IV fluid resuscitation in the form of normal saline at 130 cc an hour, continue Zofran 4 mg IV push every 6 hours, Protonix 40 mg IV push every 24 hours, hold off aspirin and Plavix for now, continue with Unasyn 3 g IV piggyback every 6 hours obtain blood culture, stool culture, patient and his stated that they were exposed possibly to Salmonella because they have lizards at home they have turtles water turtles at home as well and to have multiple chickens and they get at least 16 eggs on a daily basis and 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 That need to be done urgently. 11/02: Patient sitting up in bed, pain seems to be under better control today. Patient was seen today by both GI and surgery. GI has signed off. Awaiting result of ultrasound of gallbladder as well is surgical recommendation. Continue Unasyn 3 g every 6 hours. Continue current pain regimen. 11/03: Patient resting at this time states that his pain is 6 out of 10. He has had multiple episodes of nausea and vomiting today. Continue Reglan 10 mg IV push every 6 hours as needed as well is current pain regimen. Gallbladder ultrasound revealed acute cholecystitis, positive sonographic Unger sign, distended gallbladder and cholelithiasis. Plan is for lap sigrid on Monday, November 05. Continue Unasyn 3 g every 6 hours. Continue clear liquid diet and patient is to be NPO tomorrow at midnight. 11/04: Patient is in significant amount of pain in the abdomen he is ultrasound of the gallbladder showed evidence of acute cholecystitis, there is a suspicion for a cystic duct obstruction as the patient is doubled over in bed, he is in a lot of pain, I will switch his morphine to Dilaudid 1 mg IV push every 4 hours, continue IV fluid resuscitation, continue IV antibiotic, continue antiemetic, awaiting general surgery for laparoscopic cholecystectomy I hope will be done this soon as possible. 11/05: Patient is laying down in bed in no apparent distress, his female better today, since we adjusted his pain medication, he was seen earlier by general surgery, he scheduled to go for laparoscopic cholecystectomy tomorrow morning with Dr. Velazco, continue IV antibiotic, continue IV fluid resuscitation, patient appears to be slightly hypokalemic, we will replace his potassium he will be given potassium chloride 40 mill equivalent p.o. x 1, continue other britt atment plan as indicated, keep the patient off aspirin and Plavix, as to resume those immediately after surgery in 24 hours if okay with general surgery. 11/06: Patient is sitting up in his recliner, he is a bit upset today, because has been waiting for his surgery for since , I spoke with Dr. Velazco personally and he stated that the patient is going for laparoscopic cholecystectomy later on today, keep the patient on nothing per mouth, continue IV fluid resuscitation, continue IV antibiotic, I reviewed his laboratory evaluation appears to be within normal, keep the patient off Toradol for now, I will follow-up with the patient very closely after surgery patient will likely be discharged home in the next 24 hours. REVIEW OF SYSTEMS: Constitutional: positive for documented fever, chills, poitive for night sweats. No weight change. No weakness, fatigue or lethargy. No daytime sleepiness. EENT: No headache. No blurred vision or double vision, no loss of vision. No loss of Hearing, no ringing in the ears, no dizziness. No nasal drainage or congestion. No epistaxis. No sore throat. Lungs: No shortness of breath, no cough, no sputum production. No wheezing. Reports dyspnea with activity. Cardiovascular: No chest pain, no lower extremity edema. No palpitations. No paroxysmal nocturnal dyspnea. No orthopnea. No lightheadedness or dizziness. No syncopal episodes. Abdominal: Reports abdominal pain. positive for nausea, vomiting. No diarrhea. No constipation. positive for bloody but no tarry stools reports loss of appetite. Genitourinary: No dysuria, increased frequency, urgency. No urinary retention. Musculoskeletal: No myalgias. left sided muscle weakness, no gait dysfunction, no frequent falls. No back pain. No neck pain. Integumentary: No wounds, no lesions. No rash or pruritus. No unusual bruising. No change in hair or nails. Neurologic: No aphasia. No facial droop. No change in mentation. No head injury. No headache. No paralysis. No paresthesia. Psychiatric: No depression. No anxiety. No mood swings. Endocrine: No abnormal blood sugars. No weight change. PHYSICAL EXAMINATION: General: This is a 58-year-old male laying down in bed in moderate distress. HEENT: Head is atraumatic, normocephalic, pupils were equal round reactive to light and recommendation, extraocular muscle movement were intact, sclera nonict valeria, conjunctivae were pale, mucous membranes of the mouth are somewhat dry. Neck: Supple, no JVP, normal carotid upstroke bilaterally, no lymphadenopathy. Chest: Decreased breath sounds at the bases, few rhonchi, no expiratory wheezes, no chest wall tenderness, no intercostal retractions. Heart: First heart sound is normal, second heart sound is normal there is systolic ejection murmur 2/6 located in the left sternal border. Abdomen: Soft, moderate tenderness in the epigastric area and the left upper quadrant area no guarding or rebound tenderness, positive for bowel sounds. Extremities: There is no edema no calf tenderness DP +2 bilaterally. Neurologic examination: Patient is awake alert and oriented x3, cranial nerves II-12 appear grossly intact, left-sided weakness. ASSESSMENT AND PLAN: 1. Acute cholecystitis with cystic duct obstruction. Continue clear liquid diet. Continue Unasyn 3 g IV piggyback every 6 hours. Discontinue morphine start patient on Dilaudid 1 mg IV push every 4 hours as needed discontinue Toradol, continue Zofran 4 mg IV push as needed and Reglan 10 mg IV push as needed. Plan is for lap sigrid today. 2. Hypertension and hypertensive cardiovascular disease. Continue patient on lisinopril 20 mg orally twice every day, continue amlodipine and increased to 5 mg once every day, add metoprolol 50 mg orally twice every day, and hydralazine 20 mg IV push every 4 hours as needed for systolic blood pressure greater than 160 and diastolic blood pressure greater than 90 3. Mixed hyperlipidemia. Continue patient on atorvastatin 40 mg once every day, monitor lipid panel, keep LDL 55-70. 4. History of ischemic cerebrovascular accident in the past. Hold aspirin and Plavix. For surgical intervention on Monday 5. GERD with esophagitis. Continue patient on Protonix 40 mg IV push every 24 hours. 6. History of patent foramen ovale. Patient has been under the care of Dr. Gunn and the plan is to have a closure device when the patient gallbladder is taken out. 7. 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 Lactic acidosis likely related to sepsis. Resolved. 9. DVT prophylaxis. Lovenox 40 mg subcutaneous every 24 hours. 10. GI prophylaxis. Protonix 40 mg IV push every 24 hours. 11. If everything goes well patient can be discharged home in the next 24 hours. Objective - Vital Signs Vital signs: Vital Signs Temp 97.6 F 11/07/23 07:59 Pulse 62 11/07/23 08:00 Resp 16 11/07/23 08:00 BP 175/82 11/07/23 07:59 Pulse Ox 98 11/07/23 07:59 FiO2 Intake & Output 11/06/23 11/07/23 11/07/23 18:59 06:59 18:59 Intake Total 222 Output Total 200 650 Balance 22 -650 Intake: Oral 222 Output: Urine 200 650 Other: # Voids 2 - Labs CBC & Chem 7: 11/06/23 11:06 11/07/23 08:45 Labs: Abnormal Lab Results - Last 24 Hours (Table) 11/06/23 11/07/23 Range/Units 11:06 08:45 Sodium 136 L (137-145) mmol/L Potassium 3.3 L (3.5-5.1) mmol/L Glucose 104 H (74-99) mg/dL
[2023-11-07] MEDS: DEXAMETHASONE SOD PHOSPHATE 4 MG/ML 1 ML VIAL IVP ONE (13:44)
[2023-11-07] MEDS: HEPARIN SODIUM,PORCINE 5,000 UNIT/ML 1 ML VIAL SQ ONE (13:48)
[2023-11-07] MEDS ORDERED: fentaNYL (PF) 50 MCG/ML 2 ML AMP ONE (14:16)
[2023-11-07] MEDS ORDERED: MIDAZOLAM 2 MG/2 ML VIAL ONE (14:16)
[2023-11-07] MEDS ORDERED: GLYCOPYRROLATE 0.2 MG/ML 2 ML VIAL ONE (14:16)
[2023-11-07] MEDS ORDERED: LIDOCAINE 1% INJ 10MG/ML (20 ML MDV) ONE (14:16)
[2023-11-07] MEDS ORDERED: HYDROmorphone (PF) 1 MG/ML ONE (14:16)
[2023-11-07] MEDS ORDERED: PROPOFOL 10 MG/ML 20 ML VIAL IV ONE (14:16)
[2023-11-07] MEDS ORDERED: NEOSTIGMINE 1 MG/ML 10 ML VIAL ONE (14:16)
[2023-11-07] MEDS ORDERED: hydrALAZINE HCL 20 MG/ML 1 ML VIAL ONE (14:16)
[2023-11-07] MEDS ORDERED: ROCURONIUM 10 MG/ML (5 ML VIAL) IV ONE (14:16)
[2023-11-07] MEDS: BUPIVACAINE (PF) 0.25% 30 ML VIAL SQ ONE (14:51)
[2023-11-07] MEDS: LACTATED RINGERS 1,000 ML IV ONE (15:18)
--- NOTE | 2023-11-07 15:34 | P.OP ---
Date of Procedure: 11/07/23 Procedure(s) Performed: PREOPERATIVE DIAGNOSIS: Acute calculus cholecystitis POSTOPERATIVE DIAGNOSIS: Same PROCEDURE: Laparoscopic cholecystectomy SURGEON: Brianne EBL: 20 cc ANESTHESIA: Gen. COMPLICATIONS: None OPERATIVE PROCEDURE: The patient was brought and placed on the operating room table in the supine position. The patient was placed under general anesthesia at that time. The abdomen was prepped and draped in the usual sterile fashion. A small vertical infraumbilical incision was made. The fascia was grasped with the Mookie forceps. The fascia was retracted anteriorly. The Veress needle was advanced into the peritoneal cavity. The saline drop test was normal. Insufflation took place up to 15 mmHg. A 5 mm optical trocar was advanced and the peritoneal cavity. 2 additional 5 mm trochars were placed in the right upper quadrant under direct visualization. A 12 mm trocar was advanced into the epigastric incision site. The gallbladder was inflamed. The pericolonic fat was adherent to the gallbladder and this was dissected using mostly electrocautery. The gallbladder was retracted superiorly and laterally. The peritoneum overlying the infundibulum was bluntly dissected. The patient's cystic duct was visualized. The junction between the cystic duct common and hepatic duct was identified. The critical view of safety was achieved after blunt dissection. No stone was palpated in the cystic duct. The cystic duct was then divided after placement of 3 12 mm clips on the patient's side and one on the specimen side. The cystic artery was identified and clipped as well. A small vessel was seen along the gallbladder fossa and clipped as well. The gallbladder was then removed from the liver bed using electrocautery. The gallbladder was then removed from the epigastric trocar site with an Endo Catch bag. The gallbladder fossa was irrigated with saline. There was no evidence of any bleeding or biliary drainage seen. The fascia at the 12 millimeter site was closed using a Nitish-Chad 0 Vicryl stitch. The trochars were then removed. The skin at all 4 sites was closed using a 4-0 Monocryl stitch. Skin glue was utilized on the incision sites. At the end of this procedure the sponge and needle counts were correct. DISPOSITION: Stable to the recovery room
[2023-11-07 16:45] VITALS: RESP 16
[2023-11-08] MEDS: DOCUSATE 100 MG CAP PO PRN (02:59)
--- NOTE | 2023-11-08 10:02 | P.PN ---
Subjective Progress Note Date: 11/08/23 CHIEF COMPLAINT: Acute calculus cholecystitis HISTORY OF PRESENT ILLNESS: Patient is postop day #1 status post laparoscopic cholecystectomy. Patient complains of abdominal pain, burping and having hiccups during the night. Patient reports he just received pain medication pain is improving. No nausea or vomiting. He is cut back on what he was eating due to the hiccups and burping. Patient is sitting at bedside chair. He has not been ambulating. Afebrile. Labs for today pending PHYSICAL EXAM: VITAL SIGNS: Reviewed. GENERAL: Well-developed in no acute distress. ABDOMEN: Soft. Nondistended. Tenderness at incision sites. Incision sites clean dry and intact NEUROLOGIC: Alert and oriented. Cranial nerves II through XII grossly intact. ASSESSMENT: 1. Acute calculus cholecystitis PLAN: -Encourage patient to ambulate -Due to stroke history and some difficulty with walking PT OT consulted to help ambulate patient -Added oral [place] every 4 hours as needed for pain -Continue low-fat diet. Educated patient to go slowly with diet -Continue antibiotics for now Physician Trestle Builder note has been reviewed by physician. Signing provider agrees with the documented findings, assessment, and plan of care. I have personally seen and examined the patient, reviewed the SOCIAL MEDIA CAMPAIGN MANAGER /PAs history, exam and MDM and agree with the assessment and plan as written. Based on total visit time, I have performed more than 50% of the visit. As above: Patient describing constipation. Says he has not had a bowel movement since . Feels nauseous. Some increased abdominal discomfort this morning. He has been ambulating. Gradually advance diet as tolerated. Stool softeners already provided. Possible discharge later today if doing better. Objective - Vital Signs Vital signs: Vital Signs Temp 97.2 F L 11/08/23 08:00 Pulse 61 11/08/23 08:00 Resp 16 11/08/23 08:00 BP 145/64 11/08/23 08:00 Pulse Ox 98 11/08/23 08:00 FiO2 Intake & Output 11/07/23 11/08/23 11/08/23 18:59 06:59 18:59 Intake Total 1640 90 Output Total 1370 1050 200 Balance 270 -1050 -110 Intake: IV 1400 Oral 240 90 Output: Urine 1350 1050 200 Estimated Blood Loss 20 Other: Voiding Method Urinal # Voids 1 - Labs CBC & Chem 7: 11/06/23 11:06 11/08/23 09:54 Labs: Microbiology - Last 24 Hours (Table) 11/02/23 19:00 Blood Culture - Final Blood 11/02/23 18:45 Blood Culture - Final Blood
[2023-11-08 11:36] LABS: ALT 27 U/L (4-49); AST 28 U/L (17-59); African American GFR (CKD) >90 (>60 ml/min/1.73 sqM); Albumin 3.4 g/dL (3.5-5.0); Alkaline Phosphatase 49 U/L (38-126); Anion Gap 9 mmol/L; Blood Urea Nitrogen 15 mg/dL (9-20); Calcium 8.5 mg/dL (8.4-10.2); Carbon Dioxide 21 mmol/L (22-30); Chloride 105 mmol/L (98-107); Glucose 118 mg/dL (74-99); Non-African American GFR(CKD) >90 (>60 ml/min/1.73 sqM); Potassium 3.1 mmol/L (3.5-5.1); Sodium 135 mmol/L (137-145); Total Protein 5.7 g/dL (6.3-8.2)
[2023-11-08 11:56] LABS: Basophils % (A) 0 %; Eosinophils % (A) 0 %; HCT 32.6 % (39.0-53.0); Lymphocytes # (A) 1.1 k/uL (1.0-4.8); Lymphocytes % (A) 8 %; MCH 30.5 pg (25.0-35.0); MCHC 34.7 g/dL (31.0-37.0); MCV 87.8 fL (80.0-100.0); Mean Platelet Volume 7.7; Monocytes # (A) 1.1 k/uL (0-1.0); Monocytes % (A) 8 %; Neutrophils # (A) 11.3 k/uL (1.3-7.7); Neutrophils % (A) 82 %; Platelet Count 306 k/uL (150-450); RBC 3.71 m/uL (4.30-5.90); RDW 13.4 % (11.5-15.5); WBC 13.7 k/uL (3.8-10.6)
[2023-11-08 11:58] LABS: HGB 11.3 gm/dL (13.0-17.5)
[2023-11-08] MEDS: POTASSIUM CHLORIDE ER 20 MEQ TAB.ER PO STA (15:02)
[2023-11-08] MEDS: HYDROcodone/APAP 5-325MG 1 EACH TAB PO PRN (18:01)
--- NOTE | 2023-11-08 20:30 | P.PN ---
Subjective Progress Note Date: 11/08/23 HISTORY OF PRESENT ILLNESS: This is a 58-year-old male with a previous medical history significant for hypertension and hypertensive cardiovascular disease, hyperlipidemia, history of patent foramen ovale, history of ischemic cerebrovascular accident in the past with left sided weakness, patient was recently hospitalized at [facility] with increased left upper quadrant abdominal pain to mid epigastric abdominal pain associated with increased nausea vomiting dry heaving as well as diaphoresis, associated with significant lactic acidosis at that time, he did have a CT scan of the abdomen pelvis at that time that showed only Patricia lithiasis without evidence of any cholecystitis, patient was admitted to the hospital at that time and he was treated with IV antibiotic as well as IV pain medication and antiemetics, and he was discharged home, he was seen in the office he was doing fine he was having episodes of this abdominal pain on and off this is the fourth episode over the last year or so, patient ended up going for a HIDA scan that was negative for acute cholecystitis or any cystic duct obstruction or biliary dyskinesia, I made an appointment for the patient to go s Dr. Velazco is a general surgery for evaluation and he is scheduled not till December or December of this year, patient apparently came to the emergency department today with significant left upper quadrant abdominal pain associated with diaphoresis nausea vomiting, he had a significant lactic acidosis, he did receive IV fluid resuscitation, he ended up started on IV pain medication in the form of Toradol, Dilaudid, morphine, droperidol, the patient is not feeling any better, added Toradol 15 mg IV push every 6 hours [id number], he was started also on IV antibiotic in the form of Unasyn, 3 g IV piggyback every 6 hours, patient will be seen in consultation by gastroenterology, as well as gene ral surgery Dr. Decker, patient did have a CT scan of the abdomen and pelvis that showed evidence of layering gallstones, with a stone at the cystic duct suggestive of possible cystic duct obstruction, we will continue IV fluid resuscitation in the form of normal saline at 130 cc an hour, continue Zofran 4 mg IV push every 6 hours, Protonix 40 mg IV push every 24 hours, hold off aspirin and Plavix for now, continue with Unasyn 3 g IV piggyback every 6 hours obtain blood culture, stool culture, patient and his stated that they were exposed possibly to Salmonella because they have lizards at home they have turtles water turtles at home as well and to have multiple chickens and they get at least 16 eggs on a daily basis and 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 That need to be done urgently. 11/02: Patient sitting up in bed, pain seems to be under better control today. Patient was seen today by both GI and surgery. GI has signed off. Awaiting result of ultrasound of gallbladder as well is surgical recommendation. Continue Unasyn 3 g every 6 hours. Continue current pain regimen. 11/03: Patient resting at this time states that his pain is 6 out of 10. He has had multiple episodes of nausea and vomiting today. Continue Reglan 10 mg IV push every 6 hours as needed as well is current pain regimen. Gallbladder ultrasound revealed acute cholecystitis, positive sonographic Unger sign, distended gallbladder and cholelithiasis. Plan is for lap sigrid on Monday, November 05. Continue Unasyn 3 g every 6 hours. Continue clear liquid diet and patient is to be NPO tomorrow at midnight. 11/04: Patient is in significant amount of pain in the abdomen he is ultrasound of the gallbladder showed evidence of acute cholecystitis, there is a suspicion for a cystic duct obstruction as the patient is doubled over in bed, he is in a lot of pain, I will switch his morphine to Dilaudid 1 mg IV push every 4 hours, continue IV fluid resuscitation, continue IV antibiotic, continue antiemetic, awaiting general surgery for laparoscopic cholecystectomy I hope will be done this soon as possible. 11/05: Patient is laying down in bed in no apparent distress, his female better today, since we adjusted his pain medication, he was seen earlier by general surgery, he scheduled to go for laparoscopic cholecystectomy tomorrow morning with Dr. Velazco, continue IV antibiotic, continue IV fluid resuscitation, patient appears to be slightly hypokalemic, we will replace his potassium he will be given potassium chloride 40 mill equivalent p.o. x 1, continue other britt atment plan as indicated, keep the patient off aspirin and Plavix, as to resume those immediately after surgery in 24 hours if okay with general surgery. 11/06: Patient is sitting up in his recliner, he is a bit upset today, because has been waiting for his surgery for since , I spoke with Dr. Velazco personally and he stated that the patient is going for laparoscopic cholecystectomy later on today, keep the patient on nothing per mouth, continue IV fluid resuscitation, continue IV antibiotic, I reviewed his laboratory evaluation appears to be within normal, keep the patient off Toradol for now, I will follow-up with the patient very closely after surgery patient will likely be discharged home in the next 24 hours. 11/07: Patient is sitting up in bed he is feeling a bit better today, he continues to have some pain, he has been started on hydrocodone for pain control, he will be seen in consultation by physical therapy for ambulation, I will keep the patient in the hospital for another 24 hours, continue Unasyn 3 g IV piggyback every 6 hours, continue antinausea medicine, continue low-fat diet, increase activity and hopefully will discharge home tomorrow morning. REVIEW OF SYSTEMS: Constitutional: positive for documented fever, chills, poitive for night sweats. No weight change. No weakness, fatigue or lethargy. No daytime sleepiness. EENT: No headache. No blurred vision or double vision, no loss of vision. No loss of Hearing, no ringing in the ears, no dizziness. No nasal drainage or congestion. No epistaxis. No sore throat. Lungs: No shortness of breath, no cough, no sputum production. No wheezing. Reports dyspnea with activity. Cardiovascular: No chest pain, no lower extremity edema. No palpitations. No paroxysmal nocturnal dyspnea. No orthopnea. No lightheadedness or dizziness. No syncopal episodes. Abdominal: Reports abdominal pain. positive for nausea, vomiting. No diarrhea. No constipation. positive for bloody but no tarry stools reports loss of appetite. Genitourinary: No dysuria, increased frequency, urgency. No urinary retention. Musculoskeletal: No myalgias. left sided muscle weakness, no gait dysfunction, no frequent falls. No back pain. No neck pain. Integumentary: No wounds, no lesions. No rash or pruritus. No unusual bruising. No change in hair or nails. Neurologic: No aphasia. No facial droop. No change in mentation. No head injury. No headache. No paralysis. No paresthesia. Psychiatric: No depression. No anxiety. No mood swings. Endocrine: No abnormal blood sugars. No weight change. PHYSICAL EXAMINATION: General: This is a 58-year-old male laying down in bed in moderate distress. HEENT: Head is atraumatic, normocephalic, pupils were equal round reactive to light and recommendation, extraocular muscle movement were intact, sclera nonicteric, conjunctivae were pale, mucous membranes of the mouth are somewhat dry. Neck: Supple, no JVP, normal carotid upstroke bilaterally, no lymphadenopathy. Chest: Decreased breath sounds at the bases, few rhonchi, no expiratory wheezes, no chest wall tenderness, no intercostal retractions. Heart: First heart sound is normal, second heart sound is normal there is systolic ejection murmur 2/6 located in the left sternal border. Abdomen: Soft, moderate tenderness in the epigastric area and the left upper quadrant area no guarding or rebound tenderness, positive for bowel sounds. Extremities: There is no edema no calf tenderness DP +2 bilaterally. Neurologic examination: Patient is awake alert and oriented x3, cranial nerves II-12 appear grossly intact, left-sided weakness. ASSESSMENT AND PLAN: 1. Postoperative day #1 status post laparoscopic cholecystectomy. Continue current pain management, continue IV antibiotic in the form of Unasyn 3 g IV piggyback every 6 hours, continue IV fluid resuscitation, continue low-fat diet, increase activity, patient can be discharged home hopefully in the next 24 hours. 2. Hypertension and hypertensive cardiovascular disease. Continue patient on lisinopril 20 mg orally twice every day, continue amlodipine and increased to 5 mg once every day, add metoprolol 50 mg orally twice every day, and hydralazine 20 mg IV push every 4 hours as needed for systolic blood pressure greater than 160 and diastolic blood pressure greater than 90 3. Mixed hyperlipidemia. Continue patient on atorvastatin 40 mg once every day, monitor lipid panel, keep LDL 55-70. 4. History of ischemic cerebrovascular accident in the past. Hold aspirin and Plavix. For surgical intervention on Monday 5. GERD with esophagitis. Continue patient on Protonix 40 mg IV push every 24 hours. 6. History of patent foramen ovale. Patient has been under the care of Dr. Gunn and the plan is to have a closure device when the patient gallbladder is taken out. 7. 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 Lactic acidosis likely related to sepsis. Resolved. 9. DVT prophylaxis. Lovenox 40 mg subcutaneous every 24 hours. 10. GI prophylaxis. Protonix 40 mg IV push every 24 hours. 11. likely home tomorrow morning. Objective - Vital Signs Vital signs: Vital Signs Temp 98.7 F 11/08/23 12:00 Pulse 68 11/08/23 13:21 Resp 16 11/08/23 13:21 BP 119/64 11/08/23 12:00 Pulse Ox 98 11/08/23 12:00 FiO2 Intake & Output 11/07/23 11/08/23 11/08/23 18:59 06:59 18:59 Intake Total 1640 90 Output Total 1370 1050 200 Balance 270 -1050 -110 Intake: IV 1400 Oral 240 90 Output: Urine 1350 1050 200 Estimated Blood Loss 20 Other: Voiding Method Urinal Urinal # Voids 1 - Labs CBC & Chem 7: 11/08/23 09:54 11/08/23 09:54 Labs: Abnormal Lab Results - Last 24 Hours (Table) 11/08/23 11/08/23 Range/Units 09:54 09:54 WBC 13.7 H (3.8-10.6) k/uL RBC 3.71 L (4.30-5.90) m/uL Hgb 11.3 L D (13.0-17.5) gm/dL Hct 32.6 L (39.0-53.0) % Neutrophils # 11.3 H (1.3-7.7) k/uL Monocytes # 1.1 H (0-1.0) k/uL Sodium 135 L (137-145) mmol/L Potassium 3.1 L (3.5-5.1) mmol/L Carbon Dioxide 21 L (22-30) mmol/L Glucose 118 H (74-99) mg/dL Total Protein 5.7 L (6.3-8.2) g/dL Albumin 3.4 L (3.5-5.0) g/dL Microbiology - Last 24 Hours (Table) 11/02/23 19:00 Blood Culture - Final Blood 11/02/23 18:45 Blood Culture - Final Blood
[2023-11-09 09:54] VITALS: TEMP 98.3
[2023-11-09 10:47] LABS: ALT 25 U/L (4-49); AST 25 U/L (17-59); African American GFR (CKD) >90 (>60 ml/min/1.73 sqM); Albumin 3.3 g/dL (3.5-5.0); Alkaline Phosphatase 50 U/L (38-126); Anion Gap 7 mmol/L; Blood Urea Nitrogen 15 mg/dL (9-20); Calcium 8.2 mg/dL (8.4-10.2); Carbon Dioxide 23 mmol/L (22-30); Chloride 104 mmol/L (98-107); Glucose 119 mg/dL (74-99); Non-African American GFR(CKD) >90 (>60 ml/min/1.73 sqM); Potassium 3.3 mmol/L (3.5-5.1); Sodium 134 mmol/L (137-145); Total Bilirubin 0.8 mg/dL (0.2-1.3); Total Protein 5.5 g/dL (6.3-8.2)
[2023-11-09 11:06] LABS: Basophils % (A) 0 %; Eosinophils # (A) 0.1 k/uL (0-0.7); Eosinophils % (A) 1 %; HCT 29.9 % (39.0-53.0); HGB 10.3 gm/dL (13.0-17.5); Lymphocytes # (A) 1.3 k/uL (1.0-4.8); Lymphocytes % (A) 12 %; MCH 30.8 pg (25.0-35.0); MCHC 34.5 g/dL (31.0-37.0); MCV 89.3 fL (80.0-100.0); Monocytes # (A) 0.7 k/uL (0-1.0); Monocytes % (A) 6 %; Neutrophils # (A) 8.1 k/uL (1.3-7.7); Neutrophils % (A) 79 %; Platelet Count 307 k/uL (150-450); RBC 3.35 m/uL (4.30-5.90); RDW 13.3 % (11.5-15.5); WBC 10.3 k/uL (3.8-10.6)
--- NOTE | 2023-11-09 11:31 | P.PN ---
Subjective Progress Note Date: 11/09/23 CHIEF COMPLAINT: Acute calculus cholecystitis HISTORY OF PRESENT ILLNESS: Patient is postop day #2 status post laparoscopic cholecystectomy. Patient reports that he is feeling better today. Denies any nausea or vomiting. Tolerating diet. Having flatus. No BM yet. Has been up and ambulating. He feels ready for discharge. Afebrile. WBC is down from 13.7-10.3 Hgb 10.3 platelets 307 sodium is 134 potassium 3.3 creatinine 0.65 PHYSICAL EXAM: VITAL SIGNS: Reviewed. GENERAL: Well-developed in no acute distress. ABDOMEN: Soft. Nondistended. Tenderness at incision sites. Incision sites clean dry and intact NEUROLOGIC: Alert and oriented. Cranial nerves II through XII grossly intact. ASSESSMENT: 1. Acute calculus cholecystitis 2. Hypokalemia PLAN: -Patient can be discharge from surgical standpoint when medically cleared -Continue his home pain medication -Encourage patient to ambulate -Replace potassium -Continue stool softeners Physician Director Of Donor Relations note has been reviewed by physician. Signing provider agrees with the documented findings, assessment, and plan of care. Objective - Vital Signs Vital signs: Vital Signs Temp 98.5 F 11/09/23 03:53 Pulse 69 11/09/23 03:53 Resp 16 11/09/23 03:53 BP 142/81 11/09/23 03:53 Pulse Ox 95 11/09/23 03:53 FiO2 Intake & Output 11/08/23 11/09/23 11/09/23 18:59 06:59 18:59 Intake Total 590 Output Total 200 300 Balance 390 -300 Intake: Oral 590 Output: Urine 200 300 Other: Voiding Method Urinal Urinal # Voids 2 - Labs CBC & Chem 7: 11/09/23 09:28 11/09/23 09:28 Labs: Abnormal Lab Results - Last 24 Hours (Table) 11/08/23 11/08/23 Range/Units 09:54 09:54 WBC 13.7 H (3.8-10.6) k/uL RBC 3.71 L (4.30-5.90) m/uL Hgb 11.3 L D (13.0-17.5) gm/dL Hct 32.6 L (39.0-53.0) % Neutrophils # 11.3 H (1.3-7.7) k/uL Monocytes # 1.1 H (0-1.0) k/uL Sodium 135 L (137-145) mmol/L Potassium 3.1 L (3.5-5.1) mmol/L Carbon Dioxide 21 L (22-30) mmol/L Glucose 118 H (74-99) mg/dL Total Protein 5.7 L (6.3-8.2) g/dL Albumin 3.4 L (3.5-5.0) g/dL
[2023-11-09] MEDS: POTASSIUM CHLORIDE ER 20 MEQ TAB.ER PO STA (11:37)
[2023-11-09 13:39] VITALS: BP 134/75; PULSE 60
[2023-11-09 14:25] VITALS: BMI 39.1
--- NOTE | 2023-11-09 18:45 | P.DS ---
Providers Date of admission: 11/02/23 12:21 Expected date of discharge: 11/09/23 Attending physician: Rebecca Winston Consults: 11/02/23 12:18 Consult Physician Urgent Consulting Provider: Kajal Feng Consult Reason/Comments: Severe abdominal pain Do you want consulting provider notified?: Yes 11/06/23 08:07 Consult Physician Routine Consulting Provider: Satinder Decker Consult Reason/Comments: Cholecystitis Do you want consulting provider notified?: Already Contacted Primary care physician: Rebecca Winston Hospital Course: HISTORY OF PRESENT ILLNESS: This is a 58-year-old male with a previous medical history significant for hypertension and hypertensive cardiovascular disease, hyperlipidemia, history of patent foramen ovale, history of ischemic cerebrovascular accident in the past with left sided weakness, patient was recently hospitalized at [facility] with increased left upper quadrant abdominal pain to mid epigastric abdominal pain associated with increased nausea vomiting dry heaving as well as diaphoresis, associated with significant lactic acidosis at that time, he did have a CT scan of the abdomen pelvis at that time that showed only Patricia lithiasis without evidence of any cholecystitis, patient was admitted to the hospital at that time and he was treated with IV antibiotic as well as IV pain medication and antiemetics, and he was discharged home, he was seen in the office he was doing fine he was having episodes of this abdominal pain on and off this is the fourth episode over the last year or so, patient ended up going for a HIDA scan that was negative for acute cholecystitis or any cystic duct obstruction or biliary dyskinesia, I made an appointment for the patient to go see Dr. Velazco is a general surgery for evaluation and he is scheduled not till December or December of this year, patient apparently came to the emergency department today with significant left upper quadrant abdominal pain associated with diaphoresis nausea vomiting, he had a significant lactic acidosis, he did receive IV fluid resuscitation, he ended up started on IV pain medication in the form of Toradol, Dilaudid, morphine, droperidol, the patient is not feeling any better, added Toradol 15 mg IV push every 6 hours [id number], he was started also on IV antibiotic in the form of Unasyn, 3 g IV piggyback every 6 hours, patient will be seen in consultation by gastroenterology, as well as general surgery Dr. Decker, patient did have a CT scan of the abdomen and pelvis that showed evidence of layering gallstones, with a stone at the cystic duct suggestive of possible cystic duct obstruction, we will continue IV fluid resuscitation in the form of normal saline at 130 cc an hour, continue Zofran 4 mg IV push every 6 hours, Protonix 40 mg IV push every 24 hours, hold off aspirin and Plavix for now, continue with Unasyn 3 g IV piggyback every 6 hours obtain blood culture, stool culture, patient and his stated that they were exposed possibly to Salmonella because they have lizards at home they have turtles water turtles at home as well and to have multiple chickens and they get at least 16 eggs on a daily basis and 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 That need to be done urgently. 11/02: Patient sitting up in bed, pain seems to be under better control today. Patient was seen today by both GI and surgery. GI has signed off. Awaiting result of ultrasound of gallbladder as well is surgical recommendation. Continue Unasyn 3 g every 6 hours. Continue current pain regimen. 11/03: Patient resting at this time states that his pain is 6 out of 10. He has had multiple episodes of nausea and vomiting today. Continue Reglan 10 mg IV push every 6 hours as needed as well is current pain regimen. Gallbladder ultrasound revealed acute cholecystitis, positive sonographic Unger sign, distended gallbladder and cholelithiasis. Plan is for lap sigrid on Monday, November 05. Continue Unasyn 3 g every 6 hours. Continue clear liquid diet and patient is to be NPO tomorrow at midnight. 11/04: Patient is in significant amount of pain in the abdomen he is ultrasound of the gallbladder showed evidence of acute cholecystitis, there is a suspicion for a cystic duct obstruction as the patient is doubled over in bed, he is in a lot of pain, I will switch his morphine to Dilaudid 1 mg IV push every 4 hours, continue IV fluid resuscitation, continue IV antibiotic, continue antiemetic, awaiting general surgery for laparoscopic cholecystectomy I hope will be done this soon as possible. 11/05: Patient is laying down in bed in no apparent distress, his female better today, since we adjusted his pain medication, he was seen earlier by general surgery, he scheduled to go for laparoscopic cholecystectomy tomorrow morning with Dr. Velazco, continue IV antibiotic, continue IV fluid resuscitation, patient appears to be slightly hypokalemic, we will replace his potassium he will be given potassium chloride 40 mill equivalent p.o. x 1, continue other treatment plan as indicated, keep the patient off aspirin and Plavix, as to resume those immediately after surgery in 24 hours if okay with general surgery. 11/06: Patient is sitting up in his recliner, he is a bit upset today, because has been waiting for his surgery for since , I spoke with Dr. Velazco personally and he stated that the patient is going for laparoscopic cholecystectomy later on today, keep the patient on nothing per mouth, continue IV fluid resuscitation, continue IV antibiotic, I reviewed his laboratory evaluation appears to be within normal, keep the patient off Toradol for now, I will follow-up with the patient very closely after surgery patient will likely be discharged home in the next 24 hours. 11/07: Patient is sitting up in bed he is feeling a bit better today, he continues to have some pain, he has been started on hydrocodone for pain control, he will be seen in consultation by physical therapy for ambulation, I will keep the patient in the hospital for another 24 hours, continue Unasyn 3 g IV piggyback every 6 hours, continue antinausea medicine, continue low-fat diet, increase activity and hopefully will discharge home tomorrow morning. 11/08: Patient sitting up in bed in no apparent distress, he is passing a lot of gas, he is moving around very well, he denies any chest pain, or shortness of breath, I will switch him from Unasyn to oral Augmentin, he will be discharged home today, and follow-up with me as an outpatient in the next week, he was cleared by general surgery to be discharged home today. Discharge diagnoses: 1. Postoperative day #2 status post laparoscopic cholecystectomy due to acute cholecystitis with cystic duct obstruction and recurrent biliary colic 2. Hypertension and hypertensive cardiovascular disease. 3. Mixed hyperlipidemia. 4. History of ischemic cerebrovascular accident in the past. 5. GERD with esophagitis. 6. History of patent foramen ovale. 7. Lactic acidosis likely related to sepsis. 8. 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 Patient Condition at Discharge: Stable Plan - Discharge Summary Discharge Rx Participant: Yes New Discharge Prescriptions: New Docusate [Colace] 100 mg PO BID #30 capsule Metoprolol Tartrate [Lopressor] 50 mg PO BID #60 tab Docusate [Colace] 100 mg PO DAILY PRN cap PRN Reason: Constipation HYDROcodone/APAP 5-325MG [[place] 5-325] 1 each PO Q4HR PRN tab PRN Reason: Pain Amoxic-Pot Clav 875-125Mg [Augmentin 875-125] 1 tab PO BID 7 Days #14 tab Continue amLODIPine [Norvasc] 2.5 mg PO DAILY lisinopriL [Zestril] 20 mg PO BID #60 tab Aspirin EC [Ecotrin Low Dose] 81 mg PO DAILY Pregabalin [Lyrica] 150 mg PO BID Ezetimibe [Zetia] 10 mg PO DAILY HYDROcodone/APAP 5-325MG [[place] 5-325] 1 tab PO Q12H PRN PRN Reason: Pain Clopidogrel [Plavix] 75 mg PO DAILY #28 tab traMADol HCL 50 mg PO BID PRN PRN Reason: Pain methocarbamoL [Robaxin-750] 750 mg PO BID Rosuvastatin [Crestor] 20 mg PO HS Discharge Medication List amLODIPine [Norvasc] 2.5 mg PO DAILY 04/01/23 [History] Clopidogrel [Plavix] 75 mg PO DAILY #28 tab 04/05/23 [Rx] lisinopriL [Zestril] 20 mg PO BID #60 tab 04/05/23 [Rx] Aspirin EC [Ecotrin Low Dose] 81 mg PO DAILY 11/02/23 [History] Ezetimibe [Zetia] 10 mg PO DAILY 11/02/23 [History] HYDROcodone/APAP 5-325MG [[place] 5-325] 1 tab PO Q12H PRN 11/02/23 [History] Pregabalin [Lyrica] 150 mg PO BID 11/02/23 [History] Rosuvastatin [Crestor] 20 mg PO HS 11/02/23 [History] methocarbamoL [Robaxin-750] 750 mg PO BID 11/02/23 [History] traMADol HCL 50 mg PO BID PRN 11/02/23 [History] Amoxic-Pot Clav 875-125Mg [Augmentin 875-125] 1 tab PO BID 7 Days #14 tab 11/09/23 [Rx] Docusate [Colace] 100 mg PO BID #30 capsule 11/09/23 [Rx] Docusate [Colace] 100 mg PO DAILY PRN cap 11/09/23 [Rx] HYDROcodone/APAP 5-325MG [[place] 5-325] 1 each PO Q4HR PRN tab 11/09/23 [Rx] Metoprolol Tartrate [Lopressor] 50 mg PO BID #60 tab 11/09/23 [Rx] Follow up Appointment(s)/Referral(s): Satinder Decker MD [Medical Doctor] - 1 Week (Appt wed 11/14 3:45pm) Rebecca Winston MD [Primary Care Provider] - 1-2 days () Discharge Disposition: HOME SELF-CARE
== END 2023-11-09 14:46 | disposition home or self-care (01) | DRG 710 ==
LOC: EC 09:15 → 6NMEDSUR 12:18 → UNDOADMOB 12:20 → INTOOBSV 12:21 → OBSVTOIN 12:21 → 6NMEDSUR 15:49 → 3SCARD 21:04
PROVIDERS: ADMIT Internal Medicine; ATTEND Internal Medicine
PROC: 0FT44ZZ Resection of Gallbladder, Percutaneous Endoscopic Approach (ICD-10-PCS; principal; 2023-11-02)
DX: A41.9 Sepsis, unspecified organism (principal); K82.1 Hydrops of gallbladder; K80.01 Calculus of gallbladder with acute cholecystitis with obstruction; E78.2 Mixed hyperlipidemia; G89.4 Chronic pain syndrome; I10 Essential (primary) hypertension; I25.10 Atherosclerotic heart disease of native coronary artery without angina pectoris; K21.00 Gastro-esophageal reflux disease with esophagitis, without bleeding; M43.16 Spondylolisthesis, lumbar region; M81.0 Age-related osteoporosis without current pathological fracture; E87.20 Acidosis, unspecified; E87.6 Hypokalemia; I69.354 Hemiplegia and hemiparesis following cerebral infarction affecting left non-dominant side; M47.816 Spondylosis without myelopathy or radiculopathy, lumbar region; Q21.12 Patent foramen ovale; K57.30 Diverticulosis of large intestine without perforation or abscess without bleeding
CPT/HCPCS: 36415; 74176; 76705; 80048; 80053; 81003; 82150; 83605; 83690; 84484; 85025; 85610; 87040; 88304; 93005; 96361; 96365; 96366; 96375; 96376; 99285

== ENCOUNTER 2023-11-10 11:23 | Emergency (ER) | payer OTHER ==
[2023-11-10 11:30] VITALS: TEMP 99
[2023-11-10] MEDS: droPERidol 5 MG/2 ML VIAL IVP ONE (12:28)
[2023-11-10] MEDS: SODIUM CHLORIDE 0.9% 2,000 ML IV STA (12:30)
--- NOTE | 2023-11-10 12:59 | ED ---
Abdominal Pain HPI - General Chief Complaint: Abdominal Pain Stated Complaint: Post op complications -gallbladder Time Seen by Provider: 11/10/23 11:42 Source: patient, RN notes reviewed Mode of arrival: ambulatory Limitations: no limitations - History of Present Illness Initial Comments: 58-year-old male presents emergency department with chief complaint of abdominal pain, nausea vomiting. He states pain reoccurring issues with this in which he has been seen at multiple ERs and has had multiple images. Patient states that he has severe mid abdominal pain associated with nausea and vomiting. Patient was recently hospitalized and had a cholecystectomy by Dr. Decker and discharged yesterday. States his pain started just an hour ago and is very similar to his prior episodes. Patient is noted to be diaphoretic denies chest pain shortness of breath fever no dysuria he states he has not had a bowel movement. - Related Data Home Medications Medication Instructions Recorded Confirmed amLODIPine [Norvasc] 2.5 mg PO DAILY 04/01/23 11/10/23 Aspirin EC [Ecotrin Low Dose] 81 mg PO DAILY 11/02/23 11/10/23 Ezetimibe [Zetia] 10 mg PO DAILY 11/02/23 11/10/23 Pregabalin [Lyrica] 150 mg PO BID 11/02/23 11/10/23 Rosuvastatin [Crestor] 20 mg PO HS 11/02/23 11/10/23 methocarbamoL [Robaxin-750] 750 mg PO BID 11/02/23 11/10/23 traMADol HCL 50 mg PO BID PRN 11/02/23 11/10/23 HYDROcodone/APAP 5-325MG [[place] 1 tab PO Q4HR PRN 11/10/23 11/10/23 5-325] Previous Rx's Medication Instructions Recorded Clopidogrel [Plavix] 75 mg PO DAILY #28 tab 04/05/23 lisinopriL [Zestril] 20 mg PO BID #60 tab 04/05/23 Amoxic-Pot Clav 875-125Mg 1 tab PO BID 7 Days #14 tab 11/09/23 [Augmentin 875-125] Docusate [Colace] 100 mg PO BID #30 capsule 11/09/23 Docusate [Colace] 100 mg PO DAILY PRN cap 11/09/23 Metoprolol Tartrate [Lopressor] 50 mg PO BID #60 tab 11/09/23 Allergies Allergy/AdvReac Type Severity Reaction Status Date / Time No Known Allergies Allergy Verified 11/10/23 14:49 Review of Systems ROS Statement: Those systems with pertinent positive or pertinent negative responses have been documented in the HPI. ROS Other: All systems not noted in ROS Statement are negative. Past Medical History Past Medical History: CVA/TIA, Hyperlipidemia, Hypertension, Osteoarthritis (OA) History of Any Multi-Drug Resistant Organisms: None Reported Past Surgical History: Joint Replacement Additional Past Surgical History / Comment(s): 9 teeth pulled under anesthesia Past Anesthesia/Blood Transfusion Reactions: No Reported Reaction Past Psychological History: No Psychological Hx Reported Smoking Status: Former smoker Past Alcohol Use History: Daily, Heavy Past Drug Use History: Marijuana - Past Family History Father Family Medical History: Cancer General Exam Limitations: no limitations General appearance: alert, in no apparent distress Head exam: Present: atraumatic, normocephalic, normal inspection Eye exam: Present: normal appearance, PERRL, EOMI. Absent: scleral icterus, conjunctival injection, periorbital swelling ENT exam: Present: normal exam, normal oropharynx, mucous membranes moist Neck exam: Present: normal inspection, full ROM. Absent: tenderness, meningismus, lymphadenopathy Respiratory exam: Present: normal lung sounds bilaterally. Absent: respiratory distress, wheezes, rales, rhonchi, stridor Cardiovascular Exam: Present: regular rate, normal rhythm, normal heart sounds. Absent: systolic murmur, diastolic murmur, rubs, gallop, clicks GI/Abdominal exam: Present: soft, tenderness, normal bowel sounds, other (Ecchymosis noted, surgical incisions close no erythema). Absent: distended, guarding, rebound, rigid Back exam: Absent: CVA tenderness (R), CVA tenderness (L) Neurological exam: Present: alert Skin exam: Present: warm, dry, intact, normal color. Absent: rash Course Vital Signs 11/10/23 11/10/23 11:25 15:12 Temperature 99.0 F Pulse Rate 72 103 H Respiratory 22 16 Rate Blood Pressure 202/108 198/96 O2 Sat by Pulse 99 100 Oximetry Medical Decision Making - Medical Decision Making Was pt. sent in by a medical professional or institution (, PA, BEAM PRESS OPERATOR, urgent care, hospital, or detention...) When possible be specific @ -No Did you speak to anyone other than the patient for history (EMS, parent, family, police, friend...)? What history was obtained from this source @ -No Did you review nursing and triage notes (agree or disagree)? Why? @ -I reviewed and agree with nursing and triage notes Were old charts reviewed (outside hosp., previous admission, EMS record, old EKG, old radiological studies, urgent care reports/EKG's, detention records)? Report findings @ -No old charts were reviewed Differential Diagnosis (chest pain, altered mental status, abdominal pain women, abdominal pain men, vaginal bleeding, weakness, fever, dyspnea, syncope, headache, dizziness, GI bleed, back pain, seizure, CVA, palpatations, mental health, musculoskeletal)? @ -Differential Abdominal Pain Men: Appendicitis, cholecystitis, diverticulosis, ischemic bowel, pancreatitis, he patitis, UTI, gastroenteritis, AAA, incarcerated hernia, bowel obstruction, constipation, inflammatory bowel, hepatitis, peptic ulcer disease, splenic infarction, perforated viscus, testicular torsion, this is not meant to be an all-inclusive list EKG interpreted by me (3pts min.). @ -None X-rays interpreted by me (1pt min.). @ -None done CT interpreted by me (1pt min.). @ -CT of the abdomen pelvis showing evidence of large biliary fluid collection concerning for a bili Viky or hematoma U/S interpreted by me (1pt. min.). @ -None done What testing was considered but not performed or refused? (CT, X-rays, U/S, labs)? Why? @ -None What meds were considered but not given or refused? Why? @ -None Did you discuss the management of the patient with other professionals (professionals i.e. DrLilia, PA, BEAM PRESS OPERATOR, lab, RT, psych nurse, social science professor, children counselor, teacher, forest fire management officer, lead case manager)? Give summary @ -I did this case with Dr. Winston, Dr. Decker, Dr. Reeves in which there is concern for possible bilioma in which patient's case discussed with GI physician Dr. Issa at [facility] who accepts transfer Was smoking cessation discussed for >3mins.? @ -No Was critical care preformed (if so, how long)? @ -No Were there social determinants of health that impacted care today? How? (Homelessness, low income, unemployed, alcoholism, drug addiction, transportation, low edu. Level, literacy, decrease access to med. care, shelter, rehab)? @ -No Was there de-escalation of care discussed even if they declined (Discuss DNR or withdrawal of care, Hospice)? DNR status @ -No What co-morbidities impacted this encounter? (DM, HTN, Smoking, COPD, CAD, Cancer, CVA, ARF, Chemo, Hep., AIDS, mental health diagnosis, sleep apnea, morbid obesity)? @ -None Was patient admitted / discharged? Hospital course, mention meds given and route, prescriptions, significant lab abnormalities, going to OR and other per tinent info. @ -Patient was transferred to [facility] for GI evaluation for concern for biliary leak. Patient did get dose of IV antibiotics patient has lactic of 3.2 with leukocytosis at 15.4 pain is improved, antiemetics were provided. Undiagnosed new problem with uncertain prognosis? @ -No Drug Therapy requiring intensive monitoring for toxicity (Heparin, Nitro, Insulin, Cardizem)? @ -No Were any procedures done? @ -No Diagnosis/symptom? @ -BiliOma, abdominal pain Acute, or Chronic, or Acute on Chronic? @ acute Uncomplicated (without systemic symptoms) or Complicated (systemic symptoms)? @ -Complicated Side effects of treatment? @ -No Exacerbation, Progression, or Severe Exacerbation? @ -No Poses a threat to life or bodily function? How? (Chest pain, USA, NC, pneumonia, PE, COPD, DKA, ARF, appy, cholecystitis, CVA, Diverticulitis, Homicidal, Suicidal, threat to staff... and all critical care pts) @ -No - Lab Data Result diagrams: 11/10/23 12:33 11/10/23 12:33 Lab Results 11/10/23 11/10/23 11/10/23 Range/Units 12:33 12:33 12:33 WBC 15.4 H (3.8-10.6) k/uL RBC 3.81 L (4.30-5.90) m/uL Hgb 11.2 L (13.0-17.5) gm/dL Hct 33.7 L (39.0-53.0) % MCV 88.4 (80.0-100.0) fL MCH 29.4 (25.0-35.0) pg MCHC 33.3 (31.0-37.0) g/dL RDW 13.1 (11.5-15.5) % Plt Count 350 (150-450) k/uL MPV 7.5 Neutrophils % 86 % Lymphocytes % 7 % Monocytes % 5 % Eosinophils % 0 % Basophils % 0 % Neutrophils # 13.3 H (1.3-7.7) k/uL Lymphocytes # 1.2 (1.0-4.8) k/uL Monocytes # 0.8 (0-1.0) k/uL Eosinophils # 0.1 (0-0.7) k/uL Basophils # 0.0 (0-0.2) k/uL Sodium 137 (137-145) mmol/L Potassium 3.5 (3.5-5.1) mmol/L Chloride 103 (98-107) mmol/L Carbon Dioxide 24 (22-30) mmol/L Anion Gap 10 mmol/L BUN 12 (9-20) mg/dL Creatinine 0.61 L (0.66-1.25) mg/dL Est GFR (CKD-EPI)AfAm >90 (>60 ml/min/1.73 sqM) Est GFR (CKD-EPI)NonAf >90 (>60 ml/min/1.73 sqM) Glucose 131 H (74-99) mg/dL Lactic Ac Sepsis Rflx Plasma Lactic Acid Kurt (0.7-2.0) mmol/L Calcium 9.0 (8.4-10.2) mg/dL Total Bilirubin 1.1 (0.2-1.3) mg/dL AST 25 (17-59) U/L ALT 28 (4-49) U/L Alkaline Phosphatase 69 (38-126) U/L Total Protein 6.8 (6.3-8.2) g/dL Albumin 4.2 (3.5-5.0) g/dL Lipase 87 (23-300) U/L Urine Color Colorless Urine Appearance Clear (Clear) Urine pH 7.5 (5.0-8.0) Ur Specific [place] 1.015 (1.001-1.035) Urine Protein Negative (Negative) Urine Glucose (UA) Negative (Negative) Urine Ketones Negative (Negative) Urine Blood Negative (Negative) Urine Nitrite Negative (Negative) Urine Bilirubin Negative (Negative) Urine Urobilinogen <2.0 (<2.0) mg/dL Ur Leukocyte Esterase Negative (Negative) Urine Opiates Screen (NotDetected) Ur Oxycodone Screen (NotDetected) Urine Methadone Screen (NotDetected) Ur Barbiturates Screen (NotDetected) U Tricyclic Antidepress (NotDetected) Ur Phencyclidine Scrn (NotDetected) Ur Amphetamines Screen (NotDetected) U Methamphetamines Scrn (NotDetected) U Benzodiazepines Scrn (NotDetected) Urine Cocaine Screen (NotDetected) U Marijuana (THC) Screen (NotDetected) 11/10/23 11/10/23 11/10/23 Range/Units 12:33 12:33 13:14 WBC (3.8-10.6) k/uL RBC (4.30-5.90) m/uL Hgb (13.0-17.5) gm/dL Hct (39.0-53.0) % MCV (80.0-100.0) fL MCH (25.0-35.0) pg MCHC (31.0-37.0) g/dL RDW (11.5-15.5) % Plt Count (150-450) k/uL MPV Neutrophils % % Lymphocytes % % Monocytes % % Eosinophils % % Basophils % % Neutrophils # (1.3-7.7) k/uL Lymphocytes # (1.0-4.8) k/uL Monocytes # (0-1.0) k/uL Eosinophils # (0-0.7) k/uL Basophils # (0-0.2) k/uL Sodium (137-145) mmol/L Potassium (3.5-5.1) mmol/L Chloride (98-107) mmol/L Carbon Dioxide (22-30) mmol/L Anion Gap mmol/L BUN (9-20) mg/dL Creatinine (0.66-1.25) mg/dL Est GFR (CKD-EPI)AfAm (>60 ml/min/1.73 sqM) Est GFR (CKD-EPI)NonAf (>60 ml/min/1.73 sqM) Glucose (74-99) mg/dL Lactic Ac Sepsis Rflx Y Plasma Lactic Acid Kurt 3.2 H* (0.7-2.0) mmol/L Calcium (8.4-10.2) mg/dL Total Bilirubin (0.2-1.3) mg/dL AST (17-59) U/L ALT (4-49) U/L Alkaline Phosphatase (38-126) U/L Total Protein (6.3-8.2) g/dL Albumin (3.5-5.0) g/dL Lipase (23-300) U/L Urine Color Urine Appearance (Clear) Urine pH (5.0-8.0) Ur Specific [place] (1.001-1.035) Urine Protein (Negative) Urine Glucose (UA) (Negative) Urine Ketones (Negative) Urine Blood (Negative) Urine Nitrite (Negative) Urine Bilirubin (Negative) Urine Urobilinogen (<2.0) mg/dL Ur Leukocyte Esterase (Negative) Urine Opiates Screen Detected H (NotDetected) Ur Oxycodone Screen Not Detected (NotDetected) Urine Methadone Screen Not Detected (NotDetected) Ur Barbiturates Screen Not Detected (NotDetected) U Tricyclic Antidepress Not Detected (NotDetected) Ur Phencyclidine Scrn Not Detected (NotDetected) Ur Amphetamines Screen Not Detected (NotDetected) U Methamphetamines Scrn Not Detected (NotDetected) U Benzodiazepines Scrn Not Detected (NotDetected) Urine Cocaine Screen Not Detected (NotDetected) U Marijuana (THC) Screen Detected H (NotDetected) 11/10/23 Range/Units 15:17 WBC (3.8-10.6) k/uL RBC (4.30-5.90) m/uL Hgb (13.0-17.5) gm/dL Hct (39.0-53.0) % MCV (80.0-100.0) fL MCH (25.0-35.0) pg MCHC (31.0-37.0) g/dL RDW (11.5-15.5) % Plt Count (150-450) k/uL MPV Neutrophils % % Lymphocytes % % Monocytes % % Eosinophils % % Basophils % % Neutrophils # (1.3-7.7) k/uL Lymphocytes # (1.0-4.8) k/uL Monocytes # (0-1.0) k/uL Eosinophils # (0-0.7) k/uL Basophils # (0-0.2) k/uL Sodium (137-145) mmol/L Potassium (3.5-5.1) mmol/L Chloride (98-107) mmol/L Carbon Dioxide (22-30) mmol/L Anion Gap mmol/L BUN (9-20) mg/dL Creatinine (0.66-1.25) mg/dL Est GFR (CKD-EPI)AfAm (>60 ml/min/1.73 sqM) Est GFR (CKD-EPI)NonAf (>60 ml/min/1.73 sqM) Glucose (74-99) mg/dL Lactic Ac Sepsis Rflx Plasma Lactic Acid Kurt 1.1 (0.7-2.0) mmol/L Calcium (8.4-10.2) mg/dL Total Bilirubin (0.2-1.3) mg/dL AST (17-59) U/L ALT (4-49) U/L Alkaline Phosphatase (38-126) U/L Total Protein (6.3-8.2) g/dL Albumin (3.5-5.0) g/dL Lipase (23-300) U/L Urine Color Urine Appearance (Clear) Urine pH (5.0-8.0) Ur Specific [place] (1.001-1.035) Urine Protein (Negative) Urine Glucose (UA) (Negative) Urine Ketones (Negative) Urine Blood (Negative) Urine Nitrite (Negative) Urine Bilirubin (Negative) Urine Urobilinogen (<2.0) mg/dL Ur Leukocyte Esterase (Negative) Urine Opiates Screen (NotDetected) Ur Oxycodone Screen (NotDetected) Urine Methadone Screen (NotDetected) Ur Barbiturates Screen (NotDetected) U Tricyclic Antidepress (NotDetected) Ur Phencyclidine Scrn (NotDetected) Ur Amphetamines Screen (NotDetected) U Methamphetamines Scrn (NotDetected) U Benzodiazepines Scrn (NotDetected) Urine Cocaine Screen (NotDetected) U Marijuana (THC) Screen (NotDetected) Disposition Clinical Impression: Abdominal pain, Biloma Disposition: OTHER INSTITUTION NOT DEFINED Condition: Fair Referrals: Rebecca Winston MD [Primary Care Provider] - 1-2 days Time of Disposition: 16:14 - Out of Hospital Transfer - Req. Specs Out of Hospital Transfer - Requested Specifics: Other Emergency [facility] ([facility]
[2023-11-10 13:04] LABS: Basophils % (A) 0 %; Eosinophils # (A) 0.1 k/uL (0-0.7); Eosinophils % (A) 0 %; HCT 33.7 % (39.0-53.0); HGB 11.2 gm/dL (13.0-17.5); Lymphocytes # (A) 1.2 k/uL (1.0-4.8); Lymphocytes % (A) 7 %; MCH 29.4 pg (25.0-35.0); MCHC 33.3 g/dL (31.0-37.0); MCV 88.4 fL (80.0-100.0); Mean Platelet Volume 7.5; Monocytes # (A) 0.8 k/uL (0-1.0); Monocytes % (A) 5 %; Neutrophils # (A) 13.3 k/uL (1.3-7.7); Neutrophils % (A) 86 %; Platelet Count 350 k/uL (150-450); RBC 3.81 m/uL (4.30-5.90); RDW 13.1 % (11.5-15.5); WBC 15.4 k/uL (3.8-10.6)
[2023-11-10 13:05] LABS: ALT 28 U/L (4-49); AST 25 U/L (17-59); African American GFR (CKD) >90 (>60 ml/min/1.73 sqM); Albumin 4.2 g/dL (3.5-5.0); Alkaline Phosphatase 69 U/L (38-126); Anion Gap 10 mmol/L; Blood Urea Nitrogen 12 mg/dL (9-20); Carbon Dioxide 24 mmol/L (22-30); Chloride 103 mmol/L (98-107); Glucose 131 mg/dL (74-99); Lipase 87 U/L (23-300); Non-African American GFR(CKD) >90 (>60 ml/min/1.73 sqM); Potassium 3.5 mmol/L (3.5-5.1); Sodium 137 mmol/L (137-145); Total Bilirubin 1.1 mg/dL (0.2-1.3); Total Protein 6.8 g/dL (6.3-8.2)
[2023-11-10 13:08] LABS: Appearance,Urine Clear (Clear); Bilirubin,Urine Negative (Negative); Blood,Urine Negative (Negative); Color,Urine Colorless; Glucose,Urine (UA) Negative (Negative); Ketones,Urine Negative (Negative); Leukocyte Esterase,Urine Negative (Negative); Nitrite,Urine Negative (Negative); PH, Urine 7.5 (5.0-8.0); Protein,Urine Negative (Negative); Specific Gravity,Urine 1.015 (1.001-1.035); Urobilinogen,Urine <2.0 mg/dL (<2.0)
[2023-11-10 13:18] LABS: Amphetamine Screen,Urine Not Detected (NotDetected); Barbiturate Screen,Urine Not Detected (NotDetected); Benzodiazepines Screen,Urine Not Detected (NotDetected); Cocaine Screen,Urine Not Detected (NotDetected); Methadone Screen, Urine Not Detected (NotDetected); Opiate Screen,Urine Detected (NotDetected); Oxycodone Screen, Urine Not Detected (NotDetected); Phencyclidine Screen,Urine Not Detected (NotDetected); Tricyclic Antidepressant,Urine Not Detected (NotDetected); Urn Cannabinoid Scrn Detected (NotDetected)
[2023-11-10] MEDS: HYDROmorphone 1 MG/ML 1 ML SYRINGE IVP STA ×2 (14:31→18:30)
--- NOTE | 2023-11-10 15:04 | CT ---
EXAMINATION TYPE: CT abdomen pelvis w con DATE OF EXAM: 11/10/2023 COMPARISON: 11/02/2023 HISTORY: Abdominal pain, s/p cholecystectomy CT DLP: 1467.3 mGycm Automated exposure control for dose reduction was used. TECHNIQUE: Helical acquisition of images was performed from the lung bases through the pelvis. CONTRAST: Performed without Oral Contrast and with IV Contrast, patient injected with 100ml mL of Isovue 300. FINDINGS: There are tiny bibasilar effusions and minimal atelectasis posteriorly. There are postsurgical changes of recent cholecystectomy. There is a 3.7 x 11.7 cm fluid collection e xtending from the gallbladder fossa on the medial aspect of the liver consistent with a complex fluid collection possibly biloma or hematoma. There is no biliary ductal dilatation. There is no focal mass or organomegaly involving the liver, pancreas, spleen or adrenal glands. The bowel loops are normal in caliber and there is no dilatation or obstruction. There is no free intraperitoneal air. There are gas bubbles in soft tissue and abnormal soft tissue d ensity in the anterior midline abdomen likely secondary to recent surgical instrumentation. There is no solid renal mass or hydronephrosis and there is homogeneous contrast enhancement of the r enal parenchyma. The caliber the abdominal aorta is normal is no retroperitoneal adenopathy or hemorr eagle. No pelvic mass, free fluid, abscess or adenopathy. There is a right hip prosthesis. There is moderate degenerative change of the left hip. IMPRESSION: 1 Post surgical changes of recent cholecystectomy scattered about. 2. Large complex fluid collection extending from the gallbladder fossa along the medial aspect liver consistent with hematoma or biloma.
[2023-11-10] MEDS: PIPERACILLIN-TAZOBACTAM 3.375 GM in SODIUM CHLORIDE 0.9% 100 ML IVPB STA (16:02)
[2023-11-10 19:10] VITALS: BP 152/98; PULSE 100; RESP 18
== END 2023-11-10 18:35 | disposition other institution (70) ==
LOC: EC 11:23
DX: K83.8 Other specified diseases of biliary tract (principal); F12.90 Cannabis use, unspecified, uncomplicated; Z87.891 Personal history of nicotine dependence
CPT/HCPCS: 36415; 80053; 83605; 83690; 85025; 81003; 80306; 74177; 99285; 96374; 96375 ×3; 96361; J2543; J1170; Q9967; J1790; 96365; 96366

== ENCOUNTER → 2024-03-01 | Outpatient (CLI) | payer OTHER | END | disposition home or self-care (01) | LOC: LABWHC1 11:28 | PROVIDERS: ATTEND Registered Nurse | DX: Z01.812 Encounter for preprocedural laboratory examination (principal) | CPT/HCPCS: 36415; 85730 ==

== ENCOUNTER 2024-03-18 10:20 | Emergency (ER) | payer OTHER ==
[2024-03-18 10:29] VITALS: RESP 18
--- NOTE | 2024-03-18 10:48 | ED ---
General Adult HPI - General Chief complaint: Nausea/Vomiting/Diarrhea Stated complaint: vomiting Time Seen by Provider: 03/18/24 10:35 Source: patient, family, RN notes reviewed, old records reviewed Mode of arrival: ambulatory Limitations: no limitations - History of Present Illness Initial comments: This is a 58-year-old male who presents to the emergency department stating he started vomiting last night has been vomiting ever since. Patient states he has gallbladder out in October when this happened in October he had to come in and be sent to another hospital to have a GI doctor look at his stomach and duodenum. Patient states he did not have an ulcer at that time. Patient denies being on any blood thinners. Patient denies any blood in the emesis. Patient denies any history of ulcers. Patient states back in the day he was quite a heavy drinker. Patient denies chest pain or difficulty breathing. Patient states he has abdominal pain and its centrally located. - Related Data Home Medications Medication Instructions Recorded Confirmed amLODIPine [Norvasc] 2.5 mg PO DAILY 04/01/23 03/18/24 Aspirin EC [Ecotrin Low Dose] 81 mg PO DAILY 11/02/23 03/18/24 Ezetimibe [Zetia] 10 mg PO DAILY 11/02/23 03/18/24 Pregabalin [Lyrica] 150 mg PO BID 11/02/23 03/18/24 Rosuvastatin [Crestor] 20 mg PO HS 11/02/23 03/18/24 methocarbamoL [Robaxin-750] 750 mg PO BID 11/02/23 03/18/24 Clopidogrel [Plavix] 75 mg PO DIRECTED 03/18/24 03/18/24 HYDROcodone/APAP 10-325MG [Singer 1 tab PO Q12H PRN 03/18/24 03/18/24 10-325] Previous Rx's Medication Instructions Recorded lisinopriL [Zestril] 20 mg PO BID #60 tab 04/05/23 Metoprolol Tartrate [Lopressor] 50 mg PO BID #60 tab 11/09/23 Allergies Allergy/AdvReac Type Severity Reaction Status Date / Time No Known Allergies Allergy Verified 03/18/24 13:33 Review of Systems ROS Statement: Those systems with pertinent positive or pertinent negative responses have been documented in the HPI. ROS Other: All systems not noted in ROS Statement are negative. Past Medical History Past Medical History: CVA/TIA, Hyperlipidemia, Hypertension, Osteoarthritis (OA) History of Any Multi-Drug Resistant Organisms: None Reported Past Surgical History: Joint Replacement Additional Past Surgical History / Comment(s): 9 teeth pulled under anesthesia Past Anesthesia/Blood Transfusion Reactions: No Reported Reaction Past Psychological History: No Psychological Hx Reported Smoking Status: Former smoker Past Alcohol Use History: Daily, Heavy Past Drug Use History: Marijuana - Past Family History Father Family Medical History: Cancer General Exam - General Exam Comments Initial Comments: GENERAL: Patient is well-developed and well-nourished. Patient is nontoxic and well- hydrated and is in mild distress. ENT: Neck is soft and supple. No significant lymphadenopathy is noted. Oropharynx is clear. Moist mucous membranes. Neck has full range of motion without eliciting any pain. EYES: The sclera were anicteric and conjunctiva were pink and moist. Extraocular movements were intact and pupils were equal round and reactive to light. Eyelids were unremarkable. PULMONARY: Unlabored respirations. Good breath sounds bilaterally. No audible rales rhonchi or wheezing was noted. CARDIOVASCULAR: There is a regular rate and rhythm without any murmurs gallops or rubs. ABDOMEN: Soft and nontender with normal bowel sounds. I find no areas of tenderness on palpation SKIN: Skin is clear with no lesions or rashes and otherwise unremarkable. NEUROLOGIC: Patient is alert and oriented x3. Cranial nerves II through XII are grossly intact. Motor and sensory are also intact. Normal speech, volume and content. Symmetrical smile. MUSCULOSKELETAL: Normal extremities with adequate strength and full range of motion. No lower extremity swelling or edema. No calf tenderness. LYMPHATICS: No significant lymphadenopathy is noted PSYCHIATRIC: Normal psychiatric evaluation. Limitations: no limitations Course Vital Signs 03/18/24 03/18/24 10:26 12:25 Temperature 97.9 F 98.9 F Pulse Rate 72 89 Respiratory 18 18 Rate Blood Pressure 128/86 146/71 O2 Sat by Pulse 99 98 Oximetry Medical Decision Making - Medical Decision Making Was pt. sent in by a medical professional or institution (, PA, [employer], urgent care, hospital, or [facility]...) When possible be specific @ -No Did you speak to anyone other than the patient for history (EMS, parent, family, police, friend...)? What history was obtained from this source @ -No Did you review nursing and triage notes (agree or disagree)? Why? @ -I reviewed and agree with nursing and triage notes Were old charts reviewed (outside hosp., previous admission, EMS record, old EKG, old radiological studies, urgent care reports/EKG's, [facility] records)? Report findings @ -No old charts were reviewed Differential Diagnosis? @ -Differential Abdominal Pain Men: Appendicitis, cholecystitis, diverticulosis, ischemic bowel, pancreatitis, hep atitis, UTI, gastroenteritis, AAA, incarcerated hernia, bowel obstruction, constipation, inflammatory bowel, hepatitis, peptic ulcer disease, splenic infarction, perforated viscus, testicular torsion, this is not meant to be an all-inclusive list EKG interpreted by me (3pts min.). @ -As above X-rays interpreted by me (1pt min.). @ -None done CT interpreted by me (1pt min.). @ -None done U/S interpreted by me (1pt. min.). @ -None done What testing was considered but not performed or refused? (CT, X-rays, U/S, labs)? Why? @ -None What meds were considered but not given or refused? Why? @ -None Did you discuss the management of the patient with other professionals (professionals i.e. , PA, [employer]ER, lab, RT, psych nurse, social service coordinator, senior sas developer, teacher, sales promotion officer, watch case polisher)? Give summary @ -No Was smoking cessation discussed for >3mins.? @ -No Was critical care preformed (if so, how long)? @ -No Were there social determinants of health that impacted care today? How? (Homelessness, low income, unemployed, alcoholism, drug addiction, transportation, low edu. Level, literacy, decrease access to med. care, group home, rehab)? @ -No Was there de-escalation of care discussed even if they declined (Discuss DNR or withdrawal of care, Hospice)? DNR status @ -No What co-morbidities impacted this encounter? (DM, HTN, Smoking, COPD, CAD, Cancer, CVA, ARF, Chemo, Hep., AIDS, mental health diagnosis, sleep apnea, morbid obesity)? @ -None Was patient admitted / discharged? Hospital course, mention meds given and route, prescriptions, significant lab abnormalities, going to OR and other perti nent info. @ -Patient received Zofran but still was nauseous so he received Reglan. Patient then had Dilaudid because he was not able to have any of his pain medications this morning. Patient was feeling much better I went back and reexamined his abdomen it was benign and patient stated he no longer was nauseous and felt comfortable going home. Patient also received normal saline 1 L Undiagnosed new problem with uncertain prognosis? @ -No Drug Therapy requiring intensive monitoring for toxicity (Heparin, Nitro, Insulin, Cardizem)? @ -No Were any procedures done? @ -No Diagnosis/symptom? @ -Acute vomiting Acute, or Chronic, or Acute on Chronic? @ -Acute Uncomplicated (without systemic symptoms) or Complicated (systemic symptoms)? @ -Complicated Side effects of treatment? @ -No Exacerbation, Progression, or Severe Exacerbation? @ -No Poses a threat to life or bodily function? How? (Chest pain, [place], [place], pneumonia, PE, COPD, DKA, ARF, appy, cholecystitis, CVA, Diverticulitis, Homicidal, Suicidal, threat to staff... and all critical care pts) @ -No - Lab Data Result diagrams: 03/18/24 10:53 03/18/24 10:53 Lab Results 03/18/24 03/18/24 03/18/24 Range/Units 10:53 10:53 10:53 WBC 16.8 H (3.8-10.6) k/uL RBC 5.10 (4.30-5.90) m/uL Hgb 14.2 (13.0-17.5) gm/dL Hct 42.9 (39.0-53.0) % MCV 84.1 (80.0-100.0) fL MCH 27.8 (25.0-35.0) pg MCHC 33.0 (31.0-37.0) g/dL RDW 14.0 (11.5-15.5) % Plt Count 454 H (150-450) k/uL MPV 6.5 Neutrophils % 89 % Lymphocytes % 5 % Monocytes % 5 % Eosinophils % 0 % Basophils % 0 % Neutrophils # 15.0 H (1.3-7.7) k/uL Lymphocytes # 0.8 L (1.0-4.8) k/uL Monocytes # 0.9 (0-1.0) k/uL Eosinophils # 0.1 (0-0.7) k/uL Basophils # 0.0 (0-0.2) k/uL Sodium 140 (137-145) mmol/L Potassium 3.6 (3.5-5.1) mmol/L Chloride 105 (98-107) mmol/L Carbon Dioxide 22 (22-30) mmol/L Anion Gap 13 mmol/L BUN 14 (9-20) mg/dL Creatinine 0.58 L (0.66-1.25) mg/dL Est GFR (CKD-EPI)AfAm >90 (>60 ml/min/1.73 sqM) Est GFR (CKD-EPI)NonAf >90 (>60 ml/min/1.73 sqM) Glucose 137 H (74-99) mg/dL Plasma Lactic Acid Kurt 1.3 (0.7-2.0) mmol/L Calcium 10.4 H (8.4-10.2) mg/dL Total Bilirubin 0.8 (0.2-1.3) mg/dL AST 33 (17-59) U/L ALT 26 (4-49) U/L Alkaline Phosphatase 68 (38-126) U/L Total Protein 7.7 (6.3-8.2) g/dL Albumin 4.7 (3.5-5.0) g/dL Amylase 42 (30-110) U/L Lipase 48 (23-300) U/L Serum Alcohol <10 mg/dL Disposition Clinical Impression: Acute vomiting Disposition: HOME SELF-CARE Condition: Good Instructions (If sedation given, give patient instructions): Acute Nausea and Vomiting (ED) Is patient prescribed a controlled substance at d/c from ED?: No Referrals: Rebecca Winston MD [Primary Care Provider] - 1-2 days Time of Disposition: 14:00
[2024-03-18] MEDS: ONDANSETRON 4 MG/2 ML VIAL IVP STA (10:59)
[2024-03-18] MEDS: SODIUM CHLORIDE 0.9% 1,000 ML IV STA (10:59)
[2024-03-18] MEDS: PANTOPRAZOLE 40 MG/10 ML VIAL IVP STA (11:00)
[2024-03-18 11:14] LABS: HCT 42.9 % (39.0-53.0); HGB 14.2 gm/dL (13.0-17.5); Lymphocytes % (A) 5 %; MCH 27.8 pg (25.0-35.0); MCV 84.1 fL (80.0-100.0); Mean Platelet Volume 6.5; Monocytes % (A) 5 %; Neutrophils % (A) 89 %; Platelet Count 454 k/uL (150-450); WBC 16.8 k/uL (3.8-10.6)
[2024-03-18 11:15] LABS: Basophils % (A) 0 %; Eosinophils # (A) 0.1 k/uL (0-0.7); Eosinophils % (A) 0 %; Lymphocytes # (A) 0.8 k/uL (1.0-4.8); Monocytes # (A) 0.9 k/uL (0-1.0)
[2024-03-18 11:36] LABS: ALT 26 U/L (4-49); AST 33 U/L (17-59); African American GFR (CKD) >90 (>60 ml/min/1.73 sqM); Albumin 4.7 g/dL (3.5-5.0); Alcohol <10 mg/dL; Alkaline Phosphatase 68 U/L (38-126); Amylase 42 U/L (30-110); Anion Gap 13 mmol/L; Blood Urea Nitrogen 14 mg/dL (9-20); Calcium 10.4 mg/dL (8.4-10.2); Carbon Dioxide 22 mmol/L (22-30); Chloride 105 mmol/L (98-107); Glucose 137 mg/dL (74-99); Lipase 48 U/L (23-300); Non-African American GFR(CKD) >90 (>60 ml/min/1.73 sqM); Potassium 3.6 mmol/L (3.5-5.1); Sodium 140 mmol/L (137-145); Total Bilirubin 0.8 mg/dL (0.2-1.3); Total Protein 7.7 g/dL (6.3-8.2)
[2024-03-18] MEDS: METOCLOPRAMIDE 5 MG/ML 2 ML VIAL IVP STA (11:46)
[2024-03-18 12:29] VITALS: TEMP 98.9
[2024-03-18] MEDS: HYDROmorphone 1 MG/ML 1 ML SYRINGE IVP STA (13:13)
[2024-03-18] MEDS: ONDANSETRON 4 MG ODT STARTER PACK 2 TAB BTL PO STA (14:10)
[2024-03-18 14:12] VITALS: BP 117/68; PULSE 64
== END 2024-03-18 14:10 | disposition home or self-care (01) ==
LOC: EC 10:20
DX: R11.10 Vomiting, unspecified
CPT/HCPCS: 36415; 80053; 80320; 82150; 83605; 83690; 85025; 96361; 96374; 99284

== ENCOUNTER → 2024-04-22 | Outpatient (CLI) | payer OTHER ==
[2024-04-22 10:31] LABS: Appearance,Urine Clear (Clear); Bilirubin,Urine Negative (Negative); Blood,Urine Negative (Negative); Color,Urine Yellow; Glucose,Urine (UA) Negative (Negative); Ketones,Urine Negative (Negative); Leukocyte Esterase,Urine Negative (Negative); Nitrite,Urine Negative (Negative); PH, Urine 5.5 (5.0-8.0); Partial Thromboplastin Time 26.3 sec (22.0-30.0); Protein,Urine Trace (Negative); Prothrombin Time 10.7 sec (10.0-12.5); Specific Gravity,Urine 1.032 (1.001-1.035); Urobilinogen,Urine <2.0 mg/dL (<2.0)
[2024-04-22 16:05] LABS: ALT 19 U/L (10-49); AST 16 U/L (14-35); Albumin 3.9 g/dL (3.8-4.9); Albumin/Globulin Ratio 1.86 Ratio (1.60-3.17); Alkaline Phosphatase 63 U/L (41-126); BUN/Creat Ratio 17.57 Ratio (12.00-20.00); Blood Urea Nitrogen 12.3 mg/dL (9.0-27.0); Calcium 8.9 mg/dL (8.7-10.3); Carbon Dioxide 27.7 mmol/L (21.6-31.8); Chloride 103 mmol/L (96-109); Globulin 2.1 g/dL (1.6-3.3); Glucose 103 mg/dL (70-110); Potassium 4.4 mmol/L (3.5-5.5); Sodium 140 mmol/L (135-145); Total Bilirubin 0.3 mg/dL (0.3-1.2)
[2024-04-22 16:09] LABS: Basophils # (A) 0.04 X 10*3/uL (0.00-0.10); Basophils % (A) 0.4 %; Eosinophils # (A) 0.14 X 10*3/uL (0.04-0.35); Eosinophils % (A) 1.5 %; HCT 36.5 % (39.6-50.0); HGB 11.5 g/dL (13.0-17.0); Lymphocytes # (A) 1.04 X 10*3/uL (0.90-5.00); Lymphocytes % (A) 11.3 %; MCH 28.1 pg (27.0-32.0); MCHC 31.5 g/dL (32.0-37.0); MCV 89.2 FL (80.0-97.0); Mean Platelet Volume 9.4 FL (9.5-12.2); Monocytes # (A) 0.85 X 10*3/uL (0.20-1.00); Monocytes % (A) 9.2 %; NRBC Per 100 WBC 0 X 10*3/uL (0.00-0.01); Neutrophils # (A) 7.08 X 10*3/uL (1.80-7.70); Neutrophils % (A) 77.2 %; Platelet Count 338 X 10*3/uL (140-440); RBC 4.09 X 10*6/uL (4.40-5.60); RDW 15.6 % (11.5-14.5); WBC 9.19 X 10*3/uL (4.50-10.00)
== END | disposition home or self-care (01) ==
LOC: LABWHC1 08:31
PROVIDERS: ATTEND Internal Medicine
DX: Z01.812 Encounter for preprocedural laboratory examination (principal)
CPT/HCPCS: 36415; 80053; 81003; 83036; 85025; 85610; 85730; 87070